=== PATIENT | male | born 1945 | race Caucasian/White ===

== ENCOUNTER 2017-01-21 12:54 | Inpatient (IN) ==
[2017-01-21] MEDS ORDERED: 0.9 % SODIUM CHLORIDE 1,000 ML IV ONE (13:18)
[2017-01-21] MEDS ORDERED: 0.9 % SODIUM CHLORIDE 2,000 ML IV ONE (13:39)
[2017-01-21] MEDS ORDERED: PIPERACILLIN SODIUM/TAZOBACTAM 3.375 GM in DEXTROSE 5% IN WATER 50 ML IV SCH (14:00)
[2017-01-21] MEDS ORDERED: ACETAMINOPHEN 325 MG TABLET PO ONE (14:18)
--- NOTE | 2017-01-21 14:34 | Emergency Department Note ---
Fever HPI - General Chief Complaint: Weakness Stated Complaint: sudden onset of weakness, sob Time Seen by Provider: 01/21/17 13:14 Source: patient Mode of arrival: ambulatory - History of Present Illness HPI Narrative: This 71-year-old male presents to the emergency room with onset of severe shivering and chills and shaking at 10 AM today. He reports that he was flopping so severely he could hardly get in a warm bathtub without flopping water all over the place. He denies previously having a temperature. He has some shortness of breath but this is a bit chronic maybe a little worse now. He was treated a couple weeks ago for a sinus infection. He has a minor cough that is nonproductive. He denies diarrhea. He's had 2 bowel movements today that were normal. He denies pain in his teeth sinus face area, denies chest pain, denies abdominal pain, denies dysuria frequency and urgency. He gets up once tonight. He has a near future scheduled appointment at [facility] [place] for [facility] exam. He has been on no immune suppressant. He is described by his doctor and son-in-law as looking bluish white when he got out of a hot tub this morning. He got in the hot tub on 2 separate occasions. His blood pressure at 11:50 AM was 180/60 while in the tub. At 12:15 was 120/80. He reports an interesting history of having a bad gallbladder and being significantly infected. He was life flighted to [place] and was there for about 18 days. This was approximately 3-4 years ago. There was a delay/denial in cholecystectomy because of a CVA criteria based on his ejection fraction of his heart being less than 40%. - Related Data Home Medications Medication Instructions Recorded Confirmed carvedilol 6.25 mg PO BID 03/27/16 08/13/16 doxazosin 8 mg PO QDAY 03/27/16 08/13/16 omeprazole 20 mg capsule,delayed 20 mg PO BID 03/27/16 08/13/16 release pentoxifylline ER 400 mg 400 mg PO BID 03/27/16 08/13/16 tablet,extended release aspirin 81 mg tablet,delayed 81 mg PO QDAY 05/20/16 08/13/16 release Vitamin E 400 unit PO DAILY 07/22/16 08/13/16 Previous Rx's Medication Instructions Recorded oxyCODONE/APAP [Percocet 10-325Mg] 1 - 2 tab PO Q4-6HP PRN #30 tab 07/25/16 Allergies Allergy/AdvReac Type Severity Reaction Status Date / Time lisinopril AdvReac Mild Cough Verified 01/21/17 13:00 Zmtfpzc-Dil-Eek Reductase AdvReac Mild hip and Verified 01/21/17 13:00 Inhibitor leg pain Review of Systems Constitutional: Reports: fever, chills, weakness Eyes: Reports: other (describes weak/difficulty opening eyes in AM. Goes away in few minutes.). Denies: eye pain Cardiovascular: Reports: dyspnea on exertion. Denies: chest pain, palpitations , edema Respiratory: Reports: as per HPI, other (shortness of breath some with exertion ; is chronic and persistent.) Gastrointestinal: Denies: abdominal pain, nausea, vomiting, diarrhea, constipation, hematochezia Genitourinary: Denies: urgency, dysuria, frequency Musculoskeletal: Reports: other (describes weakness in upper buttocks with certain more physical activities.). Denies: joint swelling, arthralgia Integumentary: Denies: rash, lesions Neurological: Denies: headache, weakness, numbness, paresthesias, confusion Psychiatric: Denies: anxiety, depression, suicidal thoughts Endocrine: Reports: fatigue Hematological/Lymphatic: Denies: easy bleeding, easy bruising Fever PMH - Past Medical History [facility] Narrative: Family History Father Heart attack Family/Other Heart attack Medical History (Last Updated 05/20/16 @ 15:29 by Ac Burt MD) History of tobacco use (Chronic) Cardiac LV ejection fraction 21-40% (Chronic) Hypertension, essential (Chronic) Acid reflux (Chronic) CAD (coronary artery disease) (Chronic) Cardiomyopathy (Chronic) Myocardial infarct, old (Chronic) Past Surgical History (Last Updated 05/20/16 @ 15:29 by Ac Burt MD) H/O colonoscopy (Chronic) 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 Denies: cancer, GI bleed, thyroid disease Surgical history ED: Reports: coronary bypass (CABG), other (Had a surgical procedure on his eye with a film on the retina being done in [place]. He had a urologic procedure for urethral scarring done in 2016.) Family history: Reports: non-contributory (recommendation that he recommendation that he is going) - Social History smoking status: Former smoker (remote 40 yrs ago) Alcohol use: Reports: Rarely (none for 6 months.) Drug use: Reports: none Course Vital Signs Temperature 100.8 F H 01/21/17 12:56 Pulse Rate 115 H 01/21/17 12:56 Respiratory Rate 20 01/21/17 12:56 Blood Pressure 137/79 01/21/17 12:56 Pulse Oximetry (%) 96 01/21/17 12:56 Temperature 98.1 F 01/21/17 15:17 Pulse Rate 85 01/21/17 15:46 Respiratory Rate 8 L 01/21/17 15:46 Blood Pressure 111/66 01/21/17 15:46 Pulse Oximetry (%) 94 01/21/17 15:46 Fever - [facility] [place] Narrative Medical decision making narrative: At 2:53 PM I had seen the patient several times and he remained with pinkness to his face that was mild to moderate and with stable vitals and normal sensorium. Chest x-ray appears to be unremarkable in my brief review. Several labs are still pending. - Lab Data Result diagrams: 01/21/17 14:20 01/21/17 14:19 Lab Results 01/21/17 01/21/17 01/21/17 Range/Units 14:16 14:16 14:17 WBC Cancelled RBC Cancelled Hgb Cancelled Hct Cancelled MCV Cancelled MCH Cancelled MCHC Cancelled RDW Cancelled Plt Count Cancelled MPV Cancelled Gran % Cancelled Lymph % (Auto) Cancelled [place] % (Auto) Cancelled Eos % (Auto) Cancelled Baso % (Auto) Cancelled Gran # Cancelled Lymph # Cancelled Garrard # Cancelled Eos # Cancelled Baso # Cancelled Band Neutrophils % Differential Comment Cancelled VBG Lactic Acid (0.5-2.2) mmol/L Sodium Cancelled Potassium Cancelled Chloride Cancelled Carbon Dioxide Cancelled Anion Gap Cancelled BUN Cancelled Creatinine Cancelled GFR Calculation Cancelled BUN/Creatinine Ratio Cancelled Glucose Cancelled Calcium Cancelled Total Bilirubin Cancelled AST Cancelled ALT Cancelled Alkaline Phosphatase Cancelled Total Protein Cancelled Albumin Cancelled Globulin Cancelled Albumin/Globulin Ratio Cancelled Procalcitonin 1.16 (<0.10) ng/mL Urine Color Urine Appearance Urine pH (5.0-9.0) Ur Specific [place] (1.000-1.035) Urine Protein (NEG) mg/dL Urine Glucose (UA) (NEG) mg/dL Urine Ketones (NEG) mg/dL Urine Occult Blood (<0.03) mg/dL Urine Nitrate (NEG) Urine Bilirubin (NEG) mg/dL Urine Urobilinogen (NEG) mg/dL Ur Leukocyte Esterase (NEG) /uL 01/21/17 01/21/17 01/21/17 Range/Units 14:19 14:19 14:20 WBC 13.1 H RBC 4.60 Hgb 12.5 L Hct 38.6 L MCV 84.0 MCH 27.1 MCHC 32.3 RDW 16.3 H Plt Count 309 MPV 7.1 L Gran % 92.3 H Lymph % (Auto) 3.4 L Garrard % (Auto) 3.5 Eos % (Auto) 0.8 Baso % (Auto) 0 Gran # 12.1 H Lymph # 0.4 L Garrard # 0.5 Eos # 0.1 Baso # 0 Band Neutrophils % Not Reportable Differential Comment VBG Lactic Acid (0.5-2.2) mmol/L Sodium 134 Potassium 4.0 Chloride 97 Carbon Dioxide 22 Anion Gap 15.0 BUN 13 Creatinine 0.9 GFR Calculation 86 BUN/Creatinine Ratio Glucose 112 H Calcium 8.8 Total Bilirubin 0.7 AST 14 ALT 13 Alkaline Phosphatase 82 Total Protein 6.9 Albumin 3.8 Globulin 3.1 Albumin/Globulin Ratio 1.2 Procalcitonin (<0.10) ng/mL Urine Color Urine Appearance Urine pH (5.0-9.0) Ur Specific [place] (1.000-1.035) Urine Protein (NEG) mg/dL Urine Glucose (UA) (NEG) mg/dL Urine Ketones (NEG) mg/dL Urine Occult Blood (<0.03) mg/dL Urine Nitrate (NEG) Urine Bilirubin (NEG) mg/dL Urine Urobilinogen (NEG) mg/dL Ur Leukocyte Esterase (NEG) /uL 01/21/17 01/21/17 Range/Units 14:20 14:32 WBC RBC Hgb Hct MCV MCH MCHC RDW Plt Count MPV Gran % Lymph % (Auto) Garrard % (Auto) Eos % (Auto) Baso % (Auto) Gran # Lymph # Garrard # Eos # Baso # Band Neutrophils % Differential Comment VBG Lactic Acid 1.8 (0.5-2.2) mmol/L Sodium Potassium Chloride Carbon Dioxide Anion Gap BUN Creatinine GFR Calculation BUN/Creatinine Ratio Glucose Calcium Total Bilirubin AST ALT Alkaline Phosphatase Total Protein Albumin Globulin Albumin/Globulin Ratio Procalcitonin (<0.10) ng/mL Urine Color Yellow Urine Appearance Clear Urine pH 5.0 (5.0-9.0) Ur Specific [place] 1.014 (1.000-1.035) Urine Protein Neg (NEG) mg/dL Urine Glucose (UA) Negative (NEG) mg/dL Urine Ketones Neg (NEG) mg/dL Urine Occult Blood Neg (<0.03) mg/dL Urine Nitrate Neg (NEG) Urine Bilirubin Neg (NEG) mg/dL Urine Urobilinogen Neg (NEG) mg/dL Ur Leukocyte Esterase Neg (NEG) /uL Disposition Clinical Impression: Sepsis Qualifiers: Sepsis type: sepsis due to unspecified organism Qualified Code(s): A41.9 - Sepsis, unspecified organism Summary: Patient remained relatively stable in the emergency room with his tachycardia coming down into the 85-90 range. Blood counts came back with a 92% granulocytes and white blood cell count of 13. UA was unremarkable. Given his presentation with fever, tachycardia, leukocytosis, weakness he meets the criteria for sepsis of unknown site /unknown specific organism. This was discussed with hospitalist, Dr. Canas, with patient to be admitted and followed by him. Patient and family in agreement. Disposition: Xfer As Inpt ([facility]) Condition: Fair Referrals: Ac Burt MD [Primary Care Provider] -
--- NOTE | 2017-01-21 14:43 | XRay Report ---
HISTORY: Reason for Exam:fever rigors tachy FINDINGS: There are thin linear scars laterally in the left mid thorax and above the left costophrenic sulcus. There is no evidence of pneumonia, pleural effusion or adenopathy. The heart size and pulmonary vasculature are normal. There are clips in the mediastinum following prior coronary bypass surgery. IMPRESSION: Minor scarring in the left mid and lower thorax. The chest is otherwise normal. Interpreted and Authenticated by: Luis Ramos 01/21/17
[2017-01-21 15:03] LABS: Basophils # (Auto) 0 K/mcL (0.0-0.3); Basophils % (Auto) 0 % (0.0-2.0); Eosinophils # (Auto) 0.1 K/mcL (0.0-0.7); Eosinophils % (Auto) 0.8 % (0.0-7.0); Granulocytes % (Auto) 92.3 % (38.0-78.0); Lymphocytes # (Auto) 0.4 K/mcL (1.5-4.8); Lymphocytes % (Auto) 3.4 % (15.5-49.0); Mean Corpuscular HGB Conc 32.3 g/dL (31.0-36.0); Mean Corpuscular Hemoglobin 27.1 pg (26.0-34.0); Monocytes # (Auto) 0.5 K/mcL (0.1-0.9); Monocytes % (Auto) 3.5 % (1.0-12.0); Platelet Count 309 K/mcL (140-440); Red Cell Distribution Width 16.3 % (11.5-14.5)
[2017-01-21 15:08] LABS: ALT/SGPT 13 U/l (0-40); Albumin 3.8 gm/dL (3.2-5.2); Albumin/Globulin Ratio 1.2 (1.0-2.3); Alkaline Phosphatase 82 U/L (39-117); Blood Urea Nitrogen 13 mg/dl (8-23)
[2017-01-21 15:14] LABS: Appearance,Urine CLEAR; Bilirubin,Urine NEG (NEG); Color,Urine YELLOW; Glucose,Urine (UA) NEGATIVE (NEG); Leukocyte Esterase,Urine NEG /uL (NEG); Nitrate,Urine NEG (NEG); Protein,Urine NEG (NEG); Specific Gravity,Urine 1.014 (1.000-1.035); Urine Blood NEG mg/dL (<0.03); Urobilinogen,Urine NEG (NEG)
[2017-01-21 17:11] LABS: Anisocytosis 1+ (NONE SEEN); Band Neutrophils % 9 % (0-10); Lymphocytes % 3 % (15-49); Monocytes % (Manual) 5 % (1-12); Platelet Estimate NORMAL (NORMAL); RBC Morphology ABNORM (NORMAL); Segmented Neutrophils % 83 % (38-78)
[2017-01-21] MEDS ORDERED: MAGNESIUM HYDROXIDE 30 ML ORAL.SUSP PO PRN (17:29)
[2017-01-21] MEDS ORDERED: MAGNESIUM SULFATE 2 GM/50 ML BAG IV PRN (17:29)
[2017-01-21] MEDS ORDERED: POTASSIUM CHLORIDE 20 MEQ PACKET PO PRN (17:29)
[2017-01-21] MEDS ORDERED: VANCOMYCIN PER PHARMACY IV SCH (17:29)
[2017-01-21] MEDS ORDERED: ONDANSETRON 4 MG/2 ML VIAL IV PRN (17:29)
[2017-01-21] MEDS ORDERED: ACETAMINOPHEN 325 MG TABLET PO PRN (17:29)
[2017-01-21] MEDS ORDERED: ACETAMINOPHEN 1,000 MG/100 ML BOTTLE IV PRN (17:29)
[2017-01-21] MEDS ORDERED: traZODone HCL 50 MG TABLET PO PRN (17:29)
[2017-01-21] MEDS: PIPERACILLIN SODIUM/TAZOBACTAM 3.375 GM in DEXTROSE 5% IN WATER 50 ML IV SCH (18:09)
[2017-01-21] MEDS: 0.9 % SODIUM CHLORIDE 1,000 ML IV SCH (18:09)
[2017-01-21] MEDS: VANCOMYCIN 1,250 MG in 0.9 % SODIUM CHLORIDE 500 ML IV SCH (18:55)
--- NOTE | 2017-01-21 20:39 | History and Physical Report ---
DATE OF ADMISSION: 01/21/2017 DATE OF ADMISSION: 01/21/2017 REASON FOR ADMISSION: Shaking chills, weakness. HISTORY OF CHIEF COMPLAINT: The patient is a 71-year-old with a history of ischemic cardiomyopathy, EF 30%, who is otherwise fairly functional and, was in his baseline state of health until this morning around 10:00, the patient started experiencing shaking chills and had progressed to the point, he felt, almost convulsing. To improve symptoms, he tried to have a hot shower and subsequently got relief for an hour and had a second episode. With increasing concerns, the patient's daughter was called and subsequently he was brought into [facility] ER. Initial workup was essentially unremarkable except for white count at 13,100 and 92% neutrophils. However, negative urine and chest imaging. Hospitalist Service was consulted in light of sepsis, given tachycardia, fever and leukocytosis, a fever of unknown origin. At the time of examination, the patient is alert and oriented. Denies sick contacts. Denies recent travel except to [place] a month ago. He has been active in scuba diving and last week worked on a large boat propeller, but denies any major nicks or aspiration. He also denies weight loss, glandular swelling, dysuria, diarrhea, cough, productive sputum, ENT symptoms, neck stiffness, headache, photophobia. REVIEW OF SYSTEMS: 10-point review of system was performed and negative except the ones discussed above. PAST MEDICAL HISTORY: 1. History of hyperlipidemia. 2. Coronary artery disease. 3. GERD. 4. NYHA Class 2 systolic heart failure with EF 30 percent. 5. Degenerative joint disease. ALLERGIES: 1. LISINOPRIL. 2. STATINS. SOCIAL HISTORY: The patient fairly independent, lives with his 2 cats. He is a FULL CODE STATUS. No history of smoking, recent alcoholism or substance abuse. His daughter lives locally and keeps a close check. FAMILY HISTORY: Significant for coronary artery disease in father. PHYSICAL EXAMINATION: GENERAL: The patient is alert and oriented. Denies any active distress. BMI 27. Height 5 feet 10 inches. VITAL SIGNS: Blood pressure 116/64, respiratory rate 17, temperature 98.8 down from 101 on arrival, tachycardia at 117 improving to 84, sats 95 percent on room air. HEENT: Pupils symmetric. Oral cavity dry. No ear or nose discharge. Head is normocephalic and atraumatic. NECK: No lymphadenopathy. HEART: S1, S2, regular rhythm. No murmur appreciated. CHEST: Clear to auscultation bilaterally, lateral posterior lung celaya. ABDOMEN: Soft and nontender. No organomegaly. LOWER EXTREMITIES: No cyanosis or clubbing. No joint swelling. SKIN: No suspicious lesions. PSYCHIATRIC: Alert and cooperative. No anxiety or agitation. NEUROLOGIC: Nonfocal, moving all 4 extremities. Normal higher functions. LABS AND IMAGING: White count 13,000, hemoglobin 12.5, platelets 309, neutrophils 92 percent, 9 percent bands. Lactic acid 1.8. Sodium 130, potassium 4.4, creatinine 0.9, BUN 13. LFTs unremarkable. Procalcitonin 1.16. UA unremarkable. Blood cultures pending. X-ray chest: No acute process. ASSESSMENT AND PLAN: 71-year-old with: 1. Fever of unknown origin along with sepsis. 2. Sepsis, SOFA Score 2. Admit as inpatient for further evaluation, blood cultures, antibiotics and close hemodynamic monitoring. 3. Blood cultures, urine cultures along with continued source evaluation. 4. Prior medical issues will be managed on home medications, including history of [place] Heart [employer] Class 2 systolic heart failure. Continue beta yoan. 5. History of gastroesophageal reflux disease. Continue proton pump inhibitor. PLAN FOR TREATMENT: 1. Admit as inpatient. 2. Source evaluation. 3. Antibiotic coverage including vancomycin and Zosyn for empiric coverage for gram negatives and MRSA and deescalate based on culture results. AA: Job ID: [id number] Doc ID: [id number] Ham Burt MD
[2017-01-21] MEDS ORDERED: OMEPRAZOLE 20 MG CAPSULE PO SCH (21:00)
[2017-01-21] MEDS: SENNOSIDES/DOCUSATE SODIUM 1 TAB TABLET PO SCH (22:15)
[2017-01-21] MEDS: HEPARIN 5,000 UNIT/ML VIAL SQ SCH (22:15)
[2017-01-21] MEDS: DOCUSATE SODIUM 100 MG CAPSULE PO SCH (22:15)
[2017-01-21] MEDS: DOXAZOSIN 4 MG TABLET PO SCH (22:16)
[2017-01-21] MEDS: 0.9 % SODIUM CHLORIDE 10 ML SYRINGE IV SCH (22:41)
[2017-01-21] MEDS: CARVEDILOL 6.25 MG TABLET PO SCH (22:41)
[2017-01-21] MEDS: PANTOPRAZOLE 40 MG TABLET PO SCH (22:42)
[2017-01-22] MEDS: PIPERACILLIN SODIUM/TAZOBACTAM 3.375 GM in DEXTROSE 5% IN WATER 50 ML IV SCH ×5 (00:20→23:54)
[2017-01-22] MEDS: DOCUSATE SODIUM 100 MG CAPSULE PO SCH ×3 (02:32→21:08)
[2017-01-22] MEDS: SENNOSIDES/DOCUSATE SODIUM 1 TAB TABLET PO SCH ×2 (02:33→21:08)
[2017-01-22] MEDS: 0.9 % SODIUM CHLORIDE 10 ML SYRINGE IV SCH ×3 (05:52→21:08)
[2017-01-22 06:11] LABS: Mean Cell Volume 84.6 fL (80.0-100.0); Mean Corpuscular HGB Conc 32.5 g/dL (31.0-36.0); Mean Corpuscular Hemoglobin 27.5 pg (26.0-34.0); Platelet Count 235 K/mcL (140-440); RBC 4.15 M/mcL (4.50-5.90); Red Cell Distribution Width 16.6 % (11.5-14.5)
[2017-01-22 06:55] LABS: ALT/SGPT 12 U/l (0-40); Albumin 3.2 gm/dL (3.2-5.2); Albumin/Globulin Ratio 1.2 (1.0-2.3); Alkaline Phosphatase 71 U/L (39-117); Bilirubin,Direct < 0.2 mg/dL (0.0-0.3); Blood Urea Nitrogen 11 mg/dl (8-23); Gamma Glutamyl Transpeptidase 24 U/L (8-61); Magnesium 2.1 mg/dL (1.6-2.5); Uric Acid 3.3 mg/dL (2.5-8.0)
[2017-01-22] MEDS: PANTOPRAZOLE 40 MG TABLET PO SCH ×2 (07:00→17:00)
[2017-01-22 08:33] LABS: Anisocytosis 1+ (NONE SEEN); Band Neutrophils % 3 % (0-10); Eosinophils % (Manual) 2 % (0-7); Lymphocytes % 9 % (15-49); Monocytes % (Manual) 10 % (1-12); Platelet Estimate NORMAL (NORMAL); RBC Morphology ABNORM (NORMAL); Segmented Neutrophils % 77 % (38-78)
[2017-01-22] MEDS: CARVEDILOL 6.25 MG TABLET PO SCH ×2 (08:45→17:00)
[2017-01-22] MEDS: ASPIRIN 81 MG TAB.CHEW PO SCH (08:45)
[2017-01-22] MEDS: MULTIVIT,THER IRON,CA,FA & MIN 1 TABLET PO SCH (08:45)
[2017-01-22] MEDS: HEPARIN 5,000 UNIT/ML VIAL SQ SCH ×2 (08:50→21:07)
[2017-01-22] MEDS: VANCOMYCIN 1,250 MG in 0.9 % SODIUM CHLORIDE 500 ML IV SCH ×2 (08:50→21:07)
--- NOTE | 2017-01-22 09:42 | Internal Med Progress Note ---
Medical - PN: Subj Patient information: Note initiated : 01/22/17 at 9:40 am Service Date, if different from initiated Date: [] Patient: Jacquelin Red 71 y/o M admitted on 01/21/17 for sudden onset of weakness, sob. Chief Complaint: [] Interval history: 01/21-patient admitted with fever of unknown origin with shaking chills and white count 13,000. Workup pending. pro-calcitonin over 1. On broad antibiotic coverage. Admitted as inpatient MedSurg 01/22- Overnight episodes of shaking chills. White count however down to 6000. Cultures negative so far. CT abdomen chest/pelvis with contrast. continue source evaluation. Possible discharge in 24 hours with outpatient antibiotics if no further source identified. - Constitutional Vitals: Vital Signs Temp Pulse Resp BP Pulse Ox 97.2 F 72 16 138/87 96 01/22/17 07:49 01/22/17 07:49 01/22/17 07:49 01/22/17 07:49 01/22/17 07:49 Period Temp Pulse Resp BP Sys/Shrestha Pulse Ox Last 24 Hr 97.2 F-99.3 F 69-88 14-18 109-148/66-87 93-97 Intake and Output 01/21/17 01/22/17 01/22/17 21:59 05:59 13:59 Intake Total 790 / 3340 875 / 875 290 / 290 Output Total 1750 / 1750 325 / 325 Balance 790 / 3340 -875 / -875 -35 / -35 Weight 179 lb Intake & Output: Intake & Output 01/21/17 01/22/17 01/22/17 21:59 05:59 13:59 Intake Total 790 / 3340 875 / 875 290 / 290 Output Total 1750 / 1750 325 / 325 Balance 790 / 3340 -875 / -875 -35 / -35 Weight 179 lb Intake: IV 550 / 550 150 / 150 50 / 50 Zosyn 3.375 gm In 50 / 50 50 / 50 50 / 50 Dextrose 5% in Water 50 ml @ 100 mls/hr IV Q6H [facility] Rx#:[id number] Vancomycin 1,250 mg In 500 / 500 Sodium Chloride 0.9% 500 ml @ 333.3 mls/hr IV Q12H [facility] Rx#:[id number] Oral 240 / 240 725 / 725 240 / 240 Output: Void Amount 1750 / 1750 325 / 325 Other: Meal Dinner Breakfast Percent of Meal Consumed 100% 100% Feeding Ability Independent Independent # Voids 1 General appearance: cooperative, no acute distress Exam: alert oriented nonlabored breathing No anxiety Medical - PN: Obj Da - Labs CBC & Chem 7: 01/22/17 04:34 01/22/17 04:34 Labs: Abnormal Lab Results 01/22/17 01/22/17 04:34 04:34 RBC 4.15 L Hgb 11.4 L Hct 35.1 L RDW 16.6 H MPV 7.0 L Lymphocytes % 9 L RBC Morphology Abnorm A Anisocytosis 1+ A Glucose 109 H Calcium 8.4 L Total Protein 5.8 L Meds: Medications Acetaminophen (Tylenol) 650 mg PO Q4-6HP PRN PRN Reason: PAIN/FEVER > 101 Aspirin (Aspirin) 81 mg PO DAILY [facility] Last Admin: 01/22/17 08:45 Dose: 81 mg [facility] Last Admin: 01/22/17 08:45 Dose: 6.25 mg Docusate Sodium (Colace) 100 mg PO BID [facility] Last Admin: 01/22/17 08:50 Dose: Not Given Doxazosin Mesylate (Cardura) 8 mg PO HS [facility] Last Admin: 01/21/17 22:16 Dose: 8 mg Heparin Sodium (Porcine) (Heparin) 5,000 unit SQ Q12 [facility] Last Admin: 01/22/17 08:50 Dose: 5,000 unit Magnesium Sulfate (Magnesium Sulfate) 2 gm in 50 mls @ 50 mls/hr IV UD PRN PRN Reason: MG = or < 1.7 Sodium Chloride (Sodium Chloride 0.9%) 1,000 mls @ 50 mls/hr IV .Q20H [facility] Stop: 01/24/17 05:28 Last Admin: 01/21/17 18:09 Dose: 50 mls/hr Acetaminophen (Ofirmev) 1,000 mg in 100 mls @ 200 mls/hr IV Q6HP PRN PRN Reason: PAIN/FEVER > 101 Last Infusion: 01/21/17 22:46 Dose: Infused Piperacillin Sod/Tazobactam (Sod 3.375 gm/ Dextrose) 50 mls @ 100 mls/hr IV Q6H [facility] Last Infusion: 01/22/17 06:19 Dose: Infused Vancomycin HCl 1,250 mg/ (Sodium Chloride) 500 mls @ 333.3 mls/hr IV Q12H [facility] Last Admin: 01/22/17 08:50 Dose: 333.3 mls/hr Iron Carb/Multivit/[place]/Folic Acid (Multivitamin W/Minerals) 1 tab PO DAILY [facility] Last Admin: 01/22/17 08:45 Dose: 1 tab Magnesium Hydroxide (Milk Of Magnesia) 30 ml PO HSP PRN PRN Reason: Constipation Ondansetron HCl (Zofran) 4 mg IV Q4-6HP PRN PRN Reason: Nausea And Vomiting Pantoprazole Sodium (Protonix) 40 mg PO BIDAC [facility] Last Admin: 01/22/17 07:00 Dose: 40 mg Potassium Chloride (Klor-Con) 40 meq PO DAILYP PRN PRN Reason: K+ < 3.5 Senna/Docusate Sodium (Senna Plus Tablet) 1 tab PO HS [facility] Last Admin: 01/22/17 02:33 Dose: Not Given Sodium Chloride (Saline Flush) 10 ml IV Q8 [facility] Last Admin: 01/22/17 05:52 Dose: Not Given Trazodone HCl (Desyrel) 50 mg PO HSP PRN PRN Reason: Insomnia Vancomycin HCl (Vancomycin Per Pharmacy) 1 order IV UD [facility] Medical - PN: A/P - Time Spent With Patient Total time spent is greater than 50% in coordination of care (as documented) at patient's floor/unit and/or counseling patient: 15 - 24 minutes (1) Fever of unknown origin Status: Acute Assessment and plan: * fever of unknown origin- likely infectious. Responding to antibiotics. CT chest abdomen pelvis pending. pro-calcitonin 1.16. negative UA/blood cultures so far. * history of NYHA class oh systolic heart failure EF 30%-continue Coreg/aspirin * gERD on PPI * Hypertension Coreg/doxazosin * Full CODE STATUS Plan * CT abdomen and chest * Continue antibiotic coverage * pre-existing medical condition management as above * Possible discharge in 24 hours Current Visit: Yes Medical - PN: Qual - VTE Deep Vein Thrombosis/Pulmonary Embolism Present on Admission: No
[2017-01-22] MEDS ORDERED: IOPAMIDOL 100 ML BOTTLE IV ONE (11:05)
--- NOTE | 2017-01-22 12:07 | Cat Scan Report ---
History: Sudden onset weakness and shortness of breath Findings: The patient was imaged following oral and intravenous contrast scanning from the thoracic inlet to the symphysis pubis. Sagittal and coronal reformats were created. Five minute delayed images of the upper abdomen were acquired and MIPS images of the chest were created. Chest: There are a few thin linear bands of scar or discoid atelectasis in the lingula right middle lobe and left lower lobe. There is no evidence of pneumonia, pulmonary mass, pleural effusion or adenopathy. There are a few small scattered bulla. The patient has had a prior sternotomy with coronary artery bypass surgery. The heart size is within normal limits. There are densely calcified plaques in the north fork coronary arteries. The pulmonary arteries are normal without evidence of pulmonary emboli. The aorta is normal in caliber and there is no aneurysm or dissection. Abdomen and pelvis: There are multiple small cysts scattered throughout the liver. The largest is in the caudate lobe and measures 1.7 cm. No solid mass is seen in the liver and there is no infiltrative process. Gallbladder has been removed. The extrahepatic bile ducts are prominent but not abnormal distended. There is no evidence of a stone in the distal duct. The pancreas is normal without evidence for mass or inflammation. There are several calcified granulomata in the spleen. The spleen is normal in size. The adrenals are normal bilaterally. There several very small cortical cysts in both kidneys. There is no kidney stone renal mass or hydronephrosis. A great deal of calcified plaque is present along the vogt of the aorta with milder involvement in the iliac arteries. The aorta is normal in caliber and there is no aneurysm or dissection. The mid sigmoid colon is abnormally distended and has abnormally thickened vogt. There are multiple diverticula in this region. This abnormal segment is 11 cm in length and 6 cm in diameter. The wall measures up to 12 mm in thickness. There are multiple diverticula in this region. No free fluid or free air are present. This is a chronic stable finding with little change from the prior upper abdomen CT done on 05/01/11. The remainder of the bowel appears normal. The appendix is noninflamed. Urinary bladder is well distended and no abnormality seen within it. Prostate is mildly enlarged. Seminal vesicles appear normal and symmetric. Impression: Mild scarring or discoid atelectasis in both lungs. Diverticulitis of the sigmoid colon. This is a chronic or recurrent finding. Dr. Morris was called with results Interpreted and Authenticated by: Luis Ramos 01/22/17
[2017-01-22] MEDS: 0.9 % SODIUM CHLORIDE 1,000 ML IV SCH (12:26)
[2017-01-22] MEDS: DOXAZOSIN 4 MG TABLET PO SCH (21:08)
[2017-01-23 05:52] LABS: Mean Cell Volume 84.3 fL (80.0-100.0); Mean Corpuscular Hemoglobin 27.8 pg (26.0-34.0); Platelet Count 232 K/mcL (140-440); Red Cell Distribution Width 16.7 % (11.5-14.5)
[2017-01-23] MEDS: PIPERACILLIN SODIUM/TAZOBACTAM 3.375 GM in DEXTROSE 5% IN WATER 50 ML IV SCH ×3 (06:03→17:20)
[2017-01-23] MEDS: 0.9 % SODIUM CHLORIDE 10 ML SYRINGE IV SCH ×3 (06:03→20:52)
[2017-01-23 06:13] LABS: ALT/SGPT 12 U/l (0-40); Albumin 3.4 gm/dL (3.2-5.2); Albumin/Globulin Ratio 1.3 (1.0-2.3); Alkaline Phosphatase 64 U/L (39-117); Bilirubin,Direct < 0.2 mg/dL (0.0-0.3); Blood Urea Nitrogen 8 mg/dl (8-23); Gamma Glutamyl Transpeptidase 24 U/L (8-61); Magnesium 2.1 mg/dL (1.6-2.5); Uric Acid 3.2 mg/dL (2.5-8.0)
[2017-01-23 06:45] LABS: Anisocytosis 1+ (NONE SEEN); Band Neutrophils % 2 % (0-10); Eosinophils % (Manual) 2 % (0-7); Lymphocytes % 18 % (15-49); Monocytes % (Manual) 8 % (1-12); Platelet Estimate NORMAL (NORMAL); RBC Morphology ABNORM (NORMAL); Segmented Neutrophils % 69 % (38-78)
[2017-01-23] MEDS: PANTOPRAZOLE 40 MG TABLET PO SCH ×2 (06:58→17:20)
[2017-01-23] MEDS: MULTIVIT,THER IRON,CA,FA & MIN 1 TABLET PO SCH (08:30)
[2017-01-23] MEDS: DOCUSATE SODIUM 100 MG CAPSULE PO SCH ×2 (08:31→20:51)
[2017-01-23] MEDS: HEPARIN 5,000 UNIT/ML VIAL SQ SCH ×2 (08:31→20:49)
[2017-01-23] MEDS: ASPIRIN 81 MG TAB.CHEW PO SCH (08:31)
[2017-01-23] MEDS: CARVEDILOL 6.25 MG TABLET PO SCH ×2 (08:31→17:20)
--- NOTE | 2017-01-23 08:33 | XRay Report ---
HISTORY: Reason for Exam:Interval Change- FUO , sudden onset shortness of breath and weakness FINDINGS: There is a thin linear band of scar tissue laterally in the left mid thorax. The lungs are otherwise clear and normally expanded. The heart size is normal. There has been prior coronary bypass surgery. No congestive heart failure or pleural effusion are present. IMPRESSION: Thin linear scar in the region of the lingula. The chest is otherwise normal. Interpreted and Authenticated by: Luis Ramos 01/23/17
--- NOTE | 2017-01-23 09:43 | Internal Med Progress Note ---
Medical - PN: Subj Patient information: Note initiated : 01/23/17 at 9:41 am Service Date, if different from initiated Date: [] Patient: Jacquelin Red 71 y/o M admitted on 01/21/17 for sudden onset of weakness, sob. Chief Complaint: [] Interval history: 01/21-patient admitted with fever of unknown origin with shaking chills and white count 13,000. Workup pending. pro-calcitonin over 1. On broad antibiotic coverage. Admitted as inpatient MedSurg 01/22- Overnight episodes of shaking chills. White count however down to 6000. Cultures negative so far. CT abdomen chest/pelvis with contrast. continue source evaluation. Possible discharge in 24 hours with outpatient antibiotics if no further source identified. 01/23- edenilson-positive cocci in blood culture, await identification and sensitivities. Surveillance pending. Continue vancomycin/Zosyn. Diverticulitis on CT likely source for bacteremia. patient clinically improved. Possible discharge in 48 hours once culture sensitivities available with outpatient 14 days antibiotics. dietry consult for diet management - Constitutional Vitals: Vital Signs Temp Pulse Resp BP Pulse Ox 98.2 F 64 18 129/76 96 01/23/17 07:27 01/23/17 06:56 01/23/17 07:27 01/23/17 07:27 01/23/17 07:27 Period Temp Pulse Resp BP Sys/Shrestha Pulse Ox Last 24 Hr 97.4 F-98.9 F 63-66 12-18 129-169/75-84 95-97 Intake and Output 01/22/17 01/23/17 01/23/17 21:59 05:59 13:59 Intake Total 50 / 50 125 / 125 Output Total 650 / 650 1700 / 1700 Balance -600 / -600 -1575 / -1575 Weight 180 lb 8 oz Intake & Output: Intake & Output 01/22/17 01/23/17 01/23/17 21:59 05:59 13:59 Intake Total 50 / 50 125 / 125 Output Total 650 / 650 1700 / 1700 Balance -600 / -600 -1575 / -1575 Weight 180 lb 8 oz Intake: IV 50 / 50 50 / 50 Zosyn 3.375 gm In 50 / 50 50 / 50 Dextrose 5% in Water 50 ml @ 100 mls/hr IV Q6H [facility] Rx#:[id number] Oral 75 / 75 Output: Void Amount 650 / 650 1700 / 1700 Other: # Voids 1 General appearance: cooperative, no acute distress Exam: oriented alert nonlabored breathing nondistended Nontender abdomen no pallor Medical - PN: Obj Da - Labs CBC & Chem 7: 01/23/17 04:19 01/23/17 04:19 Labs: Abnormal Lab Results 01/23/17 01/23/17 01/22/17 04:19 04:19 04:34 RBC 4.20 L Hgb 11.7 L Hct 35.4 L RDW 16.7 H MPV 7.1 L Lymphocytes % RBC Morphology Abnorm A Anisocytosis 1+ A Glucose 109 H Calcium 8.4 L 8.4 L Total Protein 5.8 L 01/22/17 04:34 RBC 4.15 L Hgb 11.4 L Hct 35.1 L RDW 16.6 H MPV 7.0 L Lymphocytes % 9 L RBC Morphology Abnorm A Anisocytosis 1+ A Glucose Calcium Total Protein Meds: Medications Acetaminophen (Tylenol) 650 mg PO Q4-6HP PRN PRN Reason: PAIN/FEVER > 101 Aspirin (Aspirin) 81 mg PO DAILY [facility] Last Admin: 01/23/17 08:31 Dose: 81 mg Carvedilol (Coreg) 6.25 mg PO BIDCC [facility] Last Admin: 01/23/17 08:31 Dose: 6.25 mg Docusate Sodium (Colace) 100 mg PO BID [facility] Last Admin: 01/23/17 08:31 Dose: Not Given Doxazosin Mesylate (Cardura) 8 mg PO HS [facility] Last Admin: 01/22/17 21:08 Dose: 8 mg Heparin Sodium (Porcine) (Heparin) 5,000 unit SQ Q12 [facility] Last Admin: 01/23/17 08:31 Dose: 5,000 unit Magnesium Sulfate (Magnesium Sulfate) 2 gm in 50 mls @ 50 mls/hr IV UD PRN PRN Reason: MG = or < 1.7 Sodium Chloride (Sodium Chloride 0.9%) 1,000 mls @ 50 mls/hr IV .Q20H [facility] Stop: 01/24/17 05:28 Last Admin: 01/22/17 12:26 Dose: Not Given Acetaminophen (Ofirmev) 1,000 mg in 100 mls @ 200 mls/hr IV Q6HP PRN PRN Reason: PAIN/FEVER > 101 Last Infusion: 01/21/17 22:46 Dose: Infused Piperacillin Sod/Tazobactam (Sod 3.375 gm/ Dextrose) 50 mls @ 100 mls/hr IV Q6H [facility] Last Admin: 01/23/17 06:03 Dose: 100 mls/hr Vancomycin HCl 1,250 mg/ (Sodium Chloride) 500 mls @ 333.3 mls/hr IV Q12H [facility] Last Admin: 01/22/17 21:07 Dose: 333.3 mls/hr Iron Carb/Multivit/Computer Security Specialist/Folic Acid (Multivitamin W/Minerals) 1 tab PO DAILY [facility] Last Admin: 01/23/17 08:30 Dose: 1 tab Magnesium Hydroxide (Milk Of Magnesia) 30 ml PO HSP PRN PRN Reason: Constipation Ondansetron HCl (Zofran) 4 mg IV Q4-6HP PRN PRN Reason: Nausea And Vomiting Pantoprazole Sodium (Protonix) 40 mg PO BIDAC [facility] Last Admin: 01/23/17 06:58 Dose: 40 mg Potassium Chloride (Klor-Con) 40 meq PO DAILYP PRN PRN Reason: K+ < 3.5 Senna/Docusate Sodium (Senna Plus Tablet) 1 tab PO HS [facility] Last Admin: 01/22/17 21:08 Dose: Not Given Sodium Chloride (Saline Flush) 10 ml IV Q8 [facility] Last Admin: 01/23/17 06:03 Dose: Not Given Trazodone HCl (Desyrel) 50 mg PO HSP PRN PRN Reason: Insomnia Last Admin: 01/22/17 22:23 Dose: 50 mg Vancomycin HCl (Vancomycin Per Pharmacy) 1 order IV UD [facility] Medical - PN: A/P - Time Spent With Patient Total time spent is greater than 50% in coordination of care (as documented) at patient's floor/unit and/or counseling patient: 25 - 35 minutes (1) Fever of unknown origin Status: Acute Assessment and plan: * gram-positive bacteremia-ensitivities and identification pending. Repeat surveillance cultures. On vancomycin. target 14 day treatment * Acute diverticulitis-likely source of bacteremia. Continue Zosyn. Switch to orals on discharge. * history of NYHA class II systolic heart failure EF 30%-continue Coreg/ aspirin. patient is allergic to OMID inhibitor. Will defer to primary care physician for hydralazine/nitrate combination as an alternative(proven benefit in systolic heart failure) * GERD on PPI * Hypertension Coreg/doxazosin * Full CODE STATUS Plan * continue surveillance cultures * antibiotic coverage * Diet consult for underlying diverticulitis * Possible discharge in 24 hours on oral antibiotics once culture sensitivities available Current Visit: Yes Medical - PN: Qual - VTE Deep Vein Thrombosis/Pulmonary Embolism Present on Admission: No
[2017-01-23] MEDS: VANCOMYCIN 1,250 MG in 0.9 % SODIUM CHLORIDE 500 ML IV SCH ×2 (10:07→20:53)
[2017-01-23] MEDS: 0.9 % SODIUM CHLORIDE 1,000 ML IV SCH (10:07)
[2017-01-23] MEDS: DOXAZOSIN 4 MG TABLET PO SCH (20:50)
[2017-01-23] MEDS: SENNOSIDES/DOCUSATE SODIUM 1 TAB TABLET PO SCH (20:51)
[2017-01-24] MEDS: PIPERACILLIN SODIUM/TAZOBACTAM 3.375 GM in DEXTROSE 5% IN WATER 50 ML IV SCH ×2 (00:10→06:00)
[2017-01-24 05:11] LABS: Mean Cell Volume 83.1 fL (80.0-100.0); Mean Corpuscular HGB Conc 33.2 g/dL (31.0-36.0); Mean Corpuscular Hemoglobin 27.6 pg (26.0-34.0); Platelet Count 260 K/mcL (140-440); RBC 4.26 M/mcL (4.50-5.90); Red Cell Distribution Width 16.3 % (11.5-14.5)
[2017-01-24 05:30] LABS: ALT/SGPT 11 U/l (0-40); Albumin 3.3 gm/dL (3.2-5.2); Albumin/Globulin Ratio 1.2 (1.0-2.3); Alkaline Phosphatase 58 U/L (39-117); Bilirubin,Direct < 0.2 mg/dL (0.0-0.3); Blood Urea Nitrogen 8 mg/dl (8-23); Gamma Glutamyl Transpeptidase 22 U/L (8-61); Magnesium 2.2 mg/dL (1.6-2.5); Uric Acid 3.7 mg/dL (2.5-8.0)
[2017-01-24] MEDS: 0.9 % SODIUM CHLORIDE 1,000 ML IV SCH (06:00)
[2017-01-24] MEDS: 0.9 % SODIUM CHLORIDE 10 ML SYRINGE IV SCH ×2 (06:00→14:23)
[2017-01-24 06:22] LABS: Anisocytosis 1+ (NONE SEEN); Band Neutrophils % 2 % (0-10); Eosinophils % (Manual) 2 % (0-7); Lymphocytes % 25 % (15-49); Monocytes % (Manual) 7 % (1-12); Platelet Estimate NORMAL (NORMAL); RBC Morphology ABNORM (NORMAL); Segmented Neutrophils % 64 % (38-78)
[2017-01-24] MEDS: PANTOPRAZOLE 40 MG TABLET PO SCH ×2 (06:59→17:24)
[2017-01-24] MEDS ORDERED: metroNIDAZOLE 500 MG TABLET PO ONE (09:16)
[2017-01-24] MEDS ORDERED: CIPROFLOXACIN 500 MG TABLET PO ONE (09:16)
[2017-01-24] MEDS: MULTIVIT,THER IRON,CA,FA & MIN 1 TABLET PO SCH (09:30)
[2017-01-24] MEDS: ASPIRIN 81 MG TAB.CHEW PO SCH (09:30)
[2017-01-24] MEDS: CARVEDILOL 6.25 MG TABLET PO SCH ×2 (09:31→17:24)
[2017-01-24] MEDS: HEPARIN 5,000 UNIT/ML VIAL SQ SCH (09:36)
[2017-01-24] MEDS: VANCOMYCIN 1,250 MG in 0.9 % SODIUM CHLORIDE 500 ML IV SCH (09:55)
[2017-01-24] MEDS: DOCUSATE SODIUM 100 MG CAPSULE PO SCH (10:31)
[2017-01-24] MEDS ORDERED: metroNIDAZOLE 500 MG TABLET PO SCH (14:00)
--- NOTE | 2017-01-24 15:53 | Discharge Summary ---
Medical - DS: Prov Patient information: Note initiated : 01/24/17 at 3:49 pm Service Date, if different from initiated Date: [] Patient: Jacquelin Red 71 y/o M admitted on 01/21/17 for sudden onset of weakness, sob. Chief Complaint: [] Date of admission: 01/21/17 17:20 Discharge date: 01/24/17 Primary care physician: Ac Burt Medical - DS: Meds - Discharge Medications Prescriptions: Acetaminophen [Tylenol] 650 mg PO Q4-6HP PRN #30 tablet PRN Reason: Pain/Fever > 101 Ciprofloxacin [Cipro] 500 mg PO BID #20 tablet metroNIDAZOLE [Flagyl] 500 mg PO Q8 #30 tablet Active and Home Medications: Home Medications carvedilol 6.25 mg PO BID 03/27/16 [History Confirmed 01/21/17 Last Taken ] doxazosin 8 mg PO HS 03/27/16 [History Confirmed 01/21/17 Last Taken 01/20/17] omeprazole 20 mg capsule,delayed release 20 mg PO BID 03/27/16 [History Confirmed 01/21/17 Last Taken 01/21/17] aspirin 81 mg tablet,delayed release 81 mg PO QDAY 05/20/16 [History Confirmed 01/21/17 Last Taken 01/21/17] Acetaminophen [Tylenol] 650 mg PO Q4-6HP PRN #30 tablet 01/24/17 [Rx Last Taken Unknown] Ciprofloxacin [Cipro] 500 mg PO BID #20 tablet 01/24/17 [Rx Last Taken Unknown] metroNIDAZOLE [Flagyl] 500 mg PO Q8 #30 tablet 01/24/17 [Rx Last Taken Unknown] Medical - DS: Hosp Hospital course: DISCHARGE DIAGNOSIS * Acute diverticulitis-likely source of bacteremia. continue additional 10 days Flagyl/ciprofloxacin * Gram-positive bacteremia- Coag negative staph, contaminant * history of NYHA class II systolic heart failure EF 30%-continue Coreg/aspirin at home dose. follow-up PCP for optimization of CHF management * GERD on PPI * Hypertension Coreg/doxazosin * Full CODE STATUS HOSPITAL COURSE 01/21-patient admitted with fever of unknown origin with shaking chills and white count 13,000. Workup pending. pro-calcitonin over 1. On broad antibiotic coverage. Admitted as inpatient MedSurg 01/22- Overnight episodes of shaking chills. White count however down to 6000. Cultures negative so far. CT abdomen chest/pelvis with contrast. continue source evaluation. Possible discharge in 24 hours with outpatient antibiotics if no further source identified. 01/23- Gram-positive cocci in blood culture, await identification and sensitivities. Surveillance pending. Continue vancomycin/Zosyn. Diverticulitis on CT likely source for bacteremia. patient clinically improved. Possible discharge in 48 hours once culture sensitivities available with outpatient 14 days antibiotics. dietry consult for diet management 01/24-patient doing well. No overnight events. Tolerating diet. Dietitian consult for diverticulitis diet. Recommendations provided. Detailed discharge instructions as below. Continue antibiotics for additional 10 days Discharge diagnosis: . - Time Spent with Patient Total time spent providing and/or coordinating discharge services: Greater than 30 minutes Medical - DS: Exam - Constitutional Vitals: Vital Signs Temp Pulse Resp BP BP Pulse Ox 01/24/17 11:36 98.1 F 18 139/75 96 01/24/17 09:30 60 01/24/17 07:43 97.4 F 18 145/78 95 01/24/17 05:56 96 01/24/17 04:00 98.0 F 55 L 16 152/81 96 01/24/17 00:10 97.6 F 57 L 16 158/82 96 01/23/17 21:00 98.7 F 65 16 128/77 96 01/23/17 16:00 98.4 F 57 L 16 157/84 96 Intake and Output 01/24/17 01/24/17 01/24/17 05:59 13:59 21:59 Intake Total 450 / 450 120 / 120 Output Total 900 / 900 Balance -450 / -450 120 / 120 Intake: IV 50 / 50 Zosyn 3.375 gm In 50 / 50 Dextrose 5% in Water 50 ml @ 100 mls/hr IV Q6H [facility] Rx#:[id number] Oral 400 / 400 120 / 120 Output: Void Amount 900 / 900 Other: Meal Lunch Percent of Meal Consumed 100% Feeding Ability Independent # Voids 2 Medical - DS: Data Labs on day of discharge: Labs from last 24 hours 01/24/17 01/24/17 04:03 04:03 WBC 5.8 RBC 4.26 L Hgb 11.7 L Hct 35.4 L MCV 83.1 MCH 27.6 MCHC 33.2 RDW 16.3 H Plt Count 260 MPV 6.8 L Total Counted 100 Seg Neutrophils % 64 Band Neutrophils % 2 Lymphocytes % 25 Monocytes % (Manual) 7 Eosinophils % (Manual) 2 Platelet Estimate Normal RBC Morphology Abnorm A Anisocytosis 1+ A Sodium 140 Potassium 3.8 Chloride 107 Carbon Dioxide 22 Anion Gap 11.0 BUN 8 Creatinine 0.9 GFR Calculation 86 Glucose 80 Uric Acid 3.7 Calcium 8.5 L Phosphorus 4.0 Magnesium 2.2 Total Bilirubin 0.4 Direct Bilirubin < 0.2 GGT 22 AST 11 ALT 11 Alkaline Phosphatase 58 Lactate Dehydrogenase 101 Total Protein 6.1 Albumin 3.3 Globulin 2.8 Albumin/Globulin Ratio 1.2 Triglycerides 167 H Preliminary micro results at discharge 01/22/17 00:08 Blood Culture - Preliminary Blood 01/22/17 22:29 Blood Culture - Preliminary Blood Medical - DS: A/P - Patient/Caregiver Discharge Instructions Activity: increase activity as tolerated Diet: High Fiber Additional Instructions: diet as per dietitian Follow-up PCP in 5 days I recommend primary care physician to check CBC BMP in 5-7 days Antibiotics for 10 days oral ciprofloxacin/Flagyl Continue aggressive bowel regimen to prevent constipation Continue fall precautions Return to ER if worsening abdominal pain,fever chills shortness of breath, diarrhea, bleeding Review risk and side effect profile of medications including antibiotics. Side effect may include mild to severe reaction including rash, diarrhea, cdiff and even which can be prevented by close follow-up with PCP and monitoring for side effects Refrain from [id number] reaction Continue diet and activity as advised Discussed importance of medication adherence Please review medication list with patient prior to discharge Please schedule follow-up with PCP/Providers prior to discharge and provide printouts Portions of this chart may have been created with [employer] voice recognition software. Occasional wrong-word or ?sound-like? substitutions may have occurred due to the inherent limitations of voice recognition software. Please read the chart carefully and recognize, using context, where the substitutions have occurred. CC- PCP Prescriptions: Acetaminophen [Tylenol] 650 mg PO Q4-6HP PRN #30 tablet PRN Reason: Pain/Fever > 101 Ciprofloxacin [Cipro] 500 mg PO BID #20 tablet metroNIDAZOLE [Flagyl] 500 mg PO Q8 #30 tablet - Problem Maintenance (1) Fever of unknown origin Status: Acute - Follow up Plan Follow up with: Ac Burt MD [Primary Care Provider] - 02/06/17 10:30 am Disposition: Home, Self-Care Prognosis: Fair Rehab Potential: Fair I certify that the patient requires SNF services: No Overall status at discharge: patient is progressing back to baseline Medical - DS: Qual - VTE Deep Vein Thrombosis/Pulmonary Embolism Present on Admission: No
[2017-01-24] MEDS ORDERED: CIPROFLOXACIN 500 MG TABLET PO SCH (21:00)
== END 2017-01-24 17:46 | disposition home or self-care (01) | DRG 872 ==
LOC: ED 12:54 → MEDSUR 17:20
PROVIDERS: ADMIT Internal Medicine; ATTEND Internal Medicine

== ENCOUNTER 2018-12-31 09:35 | Inpatient (IN) ==
[2018-12-31 11:03] LABS: Basophils # (Auto) 0 K/mcL (0.0-0.3); Basophils % (Auto) 0.2 % (0.0-2.0); Eosinophils # (Auto) 0.1 K/mcL (0.0-0.7); Eosinophils % (Auto) 1.8 % (0.0-7.0); Granulocytes % (Auto) 64.1 % (38.0-78.0); Hematocrit 38.9 % (41.0-55.0); Hemoglobin 12.4 g/dL (13.5-16.5); Lymphocytes # (Auto) 1.2 K/mcL (1.5-4.8); Lymphocytes % (Auto) 19.8 % (15.5-49.0); Mean Cell Volume 84.5 fL (80.0-100.0); Mean Corpuscular HGB Conc 31.9 g/dL (31.0-36.0); Mean Platelet Volume 7.4 fL (7.4-10.4); Monocytes # (Auto) 0.9 K/mcL (0.1-0.9); Monocytes % (Auto) 14.1 % (1.0-12.0); Platelet Count 269 K/mcL (140-440); Red Cell Distribution Width 19.2 % (11.5-14.5); WBC 6.1 K/mcL (4.5-11.0)
[2018-12-31 11:24] LABS: Creatine Kinase MB 1.2 ng/ml (0-4.9); Myoglobin < 25 ng/ml (28-72)
[2018-12-31 11:25] LABS: ALT/SGPT 13 U/l (0-40); AST/SGOT 12 U/l (0-37); Albumin 3.7 gm/dL (3.2-5.2); Albumin/Globulin Ratio 1.5 (1.0-2.3); Alkaline Phosphatase 99 U/L (39-117); Bilirubin,Total 0.3 mg/dL (0.0-1.0); Blood Urea Nitrogen 12 mg/dl (8-23); Calcium 8.4 mg/dl (8.6-10.4); Carbon Dioxide 24 mmol/L (22-30); Chloride 108 mmol/L (96-108); Creatine Kinase 46 IU/L (24-195); Globulin 2.5 gm/dL (2.2-3.7); Glomerular Filtration Rate 94; Glucose 89 mg/dL (70-105); Lipase 20 U/L (7-60); Potassium 3.9 mmol/L (3.3-5.1); Sodium 142 mmol/L (133-145)
--- NOTE | 2018-12-31 12:14 | XRay Report ---
CLINICAL INFORMATION: small stools per norm and ab pain COMPARISON: Abdomen and pelvic CT 01/22/2017 FINDINGS:: There are multiple loops of mildly dilated small bowel with air-fluid levels in the central abdomen with relative decompression of the distal small bowel and colon. No free air, soft tissue mass or organomegaly. Heart is mildly enlarged IMPRESSION: Partial small bowel obstruction versus atypical ileus Interpreted and Authenticated by: Elie Liriano 12/31/18
--- NOTE | 2018-12-31 12:29 | XRay Report ---
CLINICAL INFORMATION: SOB COMPARISON: 01/23/2017 FINDINGS: The heart is now mildly enlarged. Sternotomy/CABG changes noted. The mediastinum is normal. The pulmonary vessels are now moderately distended and there is moderate interstitial edema throughout both lungs. No infiltrates. Small bilateral pleural effusions noted. IMPRESSION: Moderate CHF Interpreted and Authenticated by: Elie Liriano 12/31/18
[2018-12-31] MEDS ORDERED: FUROSEMIDE 40 MG/4 ML VIAL IV ONE (12:57)
--- NOTE | 2018-12-31 12:59 | Emergency Department Note ---
SOB HPI <Timo Ibanez - Last Filed: 12/31/18 14:18> - General Source: patient Mode of arrival: ambulatory Limitations: no limitations - History of Present Illness MD Complaint: shortness of breath Onset (ago): day(s) (10) Severity: moderate Consistency/Duration: constant Improves with: nothing Worsens with: exertion Known history of: congestive heart failure Associated symptoms: Denies: chest pain, pain with inspiration, cough, wheezing, sputum production, lower extremity pain, polyuria, nausea/vomiting, syncope Treatment prior to arrival: none - Related Data Home oxygen amount: none <Eileen East - Last Filed: 01/06/19 13:38> - General Chief Complaint: Shortness of Breath/Dyspnea Stated Complaint: SOB x2 weeks Time Seen by Provider: 12/31/18 10:19 - History of Present Illness I reviewed this case of DEBBIE Clark. I agree with her evaluation management documentation (Timo Ibanez) 73-year-old male in ED with concerns of shortness of breath, labored breathing, stomach discomfort for the last 10 days intermittently. Patient advises he has had a quadruple bypass and injection fraction at 26-31%. He is very active in length. Also has had a cholecystectomy. Denies cough, edema, sinus congestion, runny nose, pain. Does take paresh as a probiotic, does not have to use inhalers. Patient states he has been having bowel movements but they are small and long. No changes in bladder, still has a good appetite, believes he has been having low-grade fevers with chills for over the last month. Stomach pain as intermittent cramping pressure-like. Has occurred while driving a few times to the point he has to rod puller and then it alleviates within 10 minutes. Patient states he's probably had this pain occur 30 times over the last 10 days. Patient's shortness of breath is to the point when he turns over in bed he has to take 8-10 breaths before he can breathe easier. (Eileen East) - Related Data Home Medications Medication Instructions Recorded Confirmed omeprazole 20 mg capsule,delayed 20 mg PO QDAY cap 07/09/18 12/31/18 release Acetaminophen/Diphenhydramine 1 tab PO HS PRN 12/31/18 12/31/18 [Tylenol Pm] Arginine HCl [l-Arginine] 1 tab PO DAILY 12/31/18 12/31/18 Sildenafil Citrate [Viagra] 100 mg PO PRN PRN 12/31/18 12/31/18 Previous Rx's Medication Instructions Recorded carvedilol 6.25 mg tablet 6.25 mg PO BID #180 tab 06/23/18 doxazosin 8 mg tablet 8 mg PO QDAY #90 tab 06/26/18 Ciprofloxacin [Cipro] 500 mg PO BID #40 tab 01/02/19 metroNIDAZOLE [Flagyl] 500 mg PO Q8 #60 tab 01/02/19 Acetaminophen [Tylenol] 650 mg PO Q4-6HP PRN #60 tab 01/03/19 Furosemide [Lasix] 20 mg PO Q48 #30 tab 01/03/19 Losartan [Cozaar] 25 mg PO DAILY #30 tab 01/03/19 Potassium Chloride [Kdur] 10 meq PO Q48 #30 tab 01/03/19 Allergies Allergy/AdvReac Type Severity Reaction Status Date / Time OMID Inhibitors AdvReac Mild Cough Verified 12/31/18 14:25 Mzlmzkm-Tuf-Nld Reductase AdvReac Mild hip and Verified 12/31/18 09:35 Inhibitor leg pain Review of Systems All systems ED: reviewed and negative except as stated. <Eileen East - Last Filed: 01/06/19 13:38> Past Medical History - Past Medical History Medical history: Reports: CAD (coronary artery disease), hyperlipidemia, myocardial infarction, other (history of ejection fraction 26-31% due to multiple OR's). Denies: cancer, GI bleed, thyroid disease Surgical history ED: Reports: coronary bypass (CABG), other (Had a surgical procedure on his eye with a film on the retina being done in [place]. He had a urologic procedure for urethral scarring done in 2016.) - Social History smoking status: Former smoker Alcohol use: Reports: Rarely (none for 6 months.) Drug use: Reports: none <Eileen East - Last Filed: 01/06/19 13:38> - Past Medical History [facility] Narrative: All Active Problems (Last Reviewed 10/27/17 @ 17:02 by Ac Burt MD) Sepsis (Acute) Fever of unknown origin (Acute) Facial basal cell cancer (Acute) Cardiac LV ejection fraction 21-40% (Chronic) Back pain (Chronic) Diverticulitis (Chronic) Peyronie's Disease (Chronic) History of tobacco use (Chronic) Cardiac LV ejection fraction 21-40% (Chronic) Hypertension, essential (Chronic) Acid reflux (Chronic) CAD (coronary artery disease) (Chronic) Cardiomyopathy (Chronic) Myocardial infarct, old (Chronic) Past Surgical History (Last Reviewed 10/27/17 @ 17:02 by Ac Burt MD) H/O colonoscopy (Chronic) H/O four vessel coronary artery bypass graft (Chronic) History of cholecystectomy (Chronic) Family History (Last Reviewed 10/27/17 @ 17:02 by Ac Burt MD) Father Heart attack Family/Other Heart attack (Eileen East) Physical Exam Limitations: no limitations General appearance: alert, in no apparent distress (Pt breathing is labored with deep breaths) Head: atraumatic, normocephalic, normal inspection Eye: Present: normal appearance, PERRL, EOMI. Absent: conjunctival injection ENT: normal oropharynx, mucous membranes moist, TM's normal bilaterally, normal external ear exam Neck: Present: normal inspection. Absent: tenderness, lymphadenopathy Chest: Present: normal inspection, symmetric chest wall rise. Absent: tenderness Respiratory: Present: normal lung sounds bilaterally (diminished throughout). Absent: respiratory distress, rales/crackles, wheezes, accessory muscle use Cardiovascular: Present: regular rate, normal rhythm, diastolic murmur Abdominal: Present: soft, distention, normal bowel sounds (lower quad), diminished bowel sounds (upper quad). Absent: tenderness, guarding, rebound, rigidity Extremities: Present: normal inspection. Absent: tenderness, pedal edema Back: Present: normal inspection. Absent: tenderness, CVA tenderness (R), CVA tenderness (L) Neurological: Present: alert, oriented X3, normal gait Psychiatric: Present: normal affect, normal mood. Absent: depressed, agitated, anxious, flat affect Skin: Present: warm, dry, intact, normal color. Absent: cool, diaphoretic <Eileen East - Last Filed: 01/06/19 13:38> Vital Signs Temperature 97.7 F 12/31/18 09:35 Pulse Rate 83 12/31/18 09:35 Respiratory Rate 20 12/31/18 09:35 Blood Pressure 166/102 12/31/18 09:35 Pulse Oximetry (%) 98 12/31/18 09:35 Temperature 97.5 F 01/03/19 12:24 Pulse Rate 76 01/03/19 12:24 Respiratory Rate 16 01/03/19 07:43 Blood Pressure 99/65 01/03/19 12:24 Pulse Oximetry (%) 96 01/03/19 12:24 Shortness of Breath/Dyspnea - Lab Data Result diagrams: 12/31/18 10:28 12/31/18 10:28 <Timo Ibanez - Last Filed: 12/31/18 14:18> - Lab Data Lab results reviewed: Yes I reviewed the patient's lab results. Result diagrams: 01/03/19 04:04 01/03/19 04:04 - Radiology Data Radiology results reviewed: Yes I reviewed the patient's radiology results. <Eileen East - Last Filed: 01/06/19 13:38> - [facility] Narrative Medical decision making narrative: Dr. Ibanez consulted with Dr. Freire who accepted patient. I consulted with Dr. Livingston who will follow-up on patient's small bowel obstruction. (Eileen East) - Lab Data Lab Results 12/31/18 12/31/18 12/31/18 Range/Units 10:28 10:28 10:28 WBC 6.1 (4.5-11.0) K/mcL RBC 4.60 (4.50-5.90) M/mcL Hgb 12.4 L (13.5-16.5) g/dL Hct 38.9 L (41.0-55.0) % MCV 84.5 (80.0-100.0) fL MCH 27.0 (26.0-34.0) pg MCHC 31.9 (31.0-36.0) g/dL RDW 19.2 H (11.5-14.5) % Plt Count 269 (140-440) K/mcL MPV 7.4 (7.4-10.4) fL Gran % 64.1 (38.0-78.0) % Lymph % (Auto) 19.8 (15.5-49.0) % [place] % (Auto) 14.1 H (1.0-12.0) % Eos % (Auto) 1.8 (0.0-7.0) % Baso % (Auto) 0.2 (0.0-2.0) % Gran # 3.9 (1.8-8.0) K/mcL Lymph # (Auto) 1.2 L (1.5-4.8) K/mcL [place] # (Auto) 0.9 (0.1-0.9) K/mcL Eos # (Auto) 0.1 (0.0-0.7) K/mcL Baso # (Auto) 0 (0.0-0.3) K/mcL Sodium 142 (133-145) mmol/L Potassium 3.9 (3.3-5.1) mmol/L Chloride 108 (96-108) mmol/L Carbon Dioxide 24 (22-30) mmol/L Anion Gap 10.0 (8-16) BUN 12 (8-23) mg/dl Creatinine 0.7 (0.7-1.2) mg/dl GFR Calculation 94 Glucose 89 (70-105) mg/dL Calcium 8.4 L (8.6-10.4) mg/dl Total Bilirubin 0.3 (0.0-1.0) mg/dL AST 12 (0-37) U/l ALT 13 (0-40) U/l Alkaline Phosphatase 99 (39-117) U/L Total Creatine Kinase 46 (24-195) IU/L CK-MB (CK-2) 1.2 (0-4.9) ng/ml Myoglobin < 25 L (28-72) ng/ml Troponin T < 0.01 (0-0.03) ng/ml NT-Pro-B Natriuret Pep (0-125) pg/ml Total Protein 6.2 (5.9-8.4) gm/dL Albumin 3.7 (3.2-5.2) gm/dL Globulin 2.5 (2.2-3.7) gm/dL Albumin/Globulin Ratio 1.5 (1.0-2.3) Lipase 20 (7-60) U/L 12/31/18 Range/Units 10:28 WBC (4.5-11.0) K/mcL RBC (4.50-5.90) M/mcL Hgb (13.5-16.5) g/dL Hct (41.0-55.0) % MCV (80.0-100.0) fL MCH (26.0-34.0) pg MCHC (31.0-36.0) g/dL RDW (11.5-14.5) % Plt Count (140-440) K/mcL MPV (7.4-10.4) fL Gran % (38.0-78.0) % Lymph % (Auto) (15.5-49.0) % [place] % (Auto) (1.0-12.0) % Eos % (Auto) (0.0-7.0) % Baso % (Auto) (0.0-2.0) % Gran # (1.8-8.0) K/mcL Lymph # (Auto) (1.5-4.8) K/mcL [place] # (Auto) (0.1-0.9) K/mcL Eos # (Auto) (0.0-0.7) K/mcL Baso # (Auto) (0.0-0.3) K/mcL Sodium (133-145) mmol/L Potassium (3.3-5.1) mmol/L Chloride (96-108) mmol/L Carbon Dioxide (22-30) mmol/L Anion Gap (8-16) BUN (8-23) mg/dl Creatinine (0.7-1.2) mg/dl GFR Calculation Glucose (70-105) mg/dL Calcium (8.6-10.4) mg/dl Total Bilirubin (0.0-1.0) mg/dL AST (0-37) U/l ALT (0-40) U/l Alkaline Phosphatase (39-117) U/L Total Creatine Kinase (24-195) IU/L CK-MB (CK-2) (0-4.9) ng/ml Myoglobin (28-72) ng/ml Troponin T (0-0.03) ng/ml NT-Pro-B Natriuret Pep 2760.0 H (0-125) pg/ml Total Protein (5.9-8.4) gm/dL Albumin (3.2-5.2) gm/dL Globulin (2.2-3.7) gm/dL Albumin/Globulin Ratio (1.0-2.3) Lipase (7-60) U/L - Radiology Data Abdominal x-ray: CLINICAL INFORMATION: small stools per norm and ab pain COMPARISON: Abdomen and pelvic CT 01/22/2017 FINDINGS:: There are multiple loops of mildly dilated small bowel with air-fluid levels in the central abdomen with relative decompression of the distal small bowel and colon. No free air, soft tissue mass or organomegaly. Heart is mildly enlarged IMPRESSION: Partial small bowel obstruction versus atypical ileus Interpreted and Authenticated by: Elie Liriano 12/31/18 Chest x-ray: CLINICAL INFORMATION: SOB COMPARISON: 01/23/2017 FINDINGS: The heart is now mildly enlarged. Sternotomy/CABG changes noted. The mediastinum is normal. The pulmonary vessels are now moderately distended and there is moderate interstitial edema throughout both lungs. No infiltrates. Small bilateral pleural effusions noted. IMPRESSION: Moderate CHF Interpreted and Authenticated by: Elie Liriano 12/31/18 (Eileen East) Disposition Pt seen by LAW TUTOR/PA only: No <Timo Ibanez - Last Filed: 12/31/18 14:18> Pt seen by LAW TUTOR/PA only: No (Shamar) Time of Disposition: 13:38 <Eileen East - Last Filed: 01/06/19 13:38> Clinical Impression: Small bowel obstruction CHF (congestive heart failure) Qualifiers: Heart failure type: diastolic Heart failure chronicity: chronic Qualified Code(s): I50.32 - Chronic diastolic (congestive) heart failure Summary: Patient was worked up as noted above. I discussed patient management with DEBBIE Clark. After getting his results back I discussed the case with Dr. Morris, the hospitalist (not Dr. Freire) who agreed to admit the patient for CHF. Eileen contacted Dr. Livingston, general surgeon for care regarding small bowel obstruction versus ileus. (Timo Ibanez) Disposition: Xfer As Inpt ([facility]) Condition: Fair
--- NOTE | 2018-12-31 13:21 | Internal Med History&Physical ---
Medical - H&P: [facility] Patient information: Note initiated : 12/31/18 at 1:21 pm Service Date, if different from initiated Date: [] Patient: Jacquelin Red 73 y/o M admitted on for SOB x2 weeks. Chief Complaint: [] Chief complaint: abdominal cramping/shortness of breath History of present illness: Mr. Red is a 73 year old M with a history of NYHA class III systolic heart failure with EF 25-30% to presents to the ER with worsening shortness of breath that has evolved over the last few days. Patient has associated intermittent abdominal cramping and comes in waves. Pain is without radiation . Patient has not had a normal bowel movement over the last few days. He feels his abdominal is more bloated. Initial workup in the ER was consistent with small bowel obstruction/congestive heart failure. Patient was started on diuretics. Surgery was consulted and hospitalist service was requested for admission At the time of evaluation patient is accompanied with his daughter. He was able to answer most questions endorse a history as above. He does have degenerative joint disease and has been taking Aleve 1-2 pills every day. He denies sdnr-[id number]-[id number] medications or excessive salt diet. Denies weight gain or weight loss, lightheadedness, chest pain. Review of systems A 10 point review of system was performed and is negative except as discussed above Medical - H&P: PMH Medical history: History of tobacco use (Chronic) Cardiac LV ejection fraction 21-30% (Chronic) Hypertension, essential (Chronic) Acid reflux (Chronic) CAD (coronary artery disease) (Chronic) Cardiomyopathy (Chronic) Myocardial infarct, old (Chronic) Surgical History H/O colonoscopy (Chronic) 2014 MI - polyps 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 History of cholecystectomy (Chronic) 07/2014 Family History Father Heart attack Family/Other Heart attack Uncles Social History marital status: single smoking status: Former smoker alcohol intake frequency: a few times a month substance use type: does not use Follows up with Dr. Ac rodriguez Medical - H&P: Meds Home Medications Medication Instructions Recorded Confirmed Type carvedilol 6.25 mg tablet 6.25 mg PO BID #180 tab 06/23/18 12/31/18 Rx doxazosin 8 mg tablet 8 mg PO QDAY #90 tab 06/26/18 12/31/18 Rx omeprazole 20 mg capsule,delayed 20 mg PO QDAY cap 07/09/18 12/31/18 History release Acetaminophen/Diphenhydramine 1 tab PO HS PRN 12/31/18 12/31/18 History [Tylenol Pm] Arginine HCl [l-Arginine] 1 tab PO DAILY 12/31/18 12/31/18 History Naproxen [EC-Naprosyn] 2 tab PO BID PRN 12/31/18 12/31/18 History Sildenafil Citrate [Viagra] 100 mg PO PRN PRN 12/31/18 12/31/18 History Allergies Allergy/AdvReac Type Severity Reaction Status Date / Time OMDI Inhibitors AdvReac Mild Cough Verified 12/31/18 14:25 Gjssrhl-Vwy-Vux Reductase AdvReac Mild hip and Verified 12/31/18 09:35 Inhibitor leg pain Medical - H&P: Exam - Constitutional Vitals: Temp Pulse Resp BP Pulse Ox 97.7 F 85 16 150/86 96 12/31/18 09:35 12/31/18 13:09 12/31/18 13:09 12/31/18 13:09 12/31/18 13:09 General appearance: no acute distress Exam: Alert and oriented No scleral icterus Oral cavity dry Head normocephalic No ear discharge no Lymphadenopathy S1 and S2 regular rhythm, ESM grade 1 Abdomen soft nontender Diminished breath sounds bases with late inspiratory crackles Normal range of motion of the joints. No joint swelling or erythema Skin no suspicious lesion Psych alert cooperative Neuro nonfocal Medical - H&P: Reslt - Labs CBC & Chem 7: 12/31/18 10:28 12/31/18 10:28 Labs: Short CBC 12/31/18 Range/Units 10:28 WBC 6.1 (4.5-11.0) K/mcL Hgb 12.4 L (13.5-16.5) g/dL Hct 38.9 L (41.0-55.0) % Plt Count 269 (140-440) K/mcL BMP 12/31/18 10:28 Sodium 142 Potassium 3.9 Chloride 108 Carbon Dioxide 24 BUN 12 Creatinine 0.7 Glucose 89 Calcium 8.4 L Cardiac Enzymes 12/31/18 12/31/18 Range/Units 10:28 10:28 Total Creatine Kinase 46 (24-195) IU/L CK-MB (CK-2) 1.2 (0-4.9) ng/ml Troponin T < 0.01 (0-0.03) ng/ml Liver Function 12/31/18 Range/Units 10:28 Total Bilirubin 0.3 (0.0-1.0) mg/dL AST 12 (0-37) U/l ALT 13 (0-40) U/l Alkaline Phosphatase 99 (39-117) U/L Albumin 3.7 (3.2-5.2) gm/dL Medical - H&P: A/P (1) Heart failure, systolic, with acute decompensation Current visit: Yes Status: Acute * Acute decompensated heart failure systolic-last EF 25%. Continue diuresis/resume home medication including beta yoan * Small bowel obstruction-surgery consult/NG decompression/NPO/bowel rest/crystalloids * History of hypertension restart doxazosin/Coreg once able to take orally * Full code * Prophylaxis heparin Plan * Inpatient admission * Surgery consult * NG decompression/crystalloids * Diuresis
[2018-12-31] MEDS ORDERED: ACETAMINOPHEN 325 MG TABLET PO PRN (14:23)
[2018-12-31] MEDS ORDERED: POTASSIUM CHLORIDE 40 MEQ in DEXTROSE 5% IN WATER 500 ML IV PRN (14:23)
[2018-12-31] MEDS ORDERED: MAGNESIUM SULFATE 2 GM/50 ML BAG IV PRN (14:23)
[2018-12-31] MEDS ORDERED: ONDANSETRON 4 MG/2 ML VIAL IV PRN (14:23)
[2018-12-31] MEDS: 0.9 % SODIUM CHLORIDE 10 ML SYRINGE IV SCH ×3 (14:40→21:14)
[2018-12-31] MEDS ORDERED: BENZOCAINE 1 SPRAY BOTTLE TOPICAL PRN (16:00)
--- NOTE | 2018-12-31 16:37 | XRay Report ---
CLINICAL INFORMATION: NGT placement COMPARISON: None. FINDINGS: NG tube overlies the GE junction. The stomach and multiple loops of small bowel are mildly dilated with relative decompression of the distal ileum and colon. No free air. IMPRESSION: NG tube overlying the gastric fundus. ICU nurses were instructed to advance the tube 9 cm Distal partial small bowel obstruction pattern Interpreted and Authenticated by: Elie Liriano 12/31/18
[2018-12-31] MEDS: FUROSEMIDE 40 MG/4 ML VIAL IV SCH (17:01)
--- NOTE | 2018-12-31 18:40 | General Surgery Consult Note ---
History of Present Illness Patient information: Note initiated : 12/31/18 at 6:36 pm Service Date, if different from initiated Date: [] Patient: Jacquelin Red 73 y/o M admitted on 12/31/18 for SOB x2 weeks. Chief Complaint: [] Reason for consult: abdominal pain Requesting physician: Ham Canas History of present illness: 73-year-old male admitted with mild congestive heart failure with a history of crampy abdominal pain and change in bowel habits over the past 10 days. The patient states that over the past 10 days. He's had severe crampy abdominal pain which usually lasts up to 10 minutes and then slowly resolves. He has these episodes 3-4 times a day. His noted that his bowel movements were relatively regular until 4 days ago but since that time he started having stringy bowel movements. He is having regular passage of flatus. The patient also noted that he was having increasing abdominal distention with worsening shortness of breath. He does not describe any peripheral edema. He has a history of cardiomyopathy with his last measured ejection fraction being 30%. However, this was in 2015. The patient has a history of diverticulitis with septicemia, which occurred in January 2017. He however ever has completed a normal colonoscopy in November 2007 and in the note. That's available, it states that there was a few scattered diverticuli and he had small polyps which were removed. He has not had rectal bleeding. His abdominal x-rays are more suggestive of adynamic ileus, accompanied with constipation. He does not have an obstructive pattern. Since he has not had a CT of the abdomen since 2017 ,. He will have one ordered. Review of Systems - Constitutional malaise - EENT Nose, mouth and throat: no disequilibrium, no epistaxis - Cardiovascular dyspnea on exertion, no chest pain at rest, no diaphoresis, no paroxysmal nocturnal dyspnea, no pedal edema, no syncope - Respiratory dyspnea on exertion, other (shortness of breath) - Gastrointestinal abdominal pain, bloating, change in bowel habits, constipation - Genitourinary nocturia, no difficulty urinating, no dysuria - Musculoskeletal no arthralgias, no numbness, no stiffness - Integumentary no new lesions, no non-healing lesions, no pruritus, no rash - Neurological no confusion, no dizziness, no memory loss, no syncope, no tremor(s) - Psychiatric no anxiety, no confusion, no depression - Endocrine no fatigue, no palpitations, no polydipsia, no polyphagia, no polyuria - Hematologic/Lymphatic no easy bleeding, no easy bruising, no lymphadenopathy - Allergic/Immunologic no tongue swelling, no throat swelling, no uticaria, no wheezing, no lip swelling Past History Past medical history: Hypertension. Gastroesophageal reflux disease. Coronary artery disease with cardiomyopathy, status post myocardial infarction, status post four-vessel coronary artery bypass graft 2009; most recent ejection fraction 30%. History of diverticulitis Past surgical history: Four-vessel coronary artery bypass graft 2010 Cholecystectomy Past family history: Coronary artery disease Past social history: Former smoker. Occasional alcohol Denies drug use Medications and Allergies Home Medications Medication Instructions Recorded Confirmed Type carvedilol 6.25 mg tablet 6.25 mg PO BID #180 tab 06/23/18 12/31/18 Rx doxazosin 8 mg tablet 8 mg PO QDAY #90 tab 06/26/18 12/31/18 Rx omeprazole 20 mg capsule,delayed 20 mg PO QDAY cap 07/09/18 12/31/18 History release Acetaminophen/Diphenhydramine 1 tab PO HS PRN 12/31/18 12/31/18 History [Tylenol Pm] Arginine HCl [l-Arginine] 1 tab PO DAILY 12/31/18 12/31/18 History Naproxen [EC-Naprosyn] 2 tab PO BID PRN 12/31/18 12/31/18 History Sildenafil Citrate [Viagra] 100 mg PO PRN PRN 12/31/18 12/31/18 History Allergies Allergy/AdvReac Type Severity Reaction Status Date / Time OMID Inhibitors AdvReac Mild Cough Verified 12/31/18 14:25 Lcdcheo-Ldm-Apn Reductase AdvReac Mild hip and Verified 12/31/18 09:35 Inhibitor leg pain Exam Temp Pulse Resp BP Pulse Ox 98.2 F 65 20 130/89 98 12/31/18 14:30 12/31/18 14:03 12/31/18 14:30 12/31/18 14:32 12/31/18 14:30 - General physical appearance well developed, well nourished, no distress - Eyes PERRL, normal ocular movement. negative: icteric - ENT normal pinna, normal nares, normal mucosa, no hearing loss, no congestion - Head Head exam IM: Present: atraumatic, normocephalic - Neck no masses, no bruits, trachea midline, no lymphadenopathy, no venous distension - Cardiovascular Cardiovascular exam IM: Present: normal rate and rhythm - Respiratory normal expansion, normal respiratory effort, clear to percussion, clear to auscultation - Abdomen Abdomen: Present: soft, non tender (no tenderness to deep palpation throughout. Abdomen), bowel sounds. Absent: masses, guarding, distended Hernia: Present: none - Genitourinary Present: normal penis with no external lesions - Integumentary Present: no rash, no growths, no abnormal pigmentation - Neurologic Present: normal coordination, normal sensation - Musculoskeletal Present: normal gait, normal posture - Psychiatric Present: oriented to time, oriented to person, oriented to place, speech is normal, memory intact Results - Labs 12/31/18 10:28 12/31/18 10:28 Abnormal lab results 12/31/18 12/31/18 12/31/18 Range/Units 10:28 10:28 10:28 Hgb 12.4 L (13.5-16.5) g/dL Hct 38.9 L (41.0-55.0) % RDW 19.2 H (11.5-14.5) % [place] % (Auto) 14.1 H (1.0-12.0) % Lymph # (Auto) 1.2 L (1.5-4.8) K/mcL Calcium 8.4 L (8.6-10.4) mg/dl Myoglobin < 25 L (28-72) ng/ml NT-Pro-B Natriuret Pep 2760.0 H (0-125) pg/ml Diabetes panel 12/31/18 Range/Units 10:28 Sodium 142 (133-145) mmol/L Potassium 3.9 (3.3-5.1) mmol/L Chloride 108 (96-108) mmol/L Carbon Dioxide 24 (22-30) mmol/L BUN 12 (8-23) mg/dl Creatinine 0.7 (0.7-1.2) mg/dl Glucose 89 (70-105) mg/dL Calcium 8.4 L (8.6-10.4) mg/dl AST 12 (0-37) U/l ALT 13 (0-40) U/l Alkaline Phosphatase 99 (39-117) U/L Total Protein 6.2 (5.9-8.4) gm/dL Albumin 3.7 (3.2-5.2) gm/dL Calcium panel 12/31/18 Range/Units 10:28 Calcium 8.4 L (8.6-10.4) mg/dl Albumin 3.7 (3.2-5.2) gm/dL Pituitary panel 12/31/18 Range/Units 10:28 Sodium 142 (133-145) mmol/L Potassium 3.9 (3.3-5.1) mmol/L Chloride 108 (96-108) mmol/L Carbon Dioxide 24 (22-30) mmol/L BUN 12 (8-23) mg/dl Creatinine 0.7 (0.7-1.2) mg/dl Glucose 89 (70-105) mg/dL Calcium 8.4 L (8.6-10.4) mg/dl Adrenal panel 12/31/18 Range/Units 10:28 Sodium 142 (133-145) mmol/L Potassium 3.9 (3.3-5.1) mmol/L Chloride 108 (96-108) mmol/L Carbon Dioxide 24 (22-30) mmol/L BUN 12 (8-23) mg/dl Creatinine 0.7 (0.7-1.2) mg/dl Glucose 89 (70-105) mg/dL Calcium 8.4 L (8.6-10.4) mg/dl Total Bilirubin 0.3 (0.0-1.0) mg/dL AST 12 (0-37) U/l ALT 13 (0-40) U/l Alkaline Phosphatase 99 (39-117) U/L Total Protein 6.2 (5.9-8.4) gm/dL Albumin 3.7 (3.2-5.2) gm/dL All other labs normal. Assessment and Plan (1) Cardiomyopathy as manifestation of underlying disease Status: Acute (2) Hypertension, essential Status: Chronic (3) Constipation by delayed colonic transit Status: Acute (4) Adynamic ileus CT of abdomen with oral and IV contrast. Follow-up abdominal x-rays in the morning. If patient has a bowel movement. , The nasogastric tube may be removed Status: Acute
[2018-12-31] MEDS: DOCUSATE SODIUM 100 MG CAPSULE PO SCH (21:13)
[2018-12-31] MEDS: SENNOSIDES/DOCUSATE SODIUM 1 TAB TABLET PO SCH (21:13)
[2018-12-31] MEDS: HEPARIN 5,000 UNIT/ML VIAL SQ SCH (21:14)
[2018-12-31] MEDS ORDERED: IOPAMIDOL 100 ML BOTTLE IV ONE (22:10)
--- NOTE | 2019-01-01 05:09 | Cat Scan Report ---
CLINICAL INFORMATION: Abdominal pain with history of bowel obstruction COMPARISON: Abdomen pelvic CT 01/22/2017. TECHNIQUE: Following enteric contrast, 80 cc of Isovue-300 were injected intravenously, and 60 seconds later, 0.625 mm helical slices were obtained from the mid heart through the subtrochanteric regions. Following reconstruction, 2.5 mm sagittal, coronal and axial reformatted images were processed and reviewed at bone, lung and soft tissue windows. Five minutes later, 0.625 mm helical slices were obtained from the mid heart through the kidneys and viewed at soft tissue windows.The exam was performed using radiation dose optimization techniques including, but not limited to, automated exposure control, adjustment of the mA and/or kV according to patient size and use of iterative reconstruction technique. FINDINGS: Small bilateral pleural effusions and subsegmental atelectasis in both posterior lower lobes are appreciated. The visualized heart is mildly enlarged - increased from prior study. Images through the abdomen show small cysts scattered throughout the hepatic parenchyma which range up to 20 mm in the right hepatic lobe. They're unchanged from the CT two years ago. The gallbladder is surgically absent. The common bile duct is moderately dilated and has increased from 14 to [address] two years prior. It tapers abruptly in the ampullary region. Pancreatic duct is also mildly dilated with diameter 3 mm. There is a moderate (4.3 cm) diverticulum arising from the transverse duodenal segment which extrinsically compresses the inferior pancreatic head. It may be etiologic in biliary and pancreatic duct obstruction. No stone, mass or other alternative cause for duct obstruction is evident. The pancreas is, otherwise, normal. Both adrenal glands, spleen and kidneys are normal. The aorta is normal in contour and caliber with moderately heavy calcification fibrofatty plaque. Celiac, SMA, GRISEL, renal and iliac arteries are widely patent. Images of the pelvis show prostate mildly enlarged but unchanged from previous study. Seminal vesicles and urinary bladder are normal. Severe diverticulitis involving a 12 cm segment of mid sigmoid colon features marked colonic wall thickening, scattered diverticuli and surrounding phlegmon. A similar pattern was noted on CT two years prior but the vogt become more thickened on today's exam.. The remainder of the colon, appendix, remaining small bowel and stomach grossly normal. Bone windows show no osseous abnormality IMPRESSION: 1. Severe diverticulitis involving a 12 cm segment of mid sigmoid colon including a 5 cm inflamed giant diverticulum. Similar pattern was seen two years prior, but degree of inflammation has increased. No abscess or fistula. 2. Moderate dilatation of the common bile and mild dilatation of pancreatic duct with abrupt tapering in the ampullary region. There is no stone or mass in the ampullary region. 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 If clinically indicated, consider either MRCP or GI referral for standard ERCP 3. Mild cardiomegaly and small bilateral pleural effusions - new from prior CT. Moderate CHF seen on accompanying chest x-ray Interpreted and Authenticated by: Elie Liriano 01/01/19
[2019-01-01 06:45] LABS: Hematocrit 40.5 % (41.0-55.0); Hemoglobin 12.9 g/dL (13.5-16.5); Mean Cell Volume 84.6 fL (80.0-100.0); Mean Corpuscular HGB Conc 31.8 g/dL (31.0-36.0); Mean Platelet Volume 7.8 fL (7.4-10.4); Platelet Count 276 K/mcL (140-440); RBC 4.79 M/mcL (4.50-5.90); Red Cell Distribution Width 19.3 % (11.5-14.5); WBC 6.1 K/mcL (4.5-11.0)
[2019-01-01 07:03] LABS: ALT/SGPT 18 U/l (0-40); AST/SGOT 17 U/l (0-37); Albumin 3.7 gm/dL (3.2-5.2); Albumin/Globulin Ratio 1.3 (1.0-2.3); Alkaline Phosphatase 96 U/L (39-117); Bilirubin,Direct < 0.2 mg/dL (0.0-0.3); Bilirubin,Total 0.7 mg/dL (0.0-1.0); Blood Urea Nitrogen 12 mg/dl (8-23); Calcium 8.6 mg/dl (8.6-10.4); Carbon Dioxide 26 mmol/L (22-30); Chloride 101 mmol/L (96-108); Gamma Glutamyl Transpeptidase 45 U/L (8-61); Globulin 2.8 gm/dL (2.2-3.7); Glomerular Filtration Rate 89; Glucose 77 mg/dL (70-105); Lactate Dehydrogenase 169 U/L (94-250); Magnesium 2.1 mg/dL (1.6-2.5); Potassium 3.5 mmol/L (3.3-5.1); Sodium 142 mmol/L (133-145); Triglycerides 121 mg/dl (<150)
[2019-01-01 08:10] LABS: Anisocytosis 1+ (NONE SEEN); Eosinophils % (Manual) 1 % (0-7); Lymphocytes % 24 % (15-49); Monocytes % (Manual) 9 % (1-12); Platelet Estimate NORMAL (NORMAL); Polychromasia 1+ (NONE SEEN); RBC Morphology ABNORM (NORMAL); Segmented Neutrophils % 66 % (38-78)
[2019-01-01] MEDS: PIPERACILLIN SODIUM/TAZOBACTAM 3.375 GM in DEXTROSE 5% IN WATER 50 ML IV SCH ×3 (08:17→17:24)
[2019-01-01] MEDS: MULTIVIT,THER IRON,CA,FA & MIN 1 TABLET PO SCH (08:17)
[2019-01-01] MEDS: DOCUSATE SODIUM 100 MG CAPSULE PO SCH ×2 (08:17→21:40)
[2019-01-01] MEDS: 0.9 % SODIUM CHLORIDE 10 ML SYRINGE IV SCH ×3 (08:17→21:38)
[2019-01-01] MEDS: PANTOPRAZOLE 40 MG VIAL IV SCH ×2 (08:17→17:24)
[2019-01-01] MEDS: HEPARIN 5,000 UNIT/ML VIAL SQ SCH ×2 (08:17→21:38)
[2019-01-01] MEDS: FUROSEMIDE 40 MG/4 ML VIAL IV SCH ×2 (08:17→15:58)
[2019-01-01 08:55] LABS: Carcinoembryonic Antigen 2.3 ng/mL (0.0-3.4)
[2019-01-01] MEDS ORDERED: NON FORMULARY MEDICATION 1 DOSE MISCELL (Sildenafil Citrate [Viagra] 100 MG) PO PRN (10:33)
[2019-01-01] MEDS ORDERED: hydrALAZINE 20 MG/ML VIAL IV PRN (10:47)
--- NOTE | 2019-01-01 10:48 | Internal Med Progress Note ---
Medical - PN: Subj Patient information: Note initiated : 01/01/19 at 10:44 am Service Date, if different from initiated Date: [] Patient: Jacquelin Red 73 y/o M admitted on 12/31/18 for SOB x2 weeks. Chief Complaint: [] Interval history: Mr. Red is a 73 year old M with a history of NYHA class III systolic heart failure with EF 25-30% to presents to the ER with worsening shortness of breath that has evolved over the last few days. Patient has associated intermittent abdominal cramping and comes in waves. Pain is without radiation . Patient has not had a normal bowel movement over the last few days. He feels his abdominal is more bloated. Initial workup in the ER was consistent with small bowel obstruction/congestive heart failure. Patient was started on diuretics. Surgery was consulted and [facility] pitalist service was requested for admission At the time of evaluation patient is accompanied with his daughter. He was able to answer most questions endorse a history as above. He does have degenerative joint disease and has been taking Aleve 1-2 pills every day. He denies qxmr-dji-ncbunoa medications or excessive salt diet. Denies weight gain or weight loss, lightheadedness, chest pain. 01/01-patient undergoing CT abdomen with oral IV contrast. Surgery on board. Currently NG tube decompression and bowel rest. I's and white count stable. No overnight events including fever chills or worsening abdominal pain. No concerns per staff. - Constitutional Vitals: Vital Signs Temp Pulse Resp BP Pulse Ox 98.4 F 81 16 159/89 95 01/01/19 08:00 12/31/18 23:10 01/01/19 08:00 01/01/19 08:00 01/01/19 08:00 Period Temp Pulse Resp BP Sys/Shrestha Pulse Ox Last 24 Hr 97.2 F-99.1 F 31-86 16-20 130-176/58-111 87-99 Intake and Output 12/31/18 01/01/19 01/01/19 21:59 05:59 13:59 Intake Total 1000 1200 Output Total 2625 350 700 Balance -1625 -350 500 Weight 174 lb 12.8 oz Intake & Output: Intake & Output 12/31/18 01/01/19 01/01/19 21:59 05:59 13:59 Intake Total 1000 1200 Output Total 2625 350 700 Balance -1625 -350 500 Weight 174 lb 12.8 oz Intake: Oral 1200 Other 1000 Output: Gastric Drainage 250 350 Left Nare NG/OG 250 350 Void Amount 2375 700 Other: Meal Breakfast Percent of Meal Consumed 100% Feeding Ability Assist with Tray Set Up Urine Appearance Clear Urine Color Straw Light Sabine Urine Odor Normal Normal Stool Size Small General appearance: no acute distress Exam: NG tube nondistended nontender abdomen No anxiety No Lymphedema Medical - PN: Obj Da - Labs CBC & Chem 7: 01/01/19 03:47 01/01/19 03:47 Labs: Abnormal Lab Results 01/01/19 01/01/19 12/31/18 07:38 03:47 10:28 Hgb 12.9 L Hct 40.5 L RDW 19.3 H [place] % (Auto) Lymph # (Auto) RBC Morphology Abnorm A Polychromasia 1+ A Anisocytosis 1+ A ESR 18 H Calcium Myoglobin NT-Pro-B Natriuret Pep 2760.0 H 12/31/18 12/31/18 10:28 10:28 Hgb 12.4 L Hct 38.9 L RDW 19.2 H [place] % (Auto) 14.1 H Lymph # (Auto) 1.2 L RBC Morphology Polychromasia Anisocytosis ESR Calcium 8.4 L Myoglobin < 25 L NT-Pro-B Natriuret Pep Meds: Medications Acetaminophen (Tylenol) 650 mg PO Q4-6HP PRN PRN Reason: PAIN/FEVER > 101 Benzocaine (Cetacaine) 1 spray TOPICAL PRN PRN PRN Reason: Sore Throat Carvedilol (Coreg) 6.25 mg PO BIDCC [facility] Docusate Sodium (Colace) 100 mg PO BID [facility] Last Admin: 01/01/19 08:17 Dose: 100 mg Documented by: Doxazosin Mesylate (Cardura) 8 mg PO HS [facility] Furosemide (Lasix) 40 mg IV BIDD [facility] Last Admin: 01/01/19 08:17 Dose: 40 mg Documented by: Heparin Sodium (Porcine) (Heparin) 5,000 unit SQ Q12 [facility] Last Admin: 01/01/19 08:17 Dose: 5,000 unit Documented by: Potassium Chloride 40 meq/ (Dextrose) 520 mls @ 130 mls/hr IV UD PRN PRN Reason: K+ = or < 3.5 Magnesium Sulfate (Magnesium Sulfate) 2 gm in 50 mls @ 50 mls/hr IV UD PRN PRN Reason: MG = or < 1.7 Piperacillin Sod/Tazobactam (Sod 3.375 gm/ Dextrose) 50 mls @ 100 mls/hr IV Q6H [facility]; Protocol Last Admin: 01/01/19 08:17 Dose: 100 mls/hr Documented by: Iron Carb/Multivit/[place]/Folic Acid (Multivitamin W/Minerals) 1 tab PO DAILY [facility] Last Admin: 01/01/19 08:17 Dose: 1 tab Documented by: Omeprazole (Prilosec) 20 mg PO QAMAC [facility] Ondansetron HCl (Zofran) 4 mg IV Q4-6HP PRN PRN Reason: Nausea And Vomiting Pantoprazole Sodium (Protonix) 40 mg IV BIDAC [facility] Last Admin: 01/01/19 08:17 Dose: 40 mg Documented by: Senna/Docusate Sodium (Senna Plus Tablet) 1 tab PO HS [facility] Last Admin: 12/31/18 21:13 Dose: Not Given Documented by: Sodium Chloride (Saline Flush) 10 ml IV Q8 [facility] Last Admin: 01/01/19 08:17 Dose: 10 ml Documented by: Medical - PN: A/P - Time Spent With Patient Total time spent is greater than 50% in coordination of care (as documented) at patient's floor/unit and/or counseling patient: 25 - 35 minutes (1) Heart failure, systolic, with acute decompensation Status: Acute Assessment and plan: * Acute decompensated heart failure systolic-last EF 25-30%. Continue diuresis/currently nothing by mouth. Restart home meds once NG discontinued and small bowel obstruction resolved * Acute colitis -surgery consulted, await CT abdomen with and without contrast. Antibiotics started by surgery * History of hypertension -oral meds held. Use when necessary hydralazine * Full code * Prophylaxis heparin Plan * Acute diverticulitis management per surgery * Hydralazine IV when necessary * Crystalloids/bowel rest Current Visit: Yes Medical - PN: Qual - VTE Deep Vein Thrombosis/Pulmonary Embolism Present on Admission: No
[2019-01-01] MEDS: CARVEDILOL 6.25 MG TABLET PO SCH ×2 (12:12→19:01)
--- NOTE | 2019-01-01 13:50 | General Surgery Progress Note ---
Subjective Patient reports: feels better, pain is less, tolerating liquids well, flatus, bowel movement, afebrile Narrative: Note initiated : 01/01/19 at 1:48 pm Service Date, if different from initiated Date: [] Patient: Jacquelin Red 73 y/o M admitted on 12/31/18 for SOB x2 weeks. Chief Complaint: [patient feels better overall. Shortness of breath significantly improved. He denies having any abdominal pain. He had flatus and multiple small bowel movements LAST EVENING. He denies nausea. CT of the abdomen shows a 12 cm segment of distal sigmoid colon inflammation compatible with diverticulitis. He however continues to be relatively asymptomatic and denies having any left lower quadrant discomfort. White blood count 6.1, hemoglobin 12.9, sedimentation rate 18, CEA 2.3, and patient Aries, totally n ormal] Objective Temp Pulse Resp BP Pulse Ox 98.3 F 81 16 148/79 93 01/01/19 11:52 12/31/18 23:10 01/01/19 11:52 01/01/19 11:52 01/01/19 11:52 - Additional Data Intake & Output - Last 24 hours: Intake & Output 12/30/18 12/31/18 01/01/19 01/02/19 05:59 05:59 05:59 05:59 Intake Total 1000 1300 Output Total 3675 700 Balance -2675 600 Weight 174 lb 12.8 oz - General physical appearance well developed, well nourished, no distress - Eyes PERRL, normal ocular movement - ENT normal pinna, normal nares, normal mucosa, no hearing loss, no congestion - Neck no masses, no bruits, trachea midline, no lymphadenopathy, no venous distension - Respiratory normal expansion, normal respiratory effort, clear to auscultation - Cardiovascular Cardiovascular exam: Present: normal rate and rhythm, +S1, +S2. Absent: JVD, systolic murmur - Abdomen non tender (no abdominal tenderness noted; good active bowel sounds; no mass noted), bowel sounds (present), surgical scars (none), masses (none) - Integumentary no rash, no growths, no abnormal pigmentation - Neurologic normal coordination, normal sensation - Musculoskeletal normal gait, normal posture - Psychiatric oriented to time, oriented to person, oriented to place, speech is normal, memory intact - Labs 01/01/19 03:47 01/01/19 03:47 Diabetes panel 01/01/19 Range/Units 03:47 Sodium 142 (133-145) mmol/L Potassium 3.5 (3.3-5.1) mmol/L Chloride 101 (96-108) mmol/L Carbon Dioxide 26 (22-30) mmol/L BUN 12 (8-23) mg/dl Creatinine 0.8 (0.7-1.2) mg/dl Glucose 77 (70-105) mg/dL Calcium 8.6 (8.6-10.4) mg/dl AST 17 (0-37) U/l ALT 18 (0-40) U/l Alkaline Phosphatase 96 (39-117) U/L Total Protein 6.5 (5.9-8.4) gm/dL Albumin 3.7 (3.2-5.2) gm/dL Triglycerides 121 (<150) mg/dl Calcium panel 01/01/19 Range/Units 03:47 Calcium 8.6 (8.6-10.4) mg/dl Phosphorus 4.0 (2.7-4.5) mg/dL Albumin 3.7 (3.2-5.2) gm/dL Pituitary panel 01/01/19 Range/Units 03:47 Sodium 142 (133-145) mmol/L Potassium 3.5 (3.3-5.1) mmol/L Chloride 101 (96-108) mmol/L Carbon Dioxide 26 (22-30) mmol/L BUN 12 (8-23) mg/dl Creatinine 0.8 (0.7-1.2) mg/dl Glucose 77 (70-105) mg/dL Calcium 8.6 (8.6-10.4) mg/dl Adrenal panel 01/01/19 Range/Units 03:47 Sodium 142 (133-145) mmol/L Potassium 3.5 (3.3-5.1) mmol/L Chloride 101 (96-108) mmol/L Carbon Dioxide 26 (22-30) mmol/L BUN 12 (8-23) mg/dl Creatinine 0.8 (0.7-1.2) mg/dl Glucose 77 (70-105) mg/dL Calcium 8.6 (8.6-10.4) mg/dl Total Bilirubin 0.7 (0.0-1.0) mg/dL AST 17 (0-37) U/l ALT 18 (0-40) U/l Alkaline Phosphatase 96 (39-117) U/L Total Protein 6.5 (5.9-8.4) gm/dL Albumin 3.7 (3.2-5.2) gm/dL Assessment and Plan (1) Cardiomyopathy as manifestation of underlying disease Status: Acute Assessment and plan: Patient is asymptomatic at this time. Echocardiogram results are pending Current Visit: Yes (2) Hypertension, essential Status: Chronic Current Visit: No (3) Constipation by delayed colonic transit Status: Acute Current Visit: Yes (4) Adynamic ileus Status: Acute Current Visit: Yes (5) Diverticulitis of sigmoid colon Status: Acute Assessment and plan: Started on Zosyn every 6 hours Advanced to clear liquid diet Current Visit: Yes - Time Spent With Patient Total time spent is greater than 50% in coordination of care (as documented) at patient's floor/unit and/or counseling patient:
[2019-01-01] MEDS: DOXAZOSIN 4 MG TABLET PO SCH (21:36)
[2019-01-01] MEDS: MELATONIN 3 MG TABLET PO PRN (21:36)
[2019-01-01] MEDS: SENNOSIDES/DOCUSATE SODIUM 1 TAB TABLET PO SCH (21:41)
[2019-01-02] MEDS: PIPERACILLIN SODIUM/TAZOBACTAM 3.375 GM in DEXTROSE 5% IN WATER 50 ML IV SCH ×5 (00:48→23:27)
[2019-01-02] MEDS: 0.9 % SODIUM CHLORIDE 10 ML SYRINGE IV SCH ×4 (01:21→20:41)
[2019-01-02 05:43] LABS: Hematocrit 41.4 % (41.0-55.0); Hemoglobin 13.3 g/dL (13.5-16.5); Mean Cell Volume 84.1 fL (80.0-100.0); Mean Platelet Volume 7.4 fL (7.4-10.4); Platelet Count 300 K/mcL (140-440); RBC 4.92 M/mcL (4.50-5.90); Red Cell Distribution Width 18.7 % (11.5-14.5); WBC 6.6 K/mcL (4.5-11.0)
[2019-01-02 06:15] LABS: ALT/SGPT 14 U/l (0-40); AST/SGOT 11 U/l (0-37); Albumin 3.7 gm/dL (3.2-5.2); Albumin/Globulin Ratio 1.3 (1.0-2.3); Alkaline Phosphatase 97 U/L (39-117); Bilirubin,Direct < 0.2 mg/dL (0.0-0.3); Bilirubin,Total 0.6 mg/dL (0.0-1.0); Blood Urea Nitrogen 12 mg/dl (8-23); Calcium 8.7 mg/dl (8.6-10.4); Carbon Dioxide 29 mmol/L (22-30); Chloride 97 mmol/L (96-108); Gamma Glutamyl Transpeptidase 39 U/L (8-61); Globulin 2.8 gm/dL (2.2-3.7); Glomerular Filtration Rate 75; Glucose 95 mg/dL (70-105); Lactate Dehydrogenase 140 U/L (94-250); Magnesium 2.3 mg/dL (1.6-2.5); Phosphorous 4.4 mg/dL (2.7-4.5); Potassium 2.9 mmol/L (3.3-5.1); Sodium 140 mmol/L (133-145); Triglycerides 139 mg/dl (<150)
[2019-01-02 06:53] LABS: Anisocytosis 1+ (NONE SEEN); Band Neutrophils % 1 % (0-10); Basophils % (Manual) 1 % (0-2); Lymphocytes % 15 % (15-49); Monocytes % (Manual) 10 % (1-12); Platelet Estimate NORMAL (NORMAL); RBC Morphology ABNORM (NORMAL); Segmented Neutrophils % 73 % (38-78)
[2019-01-02] MEDS ORDERED: POTASSIUM CHLORIDE 20 MEQ TABLET PO ONE (07:18)
[2019-01-02] MEDS: OMEPRAZOLE 20 MG CAPSULE PO SCH (07:53)
[2019-01-02] MEDS: PANTOPRAZOLE 40 MG VIAL IV SCH ×2 (07:53→17:20)
[2019-01-02] MEDS: CARVEDILOL 6.25 MG TABLET PO SCH ×2 (07:59→17:21)
[2019-01-02] MEDS: FUROSEMIDE 40 MG/4 ML VIAL IV SCH ×2 (08:00→15:08)
[2019-01-02] MEDS: DOCUSATE SODIUM 100 MG CAPSULE PO SCH ×3 (08:45→20:40)
[2019-01-02] MEDS: HEPARIN 5,000 UNIT/ML VIAL SQ SCH ×2 (08:45→20:40)
[2019-01-02] MEDS: MULTIVIT,THER IRON,CA,FA & MIN 1 TABLET PO SCH (08:45)
--- NOTE | 2019-01-02 09:20 | XRay Report ---
CLINICAL INFORMATION: Follow-up CHF COMPARISON: 12/31/2018 FINDINGS: Heart is mildly enlarged - slightly decreased. Mediastinum is unremarkable. The pulmonary vessels have returned to normal in caliber. The interstitial edema has cleared. There are no infiltrates or effusions IMPRESSION: Interval resolution in acute CHF Interpreted and Authenticated by: Elie Liriano 01/02/19
--- NOTE | 2019-01-02 10:26 | Internal Med Progress Note ---
Medical - PN: Subj Patient information: Note initiated : 01/02/19 at 10:24 am Service Date, if different from initiated Date: [] Patient: Jacquelin Red 73 y/o M admitted on 12/31/18 for SOB x2 weeks. Chief Complaint: [] Interval history: Mr. Red is a 73 year old M with a history of NYHA class III systolic heart failure with EF 25-30% to presents to the ER with worsening shortness of breath that has evolved over the last few days. Patient has associated intermittent abdominal cramping and comes in waves. Pain is without radiation . Patient has not had a normal bowel movement over the last few days. He feels his abdominal is more bloated. Initial workup in the ER was consistent with small bowel obstruction/congestive heart failure. Patient was started on diuretics. Surgery was consulted and [facility] pitalist service was requested for admission At the time of evaluation patient is accompanied with his daughter. He was able to answer most questions endorse a history as above. He does have degenerative joint disease and has been taking Aleve 1-2 pills every day. He denies [id number]-smrgrho medications or excessive salt diet. Denies weight gain or weight loss, lightheadedness, chest pain. 01/01-patient undergoing CT abdomen with oral IV contrast. Surgery on board. Currently NG tube decompression and bowel rest. I's and white count stable. No overnight events including fever chills or worsening abdominal pain. No concerns per staff. 01/02-patient doing well. No overnight fever chills or abdominal cramps. One BM yesterday. On antibiotic coverage for acute diverticulitis. Reviewed echocardiogram finding with EF 25-30%. CHF clinically improving with improved dyspnea with diuresis. No overnight fever chills. Will need outpatient cardiology follow-up on discharge. Surgery on board. On clear liquid diet as per surgery - Constitutional Vitals: Vital Signs Temp Pulse Resp BP Pulse Ox 98.0 F 74 16 139/86 95 01/02/19 08:00 01/02/19 04:00 01/02/19 08:00 01/02/19 08:00 01/02/19 08:00 Period Temp Pulse Resp BP Sys/Shrestha Pulse Ox Last 24 Hr 97.6 F-98.3 F 60-74 16-20 110-148/62-86 93-95 Intake and Output 01/01/19 01/02/19 01/02/19 21:59 05:59 13:59 Intake Total 959 982 6004 Output Total 1050 175 850 Balance -70 -15 310 Weight 174 lb 11.2 oz Intake & Output: Intake & Output 01/01/19 01/02/19 01/02/19 21:59 05:59 13:59 Intake Total 551 482 4751 Output Total 1050 175 850 Balance -70 -15 310 Weight 174 lb 11.2 oz Intake: IV 50 100 Zosyn 3.375 gm In Dextrose 5% 50 100 in Water 50 ml @ 100 mls/hr IV Q6H [facility] Rx#:[id number] Oral [id number] Output: Void Amount 1050 175 850 Other: Meal Dinner Breakfast Percent of Meal Consumed 75% 100% Feeding Ability Independent Independent Urine Appearance Clear Clear Urine Color Bright Yellow Bright Yellow Dark Sabine Urine Odor Normal Normal General appearance: no acute distress Exam: Alert oriented and ambulating Nonlabored breathing No anxiety Nondistended abdomen No lymphedema Medical - PN: Obj Da - Labs CBC & Chem 7: 01/02/19 03:55 01/02/19 03:55 Labs: Abnormal Lab Results 01/02/19 01/02/19 01/01/19 03:55 03:55 07:38 Hgb 13.3 L Hct RDW 18.7 H [place] % (Auto) Lymph # (Auto) RBC Morphology Abnorm A Polychromasia Anisocytosis 1+ A ESR 18 H Potassium 2.9 L* Calcium Myoglobin NT-Pro-B Natriuret Pep 01/01/19 12/31/18 12/31/18 03:47 10:28 10:28 Hgb 12.9 L Hct 40.5 L RDW 19.3 H [place] % (Auto) Lymph # (Auto) RBC Morphology Abnorm A Polychromasia 1+ A Anisocytosis 1+ A ESR Potassium Calcium 8.4 L Myoglobin < 25 L NT-Pro-B Natriuret Pep 2760.0 H 12/31/18 10:28 Hgb 12.4 L Hct 38.9 L RDW 19.2 H [place] % (Auto) 14.1 H Lymph # (Auto) 1.2 L RBC Morphology Polychromasia Anisocytosis ESR Potassium Calcium Myoglobin NT-Pro-B Natriuret Pep Meds: Medications Acetaminophen (Tylenol) 650 mg PO Q4-6HP PRN PRN Reason: PAIN/FEVER > 101 Benzocaine (Cetacaine) 1 spray TOPICAL PRN PRN PRN Reason: Sore Throat Carvedilol (Coreg) 6.25 mg PO BIDCC [facility] Last Admin: 01/02/19 07:59 Dose: 6.25 mg Documented by: Docusate Sodium (Colace) 100 mg PO BID [facility] Last Admin: 01/02/19 08:50 Dose: Not Given Documented by: Doxazosin Mesylate (Cardura) 8 mg PO HS [facility] Last Admin: 01/01/19 21:36 Dose: 8 mg Documented by: Furosemide (Lasix) 40 mg IV BIDD [facility] Last Admin: 01/02/19 08:00 Dose: 40 mg Documented by: Heparin Sodium (Porcine) (Heparin) 5,000 unit SQ Q12 [facility] Last Admin: 01/02/19 08:45 Dose: 5,000 unit Documented by: Hydralazine HCl (Apresoline) 10 mg IV Q4-6HP PRN PRN Reason: Hypertension Potassium Chloride 40 meq/ (Dextrose) 520 mls @ 130 mls/hr IV UD PRN PRN Reason: K+ = or < 3.5 Magnesium Sulfate (Magnesium Sulfate) 2 gm in 50 mls @ 50 mls/hr IV UD PRN PRN Reason: MG = or < 1.7 Piperacillin Sod/Tazobactam (Sod 3.375 gm/ Dextrose) 50 mls @ 100 mls/hr IV Q6H [facility]; Protocol Last Infusion: 01/02/19 05:50 Dose: Infused Documented by: Iron Carb/Multivit/[place]/Folic Acid (Multivitamin W/Minerals) 1 tab PO DAILY [facility] Last Admin: 01/02/19 08:45 Dose: 1 tab Documented by: Melatonin (Melatonin 3mg Tablet) 6 mg PO HSP PRN PRN Reason: Insomnia Last Admin: 01/01/19 21:36 Dose: 6 mg Documented by: Omeprazole (Prilosec) 20 mg PO QAMAC [facility] Last Admin: 01/02/19 07:53 Dose: 20 mg Documented by: Ondansetron HCl (Zofran) 4 mg IV Q4-6HP PRN PRN Reason: Nausea And Vomiting Pantoprazole Sodium (Protonix) 40 mg IV BIDAC [facility] Last Admin: 01/02/19 07:53 Dose: 40 mg Documented by: Senna/Docusate Sodium (Senna Plus Tablet) 1 tab PO HS [facility] Last Admin: 01/01/19 21:41 Dose: Not Given Documented by: Sodium Chloride (Saline Flush) 10 ml IV Q8 [facility] Last Admin: 01/02/19 05:21 Dose: 10 ml Documented by: Medical - PN: A/P - Time Spent With Patient Total time spent is greater than 50% in coordination of care (as documented) at patient's floor/unit and/or counseling patient: 25 - 35 minutes (1) Heart failure, systolic, with acute decompensation Status: Acute Assessment and plan: * Acute decompensated heart failure systolic -repeat echo EF 25-30%. Clinical response noted to continued diuresis. Continue Coreg. Patient is allergic to OMID inhibitor. Scheduled outpatient cardiology follow-up on discharge for better optimization of CHF. * Acute diverticulitis-managed per surgery. On antibiotic coverage per surgery. Unclear liquid diet. * History of hypertension -start Coreg * Full code * Prophylaxis heparin Plan * Acute diverticulitis management per surgery * Continue diuresis/Coreg * Outpatient cardiology follow-up for CHF management Current Visit: Yes Medical - PN: Qual - VTE Deep Vein Thrombosis/Pulmonary Embolism Present on Admission: No
--- NOTE | 2019-01-02 14:07 | General Surgery Progress Note ---
Subjective Patient reports: feels better, tolerating liquids well, flatus, bowel movement, afebrile Narrative: Note initiated : 01/02/19 at 2:04 pm Service Date, if different from initiated Date: [] Patient: Jacquelin Red 73 y/o M admitted on 12/31/18 for SOB x2 weeks. Chief Complaint: [patient continued to do well. He is having soft bowel movements. He denies abdominal pain. He is tolerating liquid diet without difficulty. He remains afebrile. Discussed his discharge with Dr. Morris and will be discharged tomorrow.] Objective Temp Pulse Resp BP Pulse Ox 97.3 F 74 16 127/88 96 01/02/19 11:29 01/02/19 04:00 01/02/19 11:29 01/02/19 11:29 01/02/19 11:29 - Additional Data Intake & Output - Last 24 hours: Intake & Output 12/31/18 01/01/19 01/02/19 01/03/19 05:59 05:59 05:59 05:59 Intake Total 1000 3160 1160 Output Total 3675 2525 850 Balance -2675 635 310 Weight 174 lb 12.8 oz 174 lb 11.2 oz - General physical appearance well developed, well nourished, no distress, no pain - Eyes PERRL, normal ocular movement - ENT normal pinna, normal nares, normal mucosa, no hearing loss, no congestion - Neck no masses (i), no bruits, trachea midline, no lymphadenopathy, no venous distension - Respiratory normal expansion, normal respiratory effort, clear to auscultation - Cardiovascular Cardiovascular exam: Present: normal rate and rhythm, RRR, +S1, +S2. Absent: JVD, tachycardia - Abdomen non tender, bowel sounds (present), surgical scars (none), masses (none) - Integumentary no rash, no growths, no abnormal pigmentation - Neurologic normal coordination, normal sensation - Musculoskeletal normal gait, normal posture - Psychiatric oriented to time, oriented to person, oriented to place, speech is normal, memory intact - Labs 01/02/19 03:55 01/02/19 03:55 Diabetes panel 01/02/19 Range/Units 03:55 Sodium 140 (133-145) mmol/L Potassium 2.9 L* (3.3-5.1) mmol/L Chloride 97 (96-108) mmol/L Carbon Dioxide 29 (22-30) mmol/L BUN 12 (8-23) mg/dl Creatinine 1.0 (0.7-1.2) mg/dl Glucose 95 (70-105) mg/dL Calcium 8.7 (8.6-10.4) mg/dl AST 11 (0-37) U/l ALT 14 (0-40) U/l Alkaline Phosphatase 97 (39-117) U/L Total Protein 6.5 (5.9-8.4) gm/dL Albumin 3.7 (3.2-5.2) gm/dL Triglycerides 139 (<150) mg/dl Calcium panel 01/02/19 Range/Units 03:55 Calcium 8.7 (8.6-10.4) mg/dl Phosphorus 4.4 (2.7-4.5) mg/dL Albumin 3.7 (3.2-5.2) gm/dL Pituitary panel 01/02/19 Range/Units 03:55 Sodium 140 (133-145) mmol/L Potassium 2.9 L* (3.3-5.1) mmol/L Chloride 97 (96-108) mmol/L Carbon Dioxide 29 (22-30) mmol/L BUN 12 (8-23) mg/dl Creatinine 1.0 (0.7-1.2) mg/dl Glucose 95 (70-105) mg/dL Calcium 8.7 (8.6-10.4) mg/dl Adrenal panel 01/02/19 Range/Units 03:55 Sodium 140 (133-145) mmol/L Potassium 2.9 L* (3.3-5.1) mmol/L Chloride 97 (96-108) mmol/L Carbon Dioxide 29 (22-30) mmol/L BUN 12 (8-23) mg/dl Creatinine 1.0 (0.7-1.2) mg/dl Glucose 95 (70-105) mg/dL Calcium 8.7 (8.6-10.4) mg/dl Total Bilirubin 0.6 (0.0-1.0) mg/dL AST 11 (0-37) U/l ALT 14 (0-40) U/l Alkaline Phosphatase 97 (39-117) U/L Total Protein 6.5 (5.9-8.4) gm/dL Albumin 3.7 (3.2-5.2) gm/dL Assessment and Plan (1) Cardiomyopathy as manifestation of underlying disease Status: Acute Assessment and plan: Patient is asymptomatic at this time. hE IS STABLE FOR DISCHARGE TOMORROW. He should be discharged on 2 weeks of ciprofloxacin and Flagyl by mouth. Follow-up CT of the abdomen and pelvis with IV contrast in 2 weeks. Office appointment with me 2 days after completion of his CT scan Current Visit: Yes (2) Hypertension, essential Status: Chronic Current Visit: No (3) Constipation by delayed colonic transit Status: Acute Current Visit: Yes (4) Adynamic ileus Status: Acute Current Visit: Yes (5) Diverticulitis of sigmoid colon Status: Acute Assessment and plan: Started on Zosyn every 6 hours Advanced to clear liquid diet Current Visit: Yes - Time Spent With Patient Total time spent is greater than 50% in coordination of care (as documented) at patient's floor/unit and/or counseling patient:
[2019-01-02] MEDS: LOSARTAN 25 MG TABLET PO SCH (15:09)
[2019-01-02] MEDS: DOXAZOSIN 4 MG TABLET PO SCH (20:39)
[2019-01-02] MEDS: SENNOSIDES/DOCUSATE SODIUM 1 TAB TABLET PO SCH (20:40)
[2019-01-02] MEDS: MELATONIN 3 MG TABLET PO PRN (23:26)
[2019-01-03 05:29] LABS: Hematocrit 41.7 % (41.0-55.0); Hemoglobin 13.3 g/dL (13.5-16.5); Mean Cell Volume 84.6 fL (80.0-100.0); Mean Corpuscular HGB Conc 31.9 g/dL (31.0-36.0); Mean Platelet Volume 7.4 fL (7.4-10.4); Platelet Count 309 K/mcL (140-440); RBC 4.92 M/mcL (4.50-5.90); Red Cell Distribution Width 18.8 % (11.5-14.5)
[2019-01-03 05:43] LABS: ALT/SGPT 12 U/l (0-40); AST/SGOT 10 U/l (0-37); Albumin 3.6 gm/dL (3.2-5.2); Albumin/Globulin Ratio 1.2 (1.0-2.3); Alkaline Phosphatase 90 U/L (39-117); Bilirubin,Direct < 0.2 mg/dL (0.0-0.3); Bilirubin,Total 0.4 mg/dL (0.0-1.0); Blood Urea Nitrogen 15 mg/dl (8-23); Calcium 8.6 mg/dl (8.6-10.4); Carbon Dioxide 28 mmol/L (22-30); Chloride 99 mmol/L (96-108); Gamma Glutamyl Transpeptidase 35 U/L (8-61); Globulin 2.9 gm/dL (2.2-3.7); Glomerular Filtration Rate 67; Glucose 92 mg/dL (70-105); Lactate Dehydrogenase 134 U/L (94-250); Magnesium 2.3 mg/dL (1.6-2.5); Phosphorous 4.5 mg/dL (2.7-4.5); Potassium 3.3 mmol/L (3.3-5.1); Sodium 141 mmol/L (133-145); Triglycerides 145 mg/dl (<150); Uric Acid 4.8 mg/dL (2.5-8.0)
[2019-01-03] MEDS: PIPERACILLIN SODIUM/TAZOBACTAM 3.375 GM in DEXTROSE 5% IN WATER 50 ML IV SCH ×2 (05:51→12:14)
[2019-01-03] MEDS: 0.9 % SODIUM CHLORIDE 10 ML SYRINGE IV SCH (05:54)
[2019-01-03] MEDS: PANTOPRAZOLE 40 MG VIAL IV SCH (06:51)
[2019-01-03] MEDS: OMEPRAZOLE 20 MG CAPSULE PO SCH (06:51)
[2019-01-03 06:54] LABS: Anisocytosis 1+ (NONE SEEN); Eosinophils % (Manual) 1 % (0-7); Lymphocytes % 38 % (15-49); Monocytes % (Manual) 10 % (1-12); Platelet Estimate NORMAL (NORMAL); RBC Morphology ABNORM (NORMAL); Reactive Lymphocytes 1 % (0-2); Segmented Neutrophils % 50 % (38-78)
[2019-01-03] MEDS: MULTIVIT,THER IRON,CA,FA & MIN 1 TABLET PO SCH (08:10)
[2019-01-03] MEDS: FUROSEMIDE 40 MG/4 ML VIAL IV SCH (08:10)
[2019-01-03] MEDS: CARVEDILOL 6.25 MG TABLET PO SCH (08:10)
[2019-01-03] MEDS: LOSARTAN 25 MG TABLET PO SCH (08:10)
[2019-01-03] MEDS: HEPARIN 5,000 UNIT/ML VIAL SQ SCH (08:11)
[2019-01-03] MEDS: DOCUSATE SODIUM 100 MG CAPSULE PO SCH (08:11)
--- NOTE | 2019-01-03 09:38 | Discharge Summary ---
Medical - DS: Prov Patient information: Note initiated : 01/03/19 at 9:36 am Service Date, if different from initiated Date: [] Patient: Jacquelin Red 73 y/o M admitted on 12/31/18 for SOB x2 weeks. Chief Complaint: [] Date of admission: 12/31/18 14:12 Discharge date: 01/03/19 Primary care physician: Ac Burt Consults: 12/31/18 Consult to Physician [CONS] Stat Comment: Consulting Provider: Ham Canas Reason For Exam: Physician to Consult 12/31/18 13:06 Consult to Physician [CONS] Stat Comment: Consulting Provider: Nahum Livingston Reason For Exam: Physician to Consult Medical - DS: Meds - Discharge Medications Prescriptions: Acetaminophen [Tylenol] 650 mg PO Q4-6HP PRN #60 tab PRN Reason: Pain/Fever > 101 Ciprofloxacin [Cipro] 500 mg PO BID #40 tab Furosemide [Lasix] 20 mg PO Q48 #30 tab Losartan [Cozaar] 25 mg PO DAILY #30 tab metroNIDAZOLE [Flagyl] 500 mg PO Q8 #60 tab Active and Home Medications: Home Medications carvedilol 6.25 mg tablet 6.25 mg PO BID #180 tab 06/23/18 [Rx Confirmed 12/31/18 Last Taken 12/31/18] doxazosin 8 mg tablet 8 mg PO QDAY #90 tab 06/26/18 [Rx Confirmed 12/31/18 Last Taken 12/30/18] omeprazole 20 mg capsule,delayed release 20 mg PO QDAY cap 07/09/18 [History Confirmed 12/31/18 Last Taken 12/31/18] Acetaminophen/Diphenhydramine [Tylenol Pm] 1 tab PO HS PRN 12/31/18 [History Confirmed 12/31/18 Last Taken 12/30/18] Arginine HCl [l-Arginine] 1 tab PO DAILY 12/31/18 [History Confirmed 12/31/18 Last Taken 12/31/18] Sildenafil Citrate [Viagra] 100 mg PO PRN PRN 12/31/18 [History Confirmed 12/31/18 Last Taken Unknown] Ciprofloxacin [Cipro] 500 mg PO BID #40 tab 01/02/19 [Rx Last Taken Unknown] metroNIDAZOLE [Flagyl] 500 mg PO Q8 #60 tab 01/02/19 [Rx Last Taken Unknown] Acetaminophen [Tylenol] 650 mg PO Q4-6HP PRN #60 tab 01/03/19 [Rx Last Taken Unknown] Furosemide [Lasix] 20 mg PO Q48 #30 tab 01/03/19 [Rx Last Taken Unknown] Losartan [Cozaar] 25 mg PO DAILY #30 tab 01/03/19 [Rx Last Taken Unknown] Medical - DS: Hosp Hospital course: Discharge diagnosis * Acute decompensated heart failure systolic -repeat echo EF 25-30%. Clinical response noted to continued diuresis. Continue Coreg/ARB. Patient is allergic to OMID inhibitor-cough. Schedule outpatient cardiology follow-up on discharge for better optimization of CHF. Continue Lasix every other day and as needed if weight gain is over 4 pounds baseline * Acute diverticulitis evident on CT- clinically resolved with management per surgery. Discharging on Cipro and Flagyl per surgery. Patient will follow-up with surgery as outpatient with repeat CT scan abdomen in 2 weeks. * History of hypertension -continue Coreg/doxzocin/losartan Brief hospital course Mr. Red is a 73 year old M with a history of NYHA class III systolic heart failure with EF 25-30% to presents to the ER with worsening shortness of breath that has evolved over the last few days. Patient has associated intermittent abdominal cramping and comes in waves. Pain is without radiation . Patient has not had a normal bowel movement over the last few days. He feels his abdominal is more bloated. Initial workup in the ER was consistent with small bowel obstruction/congestive heart failure. Patient was started on diuretics. Surgery was consulted and hospitalist service was requested for admission At the time of evaluation patient is accompanied with his daughter. He was able to answer most questions endorse a history as above. He does have degenerative joint disease and has been taking Aleve 1-2 pills every day. He denies [id number] medications or excessive salt diet. Denies weight gain or weight loss, lightheadedness, chest pain. 01/01-patient undergoing CT abdomen with oral IV contrast. Surgery on board. Currently NG tube decompression and bowel rest. I's and white count stable. No overnight events including fever chills or worsening abdominal pain. No concerns per staff. 01/02-patient doing well. No overnight fever chills or abdominal cramps. One BM yesterday. On antibiotic coverage for acute diverticulitis. Reviewed echocardiogram finding with EF 25-30%. CHF clinically improving with improved dyspnea with diuresis. No overnight fever chills. Will need outpatient cardiology follow-up on discharge. Surgery on board. On clear liquid diet as per surgery 01/03-patient doing remarkably better. Denies abdominal pain or fever or diarrhea. Shortness of breath resolved. Discharging on their yoan/OMID i nhibitor along with diuretics with recommendations to follow up with surgery and cardiology as outpatient. Discharge instructions/medications as below Discharge diagnosis: . - Time Spent with Patient Total time spent providing and/or coordinating discharge services: Greater than 30 minutes Medical - DS: Exam - Constitutional Vitals: Vital Signs Temp Pulse Resp BP Pulse Ox 01/03/19 07:43 97.4 F 16 131/80 94 01/03/19 04:57 97.7 F 69 16 107/70 94 01/02/19 23:36 97.5 F 68 16 122/80 95 01/02/19 18:58 97.3 F 70 20 105/66 92 01/02/19 16:00 97.9 F 20 137/84 95 01/02/19 11:29 97.3 F 16 127/88 96 Intake and Output 01/02/19 01/03/19 01/03/19 21:59 05:59 13:59 Intake Total 650 250 290 Output Total 750 200 Balance -100 50 290 Intake: IV 50 50 50 Zosyn 3.375 gm In Dextrose 5% 50 50 50 in Water 50 ml @ 100 mls/hr IV Q6H [facility] Rx#:[id number] Oral 600 200 240 Output: Void Amount 750 200 Other: Meal Dinner Breakfast Percent of Meal Consumed 100% 100% Feeding Ability Independent Independent Urine Appearance Clear Clear Urine Color Dark Yellow Dark Yellow Urine Odor Normal Normal Stool Size Large Stool Consistency Liquid # Bowel Movements 1 0 Weight 171 lb 12.8 oz Medical - DS: Data Labs on day of discharge: Labs from last 24 hours 01/03/19 01/03/19 04:04 04:04 WBC 6.0 RBC 4.92 Hgb 13.3 L Hct 41.7 MCV 84.6 MCH 26.9 MCHC 31.9 RDW 18.8 H Plt Count 309 MPV 7.4 Total Counted 100 Seg Neutrophils % 50 Band Neutrophils % Not Reportable Lymphocytes % 38 Monocytes % (Manual) 10 Eosinophils % (Manual) 1 Reactive Lymphocytes 1 Platelet Estimate Normal RBC Morphology Abnorm A Anisocytosis 1+ A Sodium 141 Potassium 3.3 Chloride 99 Carbon Dioxide 28 Anion Gap 14.0 BUN 15 Creatinine 1.1 GFR Calculation 67 Glucose 92 Uric Acid 4.8 Calcium 8.6 Phosphorus 4.5 Magnesium 2.3 Total Bilirubin 0.4 Direct Bilirubin < 0.2 GGT 35 AST 10 ALT 12 Alkaline Phosphatase 90 Lactate Dehydrogenase 134 Total Protein 6.5 Albumin 3.6 Globulin 2.9 Albumin/Globulin Ratio 1.2 Triglycerides 145 Medical - DS: A/P - Patient/Caregiver Discharge Instructions Activity: increase activity as tolerated, resume usual activities as tolerated Diet: Low Sodium (2gm) (as per surgery recommendations) Additional Instructions: Follow-up PCP in 5 days Follow surgery as advised for repeat CT scan. 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 Please schedule an appointment prior discharge I recommend primary care physician to check CBC BMP UA as a posthospital follow- up Continue Coreg/losartan/20 mg Lasix every other day with potassium daily weights measurements and take additional 40 mg Lasix for 3 days if weight gain over 4 pounds over baseline or worsening shortness of breath and call prima care physician if inadequate response to Lasix Continue aggressive PT OT evaluation and treatment at [facility]. ST eval and treatment if indicated All meals on chair sitting upright at 90 degrees to prevent aspiration Return to ER if worsening fever chills shortness of breath, diarrhea, bleeding Review risk and side effect profile of medications including antibiotics. Side effect may include mild to severe reaction including rash, diarrhea, cdiff and even which can be prevented by close follow-up with PCP and monitoring for side effects Refrain from smoking and alcohol Continue diet and activity as advised Discussed importance of medication adherence Please review medication list with patient prior to discharge Please schedule follow-up with PCP/Providers prior to discharge and provide printouts Prescriptions: Acetaminophen [Tylenol] 650 mg PO Q4-6HP PRN #60 tab PRN Reason: Pain/Fever > 101 Ciprofloxacin [Cipro] 500 mg PO BID #40 tab Furosemide [Lasix] 20 mg PO Q48 #30 tab Losartan [Cozaar] 25 mg PO DAILY #30 tab metroNIDAZOLE [Flagyl] 500 mg PO Q8 #60 tab Potassium Chloride [Kdur] 10 meq PO Q48 #30 tab Other Amb Orders: CT abdomen pelvis w con Time Frame: 2 Weeks, Facility: [facility], Location: Radiology - Problem Maintenance (1) Heart failure, systolic, with acute decompensation Status: Acute - Follow up Plan Follow up with: Ac Burt MD [Primary Care Provider] - Disposition: Home, Self-Care Prognosis: Fair Rehab Potential: Fair Overall status at discharge: patient is back to baseline Medical - DS: Qual - VTE Deep Vein Thrombosis/Pulmonary Embolism Present on Admission: No
== END 2019-01-03 13:15 | disposition home or self-care (01) | DRG 302 ==
LOC: ED 09:35 → ICU 14:12 → MEDSUR 01-01 09:28
PROVIDERS: ADMIT Internal Medicine; ATTEND Internal Medicine

== ENCOUNTER 2019-10-06 10:30 | Inpatient (IN) ==
[2019-10-06] MEDS ORDERED: IOPAMIDOL 100 ML BOTTLE IV ONE (10:31)
[2019-10-06] MEDS ORDERED: 0.9 % SODIUM CHLORIDE 1,000 ML IV ONE (10:50)
--- NOTE | 2019-10-06 10:55 | Emergency Department Note ---
General Adult HPI - General Chief complaint: Cold/Flu Symptoms Stated complaint: chills Time Seen by Provider: 10/06/19 10:39 Source: patient Mode of arrival: wheelchair Limitations: no limitations - History of Present Illness HPI Narrative: 74-year-old male patient presents emergency department with racking chills. Patient tells me the chills started abruptly this morning around 0300. She took some acetaminophen and they have subsided gently until about an hour ago when they recurred. He is unsure about subjective fevers at home. Other than the chills he has no other complaint. He is concerned because he was recently treated for diverticulitis and has had sepsis in the past x3. He denies sweats. He denies sinus congestion, runny nose, or cough. He denies headache or vision changes. He denies shortness of breath. He denies retrosternal chest pain. He denies abdominal pain, nausea, vomiting, or diarrhea. He recently finished a course of antibiotics for diverticulitis at the end of August. He denies dysuria, frequency, or hematuria. He denies focal weakness. A review of his active problems shows the following: Sepsis, fever of unknown origin, CHF, small bowel obstruction, systolic heart failure, cardiomyopathy, constipation, diverticulitis, basal cell cancer of the face, back pain, history of tobacco use, hypertension, acid reflux, coronary artery disease, and old NM. - Related Data Home Medications Medication Instructions Recorded Confirmed omeprazole 20 mg capsule,delayed 20 mg PO QDAY cap 07/09/18 02/25/19 release Acetaminophen/Diphenhydramine 1 tab PO HS PRN 12/31/18 02/25/19 [Tylenol Pm] Arginine HCl [l-Arginine] 1 tab PO DAILY 12/31/18 02/25/19 Sildenafil Citrate [Viagra] 100 mg PO PRN PRN 12/31/18 02/25/19 Previous Rx's Medication Instructions Recorded carvedilol 6.25 mg tablet 6.25 mg PO BID #180 tab 06/23/18 doxazosin 8 mg tablet 8 mg PO QDAY #90 tab 06/26/18 Acetaminophen [Tylenol] 650 mg PO Q4-6HP PRN #60 tab 01/03/19 Furosemide [Lasix] 20 mg PO Q48 #30 tab 01/03/19 Losartan [Cozaar] 25 mg PO DAILY #30 tab 01/03/19 Potassium Chloride [Kdur] 10 meq PO Q48 #30 tab 01/03/19 Allergies Allergy/AdvReac Type Severity Reaction Status Date / Time OMID Inhibitors AdvReac Mild Cough Verified 02/25/19 13:11 Eoyqqpc-Bcj-Iyp Reductase AdvReac Mild hip and Verified 02/25/19 13:11 Inhibitor leg pain Review of Systems All systems ED: reviewed and negative except as stated. Past Medical History - Past Medical History Medical history: Reports: CAD (coronary artery disease), hyperlipidemia, myocardial infarction, other (history of ejection fraction 26-31% due to multiple NM's). Denies: cancer, GI bleed, thyroid disease Surgical history ED: Reports: coronary bypass (CABG), other (Had a surgical procedure on his eye with a film on the retina being done in [place]. He had a urologic procedure for urethral scarring done in 2016.) - Social History smoking status: Former smoker Alcohol use: Reports: Rarely (none for 6 months.) Drug use: Reports: none Physical Exam Limitations: no limitations General appearance: alert, anxious, other (Well-developed, well-nourished 73-year-old male patient laying supine on the emergency room gurney in obvious distress. He is shivering aggressively.) Head: atraumatic, normocephalic Eye: Present: normal appearance, PERRL, EOMI. Absent: scleral icterus, conjunctival injection ENT: Present: normal oropharynx, mucous membranes moist Neck: Present: trachea midline. Absent: lymphadenopathy, thyromegaly Chest: Present: symmetric chest wall rise Respiratory: Present: normal lung sounds bilaterally. Absent: respiratory distress, wheezes, stridor, accessory muscle use, prolonged expiratory phase Cardiovascular: Present: normal rhythm, tachycardia. Absent: systolic murmur, diastolic murmur Abdominal: Present: soft, tenderness. Absent: distention, guarding, rebound, rigidity, organomegaly, mass Abdominal tenderness: Present: LLQ, mild Extremities: Present: normal inspection, full ROM, normal capillary refill. Absent: pedal edema Neurological: Present: alert, oriented X3 Psychiatric: Present: normal affect, anxious Skin: Present: warm, dry, normal color. Absent: cyanosis, pallor Course Course Narrative: Patient was brought into the emergency department and a history and physical exam was performed. Saline lock was established laboratory studies were drawn. Portable chest x-ray was ordered and reviewed. Abdominal/pelvic CT scan with contrast was ordered and reviewed. Patient given normal saline 1000 mL of the. A review of his laboratory studies show the following: CBC within normal limits. CMP AST 53, ALT 132, alkaline phosphatase 166, all others normal limits. Procalcitonin 0.33. Lactic acid 2.0. Portable chest x-ray showed minor bibasilar atelectasis. Contrast-enhanced abdominal/pelvic CT scan showing moderate eccentric wall thickening of the mid sigmoid colon with multiple inflamed diverticuli and perisigmoid inflammation compatible with recurrent or chronic sigmoid diverticulitis. Radiologist recommends referral to general surgery due to the recurrence of this. 10 mm stone, or less likely, soft tissue mass in the ampullary region of the common bile duct resulting in marked common bile duct dilatation. Radiologist recommended GI referral for ERCP. There was scattered hepatic cysts. After reviewing all the data discussed these findings with patient. At this time it seems prudent to do a few things: #1 patient needs to be referred to a general surgeon for ongoing management of his diverticulitis. I am going to start that referral today. #2 patient needs a referral to a parliamentary archivist. I am going to reach out to our on-call parliamentary archivist today to see if an ERCP needs to be done now or if this can be performed as an outpatient. I spoke to the on-call parliamentary archivist (Dr. Cartagena) who informed me that patients with this considerable presentation may become septic rather quickly and that it warrants a urgent admission and ERCP done this afternoon. With this in mind, I reached out to the hospitalist (Dr. Mcdonnell) about the need for admission. At this time Dr. Mcdonnell consented to receive the patient in the hospital. he recommended starting IV Zosyn prior to the admission so this was started as recommended. Patient is remained stable throughout his entire time the emergency department. As mentioned, is being admitted to the hospital under the both the hospitalist (Dr. Mcdonnell) and the parliamentary archivist (Dr. Cartagena) all further treatment decisions and modalities will be carried out by hospitalist and the specialist. Vital Signs Temperature 98.4 F 10/06/19 10:33 Pulse Rate 112 H 10/06/19 10:33 Respiratory Rate 26 H 10/06/19 10:33 Blood Pressure 119/84 10/06/19 10:33 Pulse Oximetry (%) 98 10/06/19 10:33 Temperature 98.3 F 10/06/19 11:28 Pulse Rate 112 H 10/06/19 10:33 Respiratory Rate 26 H 10/06/19 10:33 Blood Pressure 119/84 10/06/19 10:33 Pulse Oximetry (%) 98 10/06/19 10:33 Medical Decision Making - Lab Data Lab results reviewed: Yes I reviewed the patient's lab results. Result diagrams: 10/06/19 11:05 10/06/19 11:05 Lab Results 10/06/19 10/06/19 10/06/19 Range/Units 11:05 11:05 11:05 WBC 7.9 (4.50-11.00) K/mcL RBC 5.01 (4.63-6.08) M/mcL Hgb 14.4 (13.7-17.5) g/dL Hct 44.5 (40.1-51.0) % POC Hct 41.0 (41.0-55.0) % MCV 88.8 (80.0-100.0) fL MCH 28.7 (26.0-34.0) pg MCHC 32.4 (31.0-36.0) g/dL RDW 14.9 H (11.5-14.5) % Plt Count 219 (140-440) K/mcL MPV 9.5 (7.4-10.4) fL Gran % 87.2 H (38.0-78.0) % Lymph % (Auto) 7.6 L (15.5-49.0) % Sunflower % (Auto) 4.2 (1.0-12.0) % Eos % (Auto) 0.6 (0.0-7.0) % Baso % (Auto) 0.4 (0.0-2.0) % Gran # 6.89 (1.80-8.00) K/mcL Lymph # (Auto) 0.60 L (1.50-4.80) K/mcL Sunflower # (Auto) 0.33 (0.10-0.90) K/mcL Eos # (Auto) 0.05 (0.00-0.70) K/mcL Baso # (Auto) 0.03 (0.00-0.30) K/mcL VBG Lactic Acid 2.0 (0.5-2.0) mmol/L POC Sodium 136 (133-145) mmol/L Sodium 136 (133-145) mmol/L POC Potassium 4.4 (3.3-5.1) mmol/L Potassium 4.4 (3.3-5.1) mmol/L POC Chloride 100 (96-108) mmol/L Chloride 97 (96-108) mmol/L Carbon Dioxide 24 (22-30) mmol/L POC Total CO2 30 (22-30) mmol/L Anion Gap 15.0 (8-16) POC BUN 13 (8-23) mg/dl BUN 9 (8-23) mg/dl Creatinine 0.9 (0.7-1.2) mg/dl POC Creatinine 0.8 (0.7-1.2) mg/dl GFR Calculation 84 Glucose 101 (70-105) mg/dL POC Glucose 109 H (70-105) mg/dL Calcium 9.5 (8.6-10.4) mg/dl POC WB Ioniz Calcium 1.21 (1.16-1.32) mmol/L Total Bilirubin 0.9 (0.0-1.0) mg/dL AST 53 H (0-37) U/l ALT 132 H (0-40) U/l Alkaline Phosphatase 166 H (39-117) U/L Total Protein 7.0 (5.9-8.4) gm/dL Albumin 4.0 (3.2-5.2) gm/dL Globulin 3.0 (2.2-3.7) gm/dL Albumin/Globulin Ratio 1.3 (1.0-2.3) Procalcitonin (<0.10) ng/mL 10/06/19 Range/Units 11:05 WBC (4.50-11.00) K/mcL RBC (4.63-6.08) M/mcL Hgb (13.7-17.5) g/dL Hct (40.1-51.0) % POC Hct (41.0-55.0) % MCV (80.0-100.0) fL MCH (26.0-34.0) pg MCHC (31.0-36.0) g/dL RDW (11.5-14.5) % Plt Count (140-440) K/mcL MPV (7.4-10.4) fL Gran % (38.0-78.0) % Lymph % (Auto) (15.5-49.0) % Sunflower % (Auto) (1.0-12.0) % Eos % (Auto) (0.0-7.0) % Baso % (Auto) (0.0-2.0) % Gran # (1.80-8.00) K/mcL Lymph # (Auto) (1.50-4.80) K/mcL Sunflower # (Auto) (0.10-0.90) K/mcL Eos # (Auto) (0.00-0.70) K/mcL Baso # (Auto) (0.00-0.30) K/mcL VBG Lactic Acid (0.5-2.0) mmol/L POC Sodium (133-145) mmol/L Sodium (133-145) mmol/L POC Potassium (3.3-5.1) mmol/L Potassium (3.3-5.1) mmol/L POC Chloride (96-108) mmol/L Chloride (96-108) mmol/L Carbon Dioxide (22-30) mmol/L POC Total CO2 (22-30) mmol/L Anion Gap (8-16) POC BUN (8-23) mg/dl BUN (8-23) mg/dl Creatinine (0.7-1.2) mg/dl POC Creatinine (0.7-1.2) mg/dl GFR Calculation Glucose (70-105) mg/dL POC Glucose (70-105) mg/dL Calcium (8.6-10.4) mg/dl POC WB Ioniz Calcium (1.16-1.32) mmol/L Total Bilirubin (0.0-1.0) mg/dL AST (0-37) U/l ALT (0-40) U/l Alkaline Phosphatase (39-117) U/L Total Protein (5.9-8.4) gm/dL Albumin (3.2-5.2) gm/dL Globulin (2.2-3.7) gm/dL Albumin/Globulin Ratio (1.0-2.3) Procalcitonin 0.33 (<0.10) ng/mL - Radiology Data Radiology results reviewed: Yes I reviewed the patient's radiology results. Ordering Physician: Benny Leal PA-C Date of Service: 10/06/19 Procedure(s): XR chest 1V portable Accession Number(s): [id number] IMPRESSION: Minor bibasilar atelectasis. Ordering Physician: Benny Leal PA-C Date of Service: 10/06/19 Procedure(s): CT abdomen pelvis w con Accession Number(s): [id number] IMPRESSION: 1. Moderate eccentric wall thickening of the mid sigmoid colon with multiple inflamed diverticuli and perisigmoid inflammation compatible with recurrent or chronic sigmoid diverticulitis. Findings are actually similar to the exam dating back to 2016. No abscess or other complication. Given the chronicity of the findings, suggest referral to general surgery in consultation for partial sigmoidectomy. The possibility of annular adenocarcinoma is possible but less likely 2. Mild wall thickening of the urinary bladder dome likely a sympathetic response to the adjacent inflamed sigmoid colon. 3. 10 mm stone, or less likely, soft tissue mass in the ampullary region of the common bile duct resulting in marked common bile duct dilatation. Suggest GI referral for ERCP and removal. Moderate dilatation of the pancreatic duct shows slight increase. 4. Scattered hepatic cysts - stable Interpreted and Authenticated by: Elie Liriano 10/06/19 Disposition Pt seen by FOOD SERVICE TEAM MEMBER/PA only: Yes Clinical Impression: Diverticulitis of sigmoid colon Choledocholithiasis with obstruction Qualifiers: Cholecystitis presence: without cholecystitis Qualified Code(s): K80.51 - Calculus of bile duct without cholangitis or cholecystitis with obstruction Disposition: Xfer As Outpt/Obs ([facility]) Condition: Good Additional Instructions: Patient has been admitted to the hospital under the care of the hospitalist (Dr. Mcdonnell) with the parliamentary archivist (Dr. Cartagena) in consultation. All further treatment decisions, modalities, and ultimate patient disposition will be carried out by the hospitalist with the GI specialist in consult. Referrals: Ac Burt MD [Primary Care Provider] -
[2019-10-06 11:21] LABS: POC Blood Urea Nitrogen 13 mg/dl (8-23); POC CO2 30 mmol/L (22-30); POC Calcium, Ionized 1.21 mmol/L (1.16-1.32); POC Chloride 100 mmol/L (96-108); POC Creatinine 0.8 mg/dl (0.7-1.2); POC Glucose, Random 109 mg/dL (70-105); POC Potassium 4.4 mmol/L (3.3-5.1); POC Sodium 136 mmol/L (133-145)
[2019-10-06 11:45] LABS: Basophils # (Auto) 0.03 K/mcL (0.00-0.30); Basophils % (Auto) 0.4 % (0.0-2.0); Eosinophils # (Auto) 0.05 K/mcL (0.00-0.70); Eosinophils % (Auto) 0.6 % (0.0-7.0); Granulocytes % (Auto) 87.2 % (38.0-78.0); Hematocrit 44.5 % (40.1-51.0); Hemoglobin 14.4 g/dL (13.7-17.5); Lymphocytes % (Auto) 7.6 % (15.5-49.0); Mean Cell Volume 88.8 fL (80.0-100.0); Mean Corpuscular HGB Conc 32.4 g/dL (31.0-36.0); Mean Platelet Volume 9.5 fL (7.4-10.4); Monocytes # (Auto) 0.33 K/mcL (0.10-0.90); Monocytes % (Auto) 4.2 % (1.0-12.0); Platelet Count 219 K/mcL (140-440); RBC 5.01 M/mcL (4.63-6.08); Red Cell Distribution Width 14.9 % (11.5-14.5); WBC 7.9 K/mcL (4.50-11.00)
--- NOTE | 2019-10-06 12:02 | XRay Report ---
CLINICAL INFORMATION: 74 y/o M. tachypnea, chills, Hx of sepsis. COMPARISON: 01/02/2019 FINDINGS: Sternotomy changes noted. Heart size, mediastinum and pulmonary vessels are normal. There is minor bibasilar atelectasis - no infiltrates or effusions. IMPRESSION: Minor bibasilar atelectasis. Interpreted and Authenticated by: Elie Liriano 10/06/19
[2019-10-06 12:06] LABS: ALT/SGPT 132 U/l (0-40); AST/SGOT 53 U/l (0-37); Albumin/Globulin Ratio 1.3 (1.0-2.3); Alkaline Phosphatase 166 U/L (39-117); Bilirubin,Total 0.9 mg/dL (0.0-1.0); Blood Urea Nitrogen 9 mg/dl (8-23); Calcium 9.5 mg/dl (8.6-10.4); Carbon Dioxide 24 mmol/L (22-30); Chloride 97 mmol/L (96-108); Glomerular Filtration Rate 84; Glucose 101 mg/dL (70-105)
--- NOTE | 2019-10-06 13:06 | Cat Scan Report ---
CLINICAL INFORMATION: Left lower quadrant pain COMPARISON: Abdomen and pelvic CTs: 01/22/2017 and 02/22/2019 TECHNIQUE: Following enteric contrast, 80 cc of Isovue-370 were injected intravenously, and 60 seconds later, 0.625 mm helical slices were obtained from the mid heart through the subtrochanteric regions. Following reconstruction, 2.5 mm sagittal, coronal and axial reformatted images were processed and reviewed at bone, lung and soft tissue windows. Five minutes later, 0.625 mm helical slices were obtained from the mid heart through the kidneys and viewed at soft tissue windows.The exam was performed using radiation dose optimization techniques including, but not limited to, automated exposure control, adjustment of the mA and/or kV according to patient size and use of iterative reconstruction technique. FINDINGS: Lung bases show minimal atelectasis or scarring. There are no effusions. The visualized heart is borderline enlarged with bypass grafting appreciated. The distal esophagus is grossly normal Abdominal images show scattered simple cysts in the liver which demonstrate long-term stability. The gallbladder is surgically absent. The common hepatic and common bile duct are markedly dilated with the common bile duct diameter 16 mm. There is a 12.6 cm stone in the ampullary region of the common bile duct. Pancreatic duct is also moderately dilated 5 mm. The pancreatic parenchyma is unremarkable. Both kidneys, adrenal glands, spleen are normal. The aorta contains atherosclerotic plaque but is normal diameter. Celiac, SMA and GRISEL and renal arteries contains scattered plaque with no stenosis. Pelvic images show mild prostate enlargement which is stable. A 10 cm segment of mid sigmoid colon demonstrates are moderate eccentric wall thickening and multiple inflamed diverticuli with phlegmonous perisigmoid fat. There is no abscess or other complication. The inflamed sigmoid diverticula are adjacent to the urinary bladder dome which shows mild wall thickening - presumably sympathetic from the adjacent inflammation. The remaining colon, appendix small bowel stomach are normal. Bone windows show no osseous abnormality. IMPRESSION: 1. Moderate eccentric wall thickening of the mid sigmoid colon with multiple inflamed diverticuli and perisigmoid inflammation compatible with recurrent or chronic sigmoid diverticulitis. Findings are actually similar to the exam dating back to 2016. No abscess or other complication. Given the chronicity of the findings, suggest referral to general surgery in consultation for partial sigmoidectomy. The possibility of annular adenocarcinoma is possible but less likely 2. Mild wall thickening of the urinary bladder dome likely a sympathetic response to the adjacent inflamed sigmoid colon. 3. 10 mm stone, or less likely, soft tissue mass in the ampullary region of the common bile duct resulting in marked common bile duct dilatation. Suggest GI referral for ERCP and removal. Moderate dilatation of the pancreatic duct shows slight increase. 4. Scattered hepatic cysts - stable Interpreted and Authenticated by: Elie Liriano 10/06/19
[2019-10-06] MEDS ORDERED: PIPERACILLIN SODIUM/TAZOBACTAM 3.375 GM in DEXTROSE 5% IN WATER 50 ML IV ONE (14:27)
[2019-10-06] MEDS ORDERED: INDOMETHACIN 25 MG CAPSULE PO ONE (15:12)
[2019-10-06] MEDS ORDERED: NITROGLYCERIN 5 MG (0.2 MG/HR) PATCH TOPICAL ONE (15:13)
[2019-10-06] MEDS ORDERED: LACTATED RINGERS 1,000 ML IV SCH ×2 (15:15→16:00)
--- NOTE | 2019-10-06 15:21 | Internal Med History&Physical ---
Medical - H&P: HPI Patient information: Note initiated : 10/06/19 at 3:18 pm Service Date, if different from initiated Date: [] Patient: Jacquelin Red a 74 y/o M admitted on for Chills. Chief Complaint: [] History of present illness: Mr. Red is a 74 year old M Presents the ED with shaking chills. This started last night accompanied by some mild right upper quadrant achy pain. He has a history of diverticulitis recurrent and was worried that this was the case. In the ED he was found to be tachycardic and tachypneic. Pressure appeared to be stable. No leukocytosis but increased granulocytes. Lactate was 2.0. Is noted to have elevated AST ALT and alk phos. As well as a elevated procalcitonin. Imaging showed chronic diverticulitis findings but also found a 10 mm stone or mass in the ampullary region of the common bile duct causing marketed common bile duct dilatation. Case discussed with Dr. Cartagena who will perform ERCP today. Also had some nausea but no vomiting. Normal bowel movements with past 3 to 4 days. Does have a mild occasional cough from sinus drainage. But otherwise no other complaints. Review of Systems: Pertinent positives as above. Denies headache/vomiting/chest or abdominal pain/diarrhea. Remaining 10 point review of system reviewed negative Medical - H&P: PMH Medical history: Medical History (Last Reviewed 02/25/19 @ 13:12 by Geni Hillman CMA) History of tobacco use (Chronic) Cardiac LV ejection fraction 21-40% (Chronic) Hypertension, essential (Chronic) Acid reflux (Chronic) CAD (coronary artery disease) (Chronic) Cardiomyopathy (Chronic) Myocardial infarct, old (Chronic) Past Surgical History (Last Reviewed 02/25/19 @ 13:12 by Geni Hillman CMA) H/O colonoscopy (Chronic) H/O four vessel coronary artery bypass graft (Chronic) History of cholecystectomy (Chronic) Family History (Last Reviewed 02/25/19 @ 13:12 by Geni Hillman CMA) Father Heart attack Family/Other Heart attack Social History (Last Updated 03/01/19 @ 14:43 by Nahum Livingston MD) Patient quit smoking 30 years ago Drinks alcohol rarely Lives by himself Medical - H&P: Meds Home Medications Medication Instructions Recorded Confirmed Type carvedilol 6.25 mg tablet 6.25 mg PO BID #180 tab 06/23/18 02/25/19 Rx doxazosin 8 mg tablet 8 mg PO QDAY #90 tab 06/26/18 02/25/19 Rx omeprazole 20 mg capsule,delayed 20 mg PO QDAY cap 07/09/18 02/25/19 History release Acetaminophen/Diphenhydramine 1 tab PO HS PRN 12/31/18 02/25/19 History [Tylenol Pm] Arginine HCl [l-Arginine] 1 tab PO DAILY 12/31/18 02/25/19 History Sildenafil Citrate [Viagra] 100 mg PO PRN PRN 12/31/18 02/25/19 History Acetaminophen [Tylenol] 650 mg PO Q4-6HP PRN #60 tab 01/03/19 02/25/19 Rx Furosemide [Lasix] 20 mg PO Q48 #30 tab 01/03/19 02/25/19 Rx Losartan [Cozaar] 25 mg PO DAILY #30 tab 01/03/19 02/25/19 Rx Potassium Chloride [Kdur] 10 meq PO Q48 #30 tab 01/03/19 02/25/19 Rx Allergies Allergy/AdvReac Type Severity Reaction Status Date / Time OMID Inhibitors AdvReac Mild Cough Verified 02/25/19 13:11 Tcegqnh-Axa-Ypi Reductase AdvReac Mild hip and Verified 02/25/19 13:11 Inhibitor leg pain Medical - H&P: Exam - Constitutional Vitals: Temp Pulse Resp BP Pulse Ox 98.3 F 112 H 26 H 119/84 98 10/06/19 11:28 10/06/19 10:33 10/06/19 10:33 10/06/19 10:33 10/06/19 10:33 Exam: General: Alert, Awake, No acute Distress Eyes/N/T: EOMI, PERRL, dry MM Head/Neck: neck supple, normocephalic atraumatic CV: Mildly tachycardic but regular, No murmurs, normal s1/s2 Pulm: Clear b/l, no wheezing/rhonchi/rales Abd: soft, mild tenderness to palpation right upper quadrant, +BS x4 Ext: no clubbing/cyanosis/edema Neuro: Alert, no focal deficits, moves all extremities, CN 2-12 grossly intact, symmetrical strength b/l upper/lower, sensations intact b/l upper/lower Skin: warm/dry Medical - H&P: Reslt - Labs CBC & Chem 7: 10/06/19 11:05 10/06/19 11:05 Labs: Short CBC 10/06/19 Range/Units 11:05 WBC 7.9 (4.50-11.00) K/mcL Hgb 14.4 (13.7-17.5) g/dL Hct 44.5 (40.1-51.0) % Plt Count 219 (140-440) K/mcL BMP 10/06/19 11:05 Sodium 136 Potassium 4.4 Chloride 97 Carbon Dioxide 24 BUN 9 Creatinine 0.9 Glucose 101 Calcium 9.5 Liver Function 10/06/19 Range/Units 11:05 Total Bilirubin 0.9 (0.0-1.0) mg/dL AST 53 H (0-37) U/l ALT 132 H (0-40) U/l Alkaline Phosphatase 166 H (39-117) U/L Albumin 4.0 (3.2-5.2) gm/dL Medical - H&P: A/P - Narrative A/P Narrative: A: *Biliary obstruction with concern for developing early ascending cholangitis: -10mm stone/mass noted *SIRS with concern for early sepsis: -lactate 2.0, mildly elevated PCT *Chronic/recurrent diverticulitis: no LLQ abdominal pain -ED findings with moderate central wall thickening of the mid sigmoid colon and inflamed diverticuli, no abscess *h/o systolic CHF: on entresto -pt states last EF several months ago has increased from previous 30% *CAD w/cabg: on ASA/Statin/BB *HTN: *GERD: * P: -empiric Zosyn, -f/u PCT -Dr. Cabrera for ERCP -IVF's, npo - -f/u surgery regarding current diverticulitis -Clarify home medications and continue cardiac meds - -ppx: lovenox to start in AM full code
[2019-10-06] MEDS ORDERED: NITROGLYCERIN 0.6 MG/HR PATCH TD ONE (15:50)
[2019-10-06] MEDS ORDERED: PROPOFOL 200 MG/20 ML VIAL IV ONE (15:50)
[2019-10-06] MEDS ORDERED: MIDAZOLAM 2 MG/2 ML VIAL IV ONE (15:55)
[2019-10-06] MEDS ORDERED: PIPERACILLIN SODIUM/TAZOBACTAM 3.375 GM in DEXTROSE 5% IN WATER 50 ML IV SCH (15:57)
[2019-10-06] MEDS ORDERED: HYDROcodone/APAP 5/325MG TABLET PO PRN (15:57)
[2019-10-06] MEDS ORDERED: POTASSIUM CHLORIDE 20 MEQ TABLET PO PRN ×2 (15:57)
[2019-10-06] MEDS ORDERED: POTASSIUM CHLORIDE 40 MEQ in DEXTROSE 5% IN WATER 500 ML IV PRN (15:57)
[2019-10-06] MEDS ORDERED: POLYETHYLENE GLYCOL 3350 17 GM PACKET PO PRN (15:57)
[2019-10-06] MEDS ORDERED: ONDANSETRON 4 MG/2 ML VIAL IV PRN (15:57)
[2019-10-06] MEDS ORDERED: 0.9 % SODIUM CHLORIDE 1,000 ML IV SCH (15:57)
[2019-10-06] MEDS ORDERED: SENNOSIDES 1 TABLET PO PRN (15:57)
[2019-10-06] MEDS ORDERED: MAGNESIUM SULFATE 2 GM/50 ML BAG IV PRN (15:57)
[2019-10-06] MEDS ORDERED: ACETAMINOPHEN 325 MG TABLET PO PRN (15:57)
[2019-10-06] MEDS: LACTATED RINGERS 1,000 ML IV SCH ×2 (16:14→20:18)
[2019-10-06 16:17] LABS: Band Neutrophils % 5 % (0-10); Eosinophils % (Manual) 2 % (0-7); Lymphocytes % 5 % (15-49); Monocytes % (Manual) 2 % (1-12); Platelet Estimate NORMAL (NORMAL); RBC Morphology NORMAL (NORMAL); Segmented Neutrophils % 86 % (38-78)
[2019-10-06] MEDS ORDERED: PROPOFOL 20 ML IV ONE (16:35)
[2019-10-06] MEDS ORDERED: PROPOFOL 0 ML IV ONE (16:35)
[2019-10-06] MEDS ORDERED: MIDAZOLAM 2 MG/2 ML VIAL ONE (16:36)
[2019-10-06] MEDS ORDERED: IOPAMIDOL 50 ML BOTTLE IJ ONE (17:10)
[2019-10-06] MEDS ORDERED: LACTATED RINGERS 1,000 ML IV ONE (18:19)
[2019-10-06] MEDS ORDERED: LEVOFLOXACIN 500 MG/100 ML BAG IV ONE ×2 (18:21→18:27)
[2019-10-06] MEDS: PIPERACILLIN SODIUM/TAZOBACTAM 3.375 GM in DEXTROSE 5% IN WATER 50 ML IV SCH (20:21)
[2019-10-06] MEDS: CARVEDILOL 6.25 MG TABLET PO SCH (20:22)
[2019-10-06] MEDS ORDERED: PROCHLORPERAZINE 10 MG/2 ML VIAL IV PRN (20:34)
[2019-10-06] MEDS ORDERED: METOCLOPRAMIDE 10 MG/2 ML VIAL IV PRN (21:05)
[2019-10-06] MEDS: 0.9 % SODIUM CHLORIDE 10 ML SYRINGE IV SCH (21:48)
[2019-10-06] MEDS ORDERED: diphenhydrAMINE 25 MG CAPSULE PO PRN (22:29)
[2019-10-06] MEDS ORDERED: diphenhydrAMINE 25 MG CAPSULE ONE (22:31)
[2019-10-07] MEDS ORDERED: METOCLOPRAMIDE 10 MG/2 ML VIAL IV SCH
[2019-10-07] MEDS: LACTATED RINGERS 1,000 ML IV SCH ×3 (00:28→10:58)
[2019-10-07] MEDS: PIPERACILLIN SODIUM/TAZOBACTAM 3.375 GM in DEXTROSE 5% IN WATER 50 ML IV SCH ×4 (02:16→16:56)
[2019-10-07] MEDS: 0.9 % SODIUM CHLORIDE 10 ML SYRINGE IV SCH ×2 (05:23→16:58)
[2019-10-07] MEDS ORDERED: OMEPRAZOLE 20 MG CAPSULE PO SCH (07:30)
--- NOTE | 2019-10-07 07:31 | Internal Med Progress Note ---
Medical - PN: Subj Patient information: Note initiated : 10/07/19 at 7:29 am Service Date, if different from initiated Date: [] Patient: Jacquelin Red 74 y/o M admitted on 10/06/19 for Chills. Chief Complaint: [] Interval history: Mr. Red is a 74 year old M Presents the ED with shaking chills. This started last night accompanied by some mild right upper quadrant achy pain. He has a history of diverticulitis recurrent and was worried that this was the case. In the ED he was found to be tachycardic and tachypneic. Pressure appeared to be stable. No leukocytosis but increased granulocytes. Lactate was 2.0. Is noted to have elevated AST ALT and alk phos. As well as a elevated procalcitonin. Imaging showed chronic diverticulitis findings but also found a 10 mm stone or mass in the ampullary region of the common bile duct causing marketed common bile duct dilatation. Case discussed with Dr. Cartagena who will perform ERCP today. Also had some nausea but no vomiting. Normal bowel movements with past 3 to 4 days. Does have a mild occasional cough from sinus drainage. But otherwise no other c omplaints. 10/07 Feeling much better today. No overnight events or new complaints. No abdominal pain nausea vomiting Large stone removed by ERCP yesterday by [facility]. Review of Systems: denies headache/fever/chills/nausea/vomiting/chest or abdominal pain/cough/dyspnea/diarrhea. Otherwise see above. - Constitutional Vitals: Vital Signs Temp Pulse Resp BP Pulse Ox 99.4 F H 90 16 94/63 97 10/07/19 04:39 10/07/19 04:39 10/07/19 04:39 10/07/19 04:39 10/07/19 04:39 Period Temp Pulse Resp BP Sys/Shrestha Pulse Ox Last 24 Hr 97.8 F-99.4 F 73-112 14-26 80-119/52-84 92-99 Intake and Output 10/06/19 10/07/19 10/07/19 21:59 05:59 13:59 Intake Total 2098 2439 Balance 2098 2439 Weight 79.152 kg Intake & Output: Intake & Output 10/06/19 10/07/19 10/07/19 21:59 05:59 13:59 Intake Total 2098 2439 Balance 2098 2439 Weight 79.[place] [address] Sodium Chloride 0.9% 1,000 ml @ 1000 Wide Open IV BOLUS ONE Rx#: [id number] Lactated Ringers 1,000 ml @ 992 483 1386 mls/hr IV .Q8H E[facility]IDA Rx#: [id number] LEVAQUIN 500 mg In 100 ml @ 0 100 mls/hr IV .STK-MED ONE Rx#: [id number] Zosyn 3.375 gm In Dextrose 5% 50 100 in Water 50 ml @ 100 mls/hr IV Q6H ENE[facility] Rx#:[id number] Oral 240 IV - Manual Only 300 Other: # Voids 1 # Bowel Movements 1 Exam: General: Alert, Awake, No acute Distress Eyes/N/T: EOMI, Head/Neck: neck supple, CV: Mildly tachycardic but regular, No murmurs, Pulm: Clear b/l, no wheezing/rhonchi/rales Abd: soft, +BS x4 Ext: no clubbing/cyanosis/edema Neuro: Alert, no focal deficits, moves all extremities, Skin: warm/dry Medical - PN: Obj Da - Labs CBC & Chem 7: 10/07/19 05:32 10/06/19 11:05 Labs: Abnormal Lab Results 10/06/19 10/06/19 10/06/19 11:05 11:05 11:05 RDW 14.9 H Gran % 87.2 H Lymph % (Auto) 7.6 L Lymph # (Auto) 0.60 L Seg Neutrophils % 86 H Lymphocytes % 5 L POC Glucose 109 H AST 53 H ALT 132 H Alkaline Phosphatase 166 H Meds: Medications Acetaminophen (Tylenol) 650 mg PO Q6HP PRN PRN Reason: PAIN/FEVER > 101 Hydrocodone Bitart/Acetaminophen ([place] 5/325mg) 1 tab PO Q4HP PRN PRN Reason: PAIN LEVEL 3-6 Carvedilol (Coreg) 6.25 mg PO BIDCC PENDING SALE TO [facility] Last Admin: 10/06/19 20:22 Dose: Not Given Documented by: Diphenhydramine HCl (Benadryl) 25 mg PO HSP PRN PRN Reason: Insomnia Doxazosin Mesylate (Cardura) 8 mg PO QDAY PENDING SALE TO [facility] Enoxaparin Sodium (Lovenox) 40 mg SQ DAILY ENEIDA Furosemide (Lasix) 20 mg PO Q48 ENEIDA Potassium Chloride 40 meq/ (Dextrose) 520 mls @ 130 mls/hr IV UD PRN PRN Reason: Potassium < 3 Magnesium Sulfate (Magnesium Sulfate) 2 gm in 50 mls @ 50 mls/hr IV UD PRN PRN Reason: Magnesium </= 1.6 Lactated Ringer's (Lactated Ringers) 1,000 mls @ 125 mls/hr IV .Q8H PENDING SALE TO [facility] Last Admin: 10/07/19 05:23 Dose: 125 mls/hr Documented by: Piperacillin Sod/Tazobactam (Sod 3.375 gm/ Dextrose) 50 mls @ 100 mls/hr IV Q6H PENDING SALE TO [facility]; Protocol Last Admin: 10/07/19 05:23 Dose: 100 mls/hr Documented by: Metoclopramide HCl (Reglan) 5 mg IV Q6HP PRN PRN Reason: Nausea Omeprazole (Prilosec) 20 mg PO QAMAC PENDING SALE TO [facility] Ondansetron HCl (Zofran) 4 mg IV Q4HP PRN PRN Reason: Nausea And Vomiting Last Admin: 10/06/19 20:13 Dose: 4 mg Documented by: Polyethylene Glycol (Miralax) 17 gm PO DAILYP PRN PRN Reason: Constipation Potassium Chloride (Kdur) 40 meq PO UD PRN PRN Reason: Potssium is 3-3.5 Potassium Chloride (Kdur) 40 meq PO UD PRN PRN Reason: Potassium < 3 Prochlorperazine (Compazine) 5 mg IV Q4HP PRN PRN Reason: Nausea And Vomiting Last Admin: 10/06/19 22:18 Dose: 5 mg Documented by: Senna (Senokot) 2 tab PO DAILYP PRN PRN Reason: Constipation Sodium Chloride (Saline Flush) 10 ml IV Q8 ENEIDA Last Admin: 10/07/19 05:23 Dose: Not Given Documented by: Medical - PN: A/P - Time Spent With Patient Total time spent is greater than 50% in coordination of care (as documented) at patient's floor/unit and/or counseling patient: - Narrative A/P Narrative: A: *Biliary obstruction with concern for developing early ascending cholangitis: s/p ERCP with stone removal by Dr. Cabrera - *SIRS with concern for early sepsis: -lactate 2.0, mildly elevated PCT *Chronic/recurrent diverticulitis: no LLQ abdominal pain -ED findings with moderate central wall thickening of the mid sigmoid colon and inflamed diverticuli, no abscess *h/o systolic CHF: on entresto -pt states last EF several months ago has increased from previous 30% *CAD w/cabg: on ASA/Statin/BB *HTN: *GERD: * P: -empiric Zosyn, -f/u PCT -Dr. Cabrera following -on clear diet - -f/u surgery regarding recurrent diverticulitis -Clarify home medications and continue cardiac meds - -ppx: lovenox full code Medical - PN: Qual - VTE Deep Vein Thrombosis/Pulmonary Embolism Present on Admission: No
[2019-10-07 07:52] LABS: Basophils # (Auto) 0.01 K/mcL (0.00-0.30); Basophils % (Auto) 0.1 % (0.0-2.0); Eosinophils # (Auto) 0.03 K/mcL (0.00-0.70); Eosinophils % (Auto) 0.4 % (0.0-7.0); Hemoglobin 11.7 g/dL (13.7-17.5); Lymphocytes # (Auto) 0.63 K/mcL (1.50-4.80); Lymphocytes % (Auto) 8.8 % (15.5-49.0); Mean Cell Volume 88.9 fL (80.0-100.0); Mean Corpuscular HGB Conc 32.5 g/dL (31.0-36.0); Mean Platelet Volume 9.5 fL (7.4-10.4); Monocytes # (Auto) 1.05 K/mcL (0.10-0.90); Monocytes % (Auto) 14.7 % (1.0-12.0); Platelet Count 169 K/mcL (140-440); RBC 4.05 M/mcL (4.63-6.08); WBC 7.2 K/mcL (4.50-11.00)
[2019-10-07 08:32] LABS: ALT/SGPT 130 U/l (0-40); AST/SGOT 92 U/l (0-37); Albumin 3.1 gm/dL (3.2-5.2); Albumin/Globulin Ratio 1.2 (1.0-2.3); Alkaline Phosphatase 231 U/L (39-117); Bilirubin,Total 3.6 mg/dL (0.0-1.0); Blood Urea Nitrogen 9 mg/dl (8-23); Calcium 8.5 mg/dl (8.6-10.4); Carbon Dioxide 23 mmol/L (22-30); Chloride 104 mmol/L (96-108); Globulin 2.6 gm/dL (2.2-3.7); Glomerular Filtration Rate 84; Glucose 98 mg/dL (70-105); Lactate Dehydrogenase 158 U/L (94-250); Phosphorous 3.2 mg/dL (2.7-4.5); Triglycerides 83 mg/dl (<150); Uric Acid 3.2 mg/dL (2.5-8.0)
[2019-10-07] MEDS: CARVEDILOL 6.25 MG TABLET PO SCH ×2 (08:40→16:56)
[2019-10-07] MEDS ORDERED: DOXAZOSIN 4 MG TABLET PO SCH (09:00)
[2019-10-07] MEDS ORDERED: ENOXAPARIN 40 MG/0.4 ML SYRINGE SQ SCH (09:00)
--- NOTE | 2019-10-07 17:41 | Discharge Summary ---
Medical - DS: Prov Patient information: Note initiated : 10/07/19 at 5:37 pm Service Date, if different from initiated Date: [] Patient: Jacquelin Red 74 y/o M admitted on 10/06/19 for Chills. Date of admission: 10/06/19 15:41 Discharge date: 10/07/19 Primary care physician: Ac Burt Admitting clinician: Chavez Mcdonnell Consults: 10/06/19 Consult to Physician [CONS] Stat Comment: Consulting Provider: Chavez Mcdonnell Reason For Exam: Physician to Consult Consult to Physician [CONS] Stat Comment: Consulting Provider: Alex Cabrera Reason For Exam: Physician to Consult Discharging clinician: Ashlie Oneal Medical - DS: Meds - Discharge Medications Prescriptions: Ciprofloxacin [Cipro] 500 mg PO BID #9 tablet Active and Home Medications: Home Medications carvedilol 6.25 mg tablet 6.25 mg PO BID #180 tab 06/23/18 [Rx Confirmed 10/06/19 Last Taken 10/06/19 0700] doxazosin 8 mg tablet 8 mg PO QDAY #90 tab 06/26/18 [Rx Confirmed 10/06/19 Last Taken 10/05/19 21:00] omeprazole 20 mg capsule,delayed release 20 mg PO QDAY cap 07/09/18 [History Confirmed 10/06/19 Last Taken 10/06/19 07:00] Acetaminophen/Diphenhydramine [Tylenol Pm] 1 tab PO HS PRN 12/31/18 [History Confirmed 10/06/19 Last Taken 10/05/19] Arginine HCl [l-Arginine] 1 tab PO DAILY 12/31/18 [History Confirmed 10/06/19 Last Taken 10/06/19 07:00] Sildenafil Citrate [Viagra] 100 mg PO PRN PRN 12/31/18 [History Confirmed 10/06/19 Last Taken Unknown] Acetaminophen [Tylenol] 650 mg PO Q4-6HP PRN #60 tab 01/03/19 [Rx Confirmed 10/06/19 Last Taken 10/06/19 0300] Furosemide [Lasix] 20 mg PO Q48 #30 tab 01/03/19 [Rx Confirmed 10/06/19 Last Taken 09/06/19] Potassium Chloride [Kdur] 10 meq PO Q48 #30 tab 01/03/19 [Rx Confirmed 10/06/19 Last Taken Unknown] Medical - DS: Hosp Hospital Course: Mr. Red is a 74 year old M who presented to the ED with shaking chills. This started last night accompanied by some mild right upper quadrant achy pain. He has a history of diverticulitis recurrent and was worried that this was the case. In the ED he was found to be tachycardic and tachypneic. Pressure appeared to be stable. No leukocytosis but increased granulocytes. Lactate was 2.0. Is noted to have elevated AST ALT and alk phos. As well as a elevated procalcitonin. Imaging showed chronic diverticulitis findings but also found a 10 mm stone or mass in the ampullary region of the common bile duct causing marketed common bile duct dilatation. Case discussed with Dr. Cabrera who will perform ERCP today. Also had some nausea but no vomiting. Normal bowel movements with past 3 to 4 days. Does have a mild occasional cough from sinus drainage. But otherwise no other complaints. 10/07 Feeling much better today. No overnight events or new complaints. No abdominal pain nausea vomiting Large stone removed by ERCP yesterday by Osiel. By the afternoon of 10/07, the patient was tolerating advanced diet. He was seen in follow-up by Dr. Cabrera, who felt he could be discharged home. He will follow-up with Dr. Cartagena's office in 1 week and continue for further days of antibiotics with a fluoroquinolone. Patient has ciprofloxacin on hand at home, will continue with that. Discharge diagnosis: Choledocholithiasis - Time Spent with Patient Total time spent providing and/or coordinating discharge services: Less than 30 minutes Medical - DS: Exam - Constitutional Vitals: Vital Signs Temp Pulse Pulse Resp BP BP Pulse Ox 10/07/19 12:00 97.4 F 76 18 122/69 95 10/07/19 08:07 97 10/07/19 08:00 97.5 F 70 16 128/75 97 10/07/19 04:39 99.4 F H 90 16 94/63 97 10/06/19 22:35 97.8 F 80 18 118/67 96 10/06/19 20:14 98.5 F 74 116/73 95 10/06/19 19:44 74 112/72 95 10/06/19 19:14 76 94/60 94 10/06/19 18:59 73 89/57 95 10/06/19 18:44 74 87/57 10/06/19 18:38 14 96 10/06/19 18:29 76 87/56 94 10/06/19 18:14 80 80/52 10/06/19 18:07 98.2 F 85 16 91/64 98 10/06/19 17:52 98.2 F 87 18 90/64 10/06/19 17:51 98.2 F 89 20 86/70 96 10/06/19 17:45 98.2 F 93 H 21 86/70 99 10/06/19 17:40 90 22 84/61 98 Intake and Output 10/07/19 10/07/19 10/07/19 05:59 13:59 21:59 Intake Total 2490 50 Balance 2490 50 Intake: IV 2250 50 Lactated Ringers 1,000 ml @ 125 2000 mls/hr IV .Q8H [facility] Rx#: [id number] LEVAQUIN 500 mg In 100 ml @ 0 100 mls/hr IV .STK-MED ONE Rx#: [id number] Zosyn 3.375 gm In Dextrose 5% 150 50 in Water 50 ml @ 100 mls/hr IV Q6H ENEIDA Rx#:[id number] Oral 240 Other: Meal Lunch Percent of Meal Consumed 100% Feeding Ability Independent Urine Appearance Clear Urine Odor Normal # Voids 1 # Bowel Movements 1 Weight 174 lb 8 oz Patient Weight 10/08/19 05:59 Weight 174 lb 8 oz Additional comments: General: No acute distress Chest: Clear Cardiovascular: Regular rate and rhythm, no edema Abdomen: Soft, no right upper quadrant tenderness, active bowel sounds Neuro: Alert, oriented x3, nonfocal Medical - DS: Data Procedures and tests throughout hospitalization: ERCP by Dr. Cabrera on 10/06/2019 Labs on day of discharge: Labs from last 24 hours 10/07/19 10/07/19 10/07/19 05:32 05:32 05:32 WBC RBC Hgb Hct MCV MCH MCHC RDW Plt Count MPV Gran % Lymph % (Auto) [place] % (Auto) Eos % (Auto) Baso % (Auto) Gran # Lymph # (Auto) [place] # (Auto) Eos # (Auto) Baso # (Auto) Sodium 141 Potassium 3.8 Chloride 104 Carbon Dioxide 23 Anion Gap 14.0 BUN 9 Creatinine 0.9 GFR Calculation 84 Glucose 98 Uric Acid 3.2 Calcium 8.5 L Phosphorus 3.2 Magnesium 1.8 Total Bilirubin 3.6 H Direct Bilirubin 3.0 H GGT 327 H AST 92 H ALT 130 H Alkaline Phosphatase 231 H Lactate Dehydrogenase 158 Total Protein 5.7 L Albumin 3.1 L Globulin 2.6 Albumin/Globulin Ratio 1.2 Triglycerides 83 Lipase 34 Procalcitonin 1.89 10/07/19 05:32 WBC 7.2 RBC 4.05 L Hgb 11.7 L Hct 36.0 L MCV 88.9 MCH 28.9 MCHC 32.5 RDW 15.0 H Plt Count 169 MPV 9.5 Gran % 76.0 Lymph % (Auto) 8.8 L [place] % (Auto) 14.7 H Eos % (Auto) 0.4 Baso % (Auto) 0.1 Gran # 5.44 Lymph # (Auto) 0.63 L [place] # (Auto) 1.05 H Eos # (Auto) 0.03 Baso # (Auto) 0.01 Sodium Potassium Chloride Carbon Dioxide Anion Gap BUN Creatinine GFR Calculation Glucose Uric Acid Calcium Phosphorus Magnesium Total Bilirubin Direct Bilirubin GGT AST ALT Alkaline Phosphatase Lactate Dehydrogenase Total Protein Albumin Globulin Albumin/Globulin Ratio Triglycerides Lipase Procalcitonin - Imaging and Cardiology CT scan - abdomen Additional comments: IMPRESSION: 1. Moderate eccentric wall thickening of the mid sigmoid colon with multiple inflamed diverticuli and perisigmoid inflammation compatible with recurrent or chronic sigmoid diverticulitis. Findings are actually similar to the exam dating back to 2017. No abscess or other complication. Given the chronicity of the findings, suggest referral to general surgery in consultation for partial sigmoidectomy. The possibility of annular adenocarcinoma is possible but less likely 2. Mild wall thickening of the urinary bladder dome likely a sympathetic response to the adjacent inflamed sigmoid colon. 3. 10 mm stone, or less likely, soft tissue mass in the ampullary region of the common bile duct resulting in marked common bile duct dilatation. Suggest GI referral for ERCP and removal. Moderate dilatation of the pancreatic duct shows slight increase. 4. Scattered hepatic cysts - stable Chest x-ray Additional comments: IMPRESSION: Minor bibasilar atelectasis. Medical - DS: A/P - Patient/Caregiver Discharge Instructions Activity: increase activity as tolerated Diet: Regular Diet Additional Instructions: Begin taking the ciprofloxacin you still have at home, with the first dose this evening (10/07/2019) Take ciprofloxacin twice daily through the end of 10/11/2019 (a total of 9 doses) - Follow up Plan Follow up with: Ac Burt MD [Primary Care Provider] - Alex Cabrera MD [Physician] - 10/18/19 3:00 pm Disposition: Home, Self-Care Prognosis: Good Rehab Potential: Good Overall status at discharge: patient is back to baseline Medical - DS: Qual - VTE Deep Vein Thrombosis/Pulmonary Embolism Present on Admission: No
[2019-10-08] MEDS ORDERED: FUROSEMIDE 20 MG TABLET PO SCH (09:00)
--- NOTE | 2019-10-14 14:09 | ERCP Procedure Note ---
ERCP Procedure Notes - Procedure Information Patient information: Note initiated : 10/14/19 at 2:05 pm Service Date: 10/06/19 Patient: Jacquelin Red 74 y/o M admitted on 10/06/19 for Chills. Pre-op diagnosis general: Common bile duct stone. Post-op diagnosis general: Common bile duct stone. Procedure: ERCP Procedure narrative: The procedures, alternatives and risks were discussed with the patient and the patient's questions were answered. With endoscopist-administered intravenous sedation, the Olympus side viewing operating duodenoscope was introduced into the esophagus. A hiatal hernia was seen. The scope was advanced to the second part of the duodenum without difficulty. The ampulla of Vater was cannulated and papillotomy was performed. The bile duct was selectively cannulated taking care to avoid the pancreatic duct and cholangiogram obtained. The bile duct was markedly dilated and obstructed with a large 1 cm common duct stone. Stone was extracted with balloon techniques. At the end of the procedure, the bile duct appeared to be cleared of all stones. The scope was withdrawn. Assessment: Common bile duct stone.
--- NOTE | 2019-11-17 08:19 | XRay Report ---
CLINICAL INFORMATION: Common bile duct stone COMPARISON: None. FINDINGS: Common bile duct was injected demonstrating marked dilatation due to a large (1 cm) common bile duct stone near the ampulla. The stone was successfully extracted with balloon catheter IMPRESSION: 1 cm stone in the distal common bile duct resulting in marked biliary dilatation. The stone was successfully extracted with balloon catheter. Interpreted and Authenticated by: Elie Liriano 11/17/19
== END 2019-10-07 19:05 | disposition home or self-care (01) | DRG 445 ==
LOC: ED 10:30 → MEDSUR 15:41
PROVIDERS: ADMIT Internal Medicine; ATTEND Internal Medicine

== ENCOUNTER 2020-04-25 10:35 | Inpatient (IN) ==
[2020-04-25] MEDS ORDERED: IOPAMIDOL 100 ML BOTTLE IV ONE (10:36)
--- NOTE | 2020-04-25 10:56 | Emergency Department Note ---
Abdominal Pain HPI General Chief Complaint: Abdominal Pain Stated Complaint: abdominal pain Time Seen by Provider: 04/25/20 12:16 Source: patient Mode of arrival: ambulatory Limitations: no limitations History of Present Illness HPI Narrative: This pleasant 74-year-old gentleman comes to the emergency room with symptoms of chills last evening and some sweatiness as well as some abdominal cramping. He has had some chills off and on over the past 2 weeks. He has had some crampiness here last several days with his last bowel movement this morning but it was very small. He tried some ice cream last night which usually will help him to have a bowel movement, i.e. milk products, but it did not do much this time. In the past he had had multiple episodes that were attributed to diverticulitis but then a stone was found and in September in his bile duct (common) and was able to be removed by Dr. Cartagena. Possibility of recurrences of blockages was mention to him and he was given leftover doses of ciprofloxacin which he began 6 days ago 500 mg twice daily. He has had chills off and on in these past several weeks as well. He has not checked his fever specifically but it felt like it broke during the night when he broke into the sweat. No other source or signs per se. Discomfort of his abdominal cramping is in the mid and lower areas. Related Data Home Medications Medication Instructions Recorded Confirmed omeprazole 20 mg capsule,delayed 20 mg PO QDAY cap 07/09/18 04/25/20 release arginine HCl (L-arginine) 1 tab PO DAILY 12/31/18 04/25/20 sildenafil 100 mg PO PRN PRN 12/31/18 04/25/20 doxazosin 8 mg PO QHS 04/25/20 04/25/20 sacubitril-valsartan [Entresto] 1 tab PO BID 04/25/20 04/25/20 Previous Rx's Medication Instructions Recorded carvedilol 6.25 mg tablet 6.25 mg PO BID #180 tab 06/23/18 ciprofloxacin HCl 500 mg PO BID #9 tab 10/07/19 Allergies Allergy/AdvReac Type Severity Reaction Status Date / Time OMID Inhibitors AdvReac Mild Cough Verified 04/25/20 10:38 Ahklmcg-Lih-Yic Reductase AdvReac Mild hip and Verified 09/15/20 10:38 Inhibitor leg pain Review of Systems ROS ROS Narrative: No chest pain No cough or shortness of breath No nausea or vomiting or hematochezia No dysuria, frequency No back pain No headache or dizziness. Feels some weakness generalized. No anxiety or depression. [facility] Medical/Surgical/Family History All Active Problems (Updated 04/25/20 @ 16:51 by Anton Delarosa MD) Diverticulitis large intestine w/o perforation or abscess w/o bleeding (Acute) Hx of adenomatous colonic polyps (Chronic) Diverticulitis of sigmoid colon (Acute) Rigors (Acute) Erectile dysfunction (Chronic) CHF (congestive heart failure) (Acute) Heart failure, systolic, with acute decompensation (Acute) Cardiomyopathy as manifestation of underlying disease (Acute) Constipation by delayed colonic transit (Acute) Back pain (Chronic) Peyronie's Disease (Chronic) History of tobacco use (Chronic) Cardiac LV ejection fraction 21-40% (Chronic) Hypertension, essential (Chronic) Acid reflux (Chronic) CAD (coronary artery disease) (Chronic) Cardiomyopathy (Chronic) Myocardial infarct, old (Chronic) Medical History (Updated 04/25/20 @ 16:51 by Anton Delarosa MD) Acid reflux (Chronic) Adynamic ileus (Inactive) CAD (coronary artery disease) (Chronic) Cardiac LV ejection fraction 21-40% (Chronic) Cardiomyopathy (Chronic) Choledocholithiasis with obstruction (Resolved) Diverticulitis (Inactive) Diverticulitis of sigmoid colon (Inactive) Diverticulitis of sigmoid colon (Inactive) Erectile dysfunction (Chronic) Chart indicates he is on sildenafil for ED (noted 04/25/2020) Facial basal cell cancer (Resolved) History of tobacco use (Chronic) Hx of adenomatous colonic polyps (Chronic) tubular; sessile Hypertension, essential (Chronic) Myocardial infarct, old (Chronic) Sepsis (Inactive) Small bowel obstruction (Resolved) Surgical History (Updated 04/25/20 @ 16:35 by Anton Delarosa MD) H/[facility] (Chronic) [facility] 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 History of cholecystectomy (Chronic) 07/2014 S/P ERCP (Acute) Family History Father Heart attack Family/Other Heart attack Uncles Social History Smoking Status: Former smoker Alcohol Intake Frequency: a few times a month Substance Use: does not use Exam Narrative Narrative: Narrative: General Limitations: no limitations General appearance: alert, in no apparent distress and nontoxic Head Head: atraumatic and normocephalic Eye Eye: Present normal appearance, PERRL and EOMI ENT ENT: Present normal oropharynx and mucous membranes moist Neck Neck: Present trachea midline; Absent lymphadenopathy and thyromegaly Chest Chest: Present symmetric chest wall rise Respiratory Respiratory: Present normal lung sounds bilaterally; Absent respiratory distress, rales/crackles, wheezes, stridor, accessory muscle use and prolonged expiratory phase Cardiovascular Cardiovascular: Present regular rate and normal rhythm; Absent systolic murmur and diastolic murmur Adbominal Abdominal: Present soft and tenderness (Moderate in the lower quadrants bilaterally.); Absent distention, guarding, rebound, rigidity, organomegaly and mass Extremities Extremities: Present normal capillary refill; Absent pedal edema, pretibial edema, calf tenderness and cyanosis Back Back: Absent CVA tenderness (R), CVA tenderness (L) and spinous process tenderness Neurological Neurological: Present alert and oriented X3 Psychiatric Psychiatric: Present normal affect, polite, pleasant and other (appreciative); Absent depressed, agitated, anxious and poor eye contact Skin Skin: Present warm and dry; Absent cyanosis and pallor Course Vital Signs Vital signs: Vital Signs Temperature 97.7 F 04/25/20 10:36 Pulse Rate 75 04/25/20 10:36 Respiratory Rate 18 04/25/20 10:36 Blood Pressure 135/81 04/25/20 10:36 Pulse Oximetry (%) 99 04/25/20 10:36 Temperature 98.5 F 04/26/20 08:00 Pulse Rate 77 04/26/20 08:00 Respiratory Rate 18 04/26/20 08:00 Blood Pressure 116/70 04/26/20 08:00 Pulse Oximetry (%) 96 04/26/20 08:00 [facility] Narrative Medical decision making narrative: 10:44 AM - history of choledocholithiasis as well as diverticulitis having chills off and on for a couple of weeks. Has been on Cipro for 6 days without improvements. We will go ahead with labs and because of abdominal pain CT abdomen and pelvis with contrast. 11:36 AM - EKG demonstrates normal sinus rhythm with a first-degree AV block. No ACS. Slightly prolonged QRS yielding IVCD. Some inferior and V6 mild flattening of the T waves but with low voltage probably nonspecific or within normal. Very similar to EKG of 10/24/2016. 12:16 PM - nursing reports that patient is having shakes/rigors currently. We will go ahead and draw blood cultures and give acetaminophen. Labs are pending. Considering antibiotics. 1:23 PM - call from radiologist. Patient has diverticulitis in the sigmoid colon, recurrent with some worsening thickening of the bowel wall and possible worsening erosion of the anterior colon area with an area about 8 x 13 cm with some stool which seems to also be worse than previously. There is some intrahepatic bile duct air but this would not be unusual if patient is post p apillotomy which it sounds like he was from September. No stone noted. 1:35 PM - again patient has abdominal discomforts but they seem to be relatively mild-moderate, no rebound, negative heel tap. He is agreeable to have me speak with surgeon. 1:44 PM - I spoke with Dr. Penn, general surgeon, he will come in and see patient. I informed him of the Zosyn that patient has received as well as blood cultures. Given patient's cardiac history will speak with the hospitalist also for admission. I spoke with hospitalist who is agreeable. He will discuss with the surgeon which antibiotic to use longer-term with him. Lab Data Result diagrams: 04/26/20 05:20 04/26/20 05:20 Labs: Lab Results 04/25/20 04/25/20 04/25/20 Range/Units 11:18 11:18 11:26 WBC 12.1 H (4.50-11.00) K/mcL RBC 4.73 (4.63-6.08) M/mcL Hgb 13.7 (13.7-17.5) g/dL Hct 42.4 (40.1-51.0) % MCV 89.6 (80.0-100.0) fL MCH 29.0 (26.0-34.0) pg MCHC 32.3 (31.0-36.0) g/dL RDW 14.2 (11.5-14.5) % Plt Count 239 (140-440) K/mcL MPV 8.6 (7.4-10.4) fL Gran % 76.9 (38.0-78.0) % Lymph % (Auto) 11.2 L (15.5-49.0) % Norman % (Auto) 11.1 (1.0-12.0) % Eos % (Auto) 0.5 (0.0-7.0) % Baso % (Auto) 0.3 (0.0-2.0) % Gran # 9.31 H (1.80-8.00) K/mcL Lymph # (Auto) 1.36 L (1.50-4.80) K/mcL Norman # (Auto) 1.34 H (0.10-0.90) K/mcL Eos # (Auto) 0.06 (0.00-0.70) K/mcL Baso # (Auto) 0.04 (0.00-0.30) K/mcL VBG Lactic Acid 1.2 (0.5-2.0) mmol/L Sodium 136 (133-145) mmol/L Potassium 4.1 (3.3-5.1) mmol/L Chloride 101 (96-108) mmol/L Carbon Dioxide 22 (22-30) mmol/L Anion Gap 13.0 (8-16) BUN 11 (8-23) mg/dl Creatinine 0.9 (0.7-1.2) mg/dl POC Creatinine 1.0 (0.7-1.2) mg/dl GFR Calculation 84 Glucose 89 (70-105) mg/dL Calcium 9.0 (8.6-10.4) mg/dl Total Bilirubin 0.5 (0.0-1.0) mg/dL AST 10 (0-37) U/l ALT 10 (0-40) U/l Alkaline Phosphatase 61 (39-117) U/L Total Protein 6.5 (5.9-8.4) gm/dL Albumin 3.5 (3.2-5.2) gm/dL Globulin 3.0 (2.2-3.7) gm/dL Albumin/Globulin Ratio 1.2 (1.0-2.3) Lipase 23 (7-60) U/L Urine Color Urine Appearance Urine pH (5.0-9.0) Ur Specific Callery (1.000-1.035) Urine Protein (NEG) mg/dL Urine Glucose (UA) (NEG) mg/dL Urine Ketones (NEG) mg/dL Urine Occult Blood (<0.03) mg/dL Urine Nitrate (NEG) Urine Bilirubin (NEG) mg/dL Urine Urobilinogen (NEG) mg/dL Ur Leukocyte Esterase (NEG) /uL Ur Culture Indicated? 04/25/20 Range/Units 15:35 WBC (4.50-11.00) K/mcL RBC (4.63-6.08) M/mcL Hgb (13.7-17.5) g/dL Hct (40.1-51.0) % MCV (80.0-100.0) fL MCH (26.0-34.0) pg MCHC (31.0-36.0) g/dL RDW (11.5-14.5) % Plt Count (140-440) K/mcL MPV (7.4-10.4) fL Gran % (38.0-78.0) % Lymph % (Auto) (15.5-49.0) % Norman % (Auto) (1.0-12.0) % Eos % (Auto) (0.0-7.0) % Baso % (Auto) (0.0-2.0) % Gran # (1.80-8.00) K/mcL Lymph # (Auto) (1.50-4.80) K/mcL Norman # (Auto) (0.10-0.90) K/mcL Eos # (Auto) (0.00-0.70) K/mcL Baso # (Auto) (0.00-0.30) K/mcL VBG Lactic Acid (0.5-2.0) mmol/L Sodium (133-145) mmol/L Potassium (3.3-5.1) mmol/L Chloride (96-108) mmol/L Carbon Dioxide (22-30) mmol/L Anion Gap (8-16) BUN (8-23) mg/dl Creatinine (0.7-1.2) mg/dl POC Creatinine (0.7-1.2) mg/dl GFR Calculation Glucose (70-105) mg/dL Calcium (8.6-10.4) mg/dl Total Bilirubin (0.0-1.0) mg/dL AST (0-37) U/l ALT (0-40) U/l Alkaline Phosphatase (39-117) U/L Total Protein (5.9-8.4) gm/dL Albumin (3.2-5.2) gm/dL Globulin (2.2-3.7) gm/dL Albumin/Globulin Ratio (1.0-2.3) Lipase (7-60) U/L Urine Color Yellow Urine Appearance Clear Urine pH 6.0 (5.0-9.0) Ur Specific Callery 1.025 (1.000-1.035) Urine Protein Neg (NEG) mg/dL Urine Glucose (UA) Negative (NEG) mg/dL Urine Ketones Neg (NEG) mg/dL Urine Occult Blood Neg (<0.03) mg/dL Urine Nitrate Neg (NEG) Urine Bilirubin Neg (NEG) mg/dL Urine Urobilinogen Neg (NEG) mg/dL Ur Leukocyte Esterase Neg (NEG) /uL Ur Culture Indicated? No Discharge Plan Patient/Caregiver Discharge Instructions Pt seen by PRINCIPAL BIOINFORMATICS SPECIALIST/PA only: No Clinical Impression: Diverticulitis of sigmoid colon, Rigors Patient Disposition: Xfer As Inpt ([facility]) Discharge Date/Time: 04/25/20 16:09
[2020-04-25] MEDS ORDERED: 0.9 % SODIUM CHLORIDE 500 ML IV ONE (11:04)
[2020-04-25 12:16] LABS: Basophils # (Auto) 0.04 K/mcL (0.00-0.30); Basophils % (Auto) 0.3 % (0.0-2.0); Eosinophils # (Auto) 0.06 K/mcL (0.00-0.70); Eosinophils % (Auto) 0.5 % (0.0-7.0); Granulocytes % (Auto) 76.9 % (38.0-78.0); Hematocrit 42.4 % (40.1-51.0); Hemoglobin 13.7 g/dL (13.7-17.5); Lymphocytes # (Auto) 1.36 K/mcL (1.50-4.80); Lymphocytes % (Auto) 11.2 % (15.5-49.0); Mean Cell Volume 89.6 fL (80.0-100.0); Mean Corpuscular HGB Conc 32.3 g/dL (31.0-36.0); Mean Platelet Volume 8.6 fL (7.4-10.4); Monocytes # (Auto) 1.34 K/mcL (0.10-0.90); Monocytes % (Auto) 11.1 % (1.0-12.0); Platelet Count 239 K/mcL (140-440); RBC 4.73 M/mcL (4.63-6.08); Red Cell Distribution Width 14.2 % (11.5-14.5); WBC 12.1 K/mcL (4.50-11.00)
[2020-04-25] MEDS ORDERED: ACETAMINOPHEN 325 MG TABLET PO ONE (12:18)
[2020-04-25] MEDS ORDERED: PIPERACILLIN SODIUM/TAZOBACTAM 3.375 GM in DEXTROSE 5% IN WATER 50 ML IV ONE (12:39)
[2020-04-25 12:40] LABS: ALT/SGPT 10 U/l (0-40); AST/SGOT 10 U/l (0-37); Albumin 3.5 gm/dL (3.2-5.2); Albumin/Globulin Ratio 1.2 (1.0-2.3); Alkaline Phosphatase 61 U/L (39-117); Bilirubin,Total 0.5 mg/dL (0.0-1.0); Blood Urea Nitrogen 11 mg/dl (8-23); Carbon Dioxide 22 mmol/L (22-30); Chloride 101 mmol/L (96-108); Glomerular Filtration Rate 84; Glucose 89 mg/dL (70-105)
--- NOTE | 2020-04-25 13:29 | Cat Scan Report ---
History: Diverticulitis, chills, rigors and abdominal pain TECHNIQUE: The patient was imaged following oral and intravenous contrast scanning from the diaphragm to the symphysis pubis. Sagittal and coronal reformats were created. The radiation exposure was limited using dose reduction technology. FINDINGS:6 there are multiple scattered small cysts throughout the liver. The cysts are chronic stable finding. There is a moderate amount of gas within the intrahepatic bile ducts and there is also gas in the common hepatic duct. Common hepatic duct measures up to 1.5 cm. In the head of the pancreas and common bile duct is 1.3 cm. The gallbladder surgically absent. There is no fluid collection in gallbladder fossa. The gas within the bile ducts is new since prior CT done on 10/06/19. The dilatation of the bile ducts is a chronic stable finding. There appeared to have been a mass in the distal common bile duct on the prior CT which is no longer present. Has the patient had a sphincterotomy performed since September 2019? There are few calcified granulomata within a normal-sized spleen. No abnormality is seen in the pancreas or adrenals. There is a heterogeneous cortical based low-attenuation mass located anteriorly in the lower pole the left kidney. Measures 1 x 1.5 cm. It measured 8 x 9 mm on the prior study. The attenuation of this nodule suggests it contains fluid and is therefore most likely a cyst. Kidneys are otherwise normal. There is a large amount calcified plaque along the wall of normal caliber aorta and common iliac arteries. The oral contrast has passed through stomach and normal small intestine to the distal ileum without obstruction. The appendix is noninflamed. There is a moderate amount stool throughout the colon. Arising from the sigmoid colon there is a complex thick-walled collection 7 x 7 x 13 cm. There is a loop of sigmoid colon being displaced superiorly and posteriorly from this extraluminal collection. The wall of this collection measures up to 1.3 cm. This collection does connect with the sigmoid colon both proximally and distally. There is inflammation of the surrounding fat and there is obliteration of fat plane between this collection and the adjacent dome of the bladder. This lesion was present on the prior study done on 10/06/19. It Previously measured 5.8 x 8.8 cm. There are diverticula in the adjacent sigmoid colon. There is no ascites is present. There is no free intraperitoneal air. No adenopathy is present. IMPRESSION: Severe chronic sigmoid diverticulitis with a walled off stool-containing collection above the bladder and arising from the mid sigmoid colon. Dr. Bai was called with the results Interpreted and Authenticated by: Luis Ramos 04/25/20
--- NOTE | 2020-04-25 15:01 | Internal Med History&Physical ---
HPI History of Present Illness Patient information: Note initiated : 04/25/20 at 2:55 pm Service Date, if different from initiated Date: [] Patient: Jacquelin Red a 74 y/o M admitted on for abdominal pain. Chief Complaint: [] History of present illness: Mr. Red is a 74 year old M with a history of diverticulitis/hypertension who was in his baseline state of health until roughly 3 weeks palpitation started noticing increasing weakness, malaise, lower abdominal discomfort without major changes in bowel habit. Patient started experiencing chills and fever 12 hours prior to presentation along with increasing abdominal pain 6 out of 10 to 8 out of 10 associated cramping. Patient endorses to trying ice cream to help relieve his symptoms but only made worse. With above symptoms he presents to the ER. Initial work-up was consistent with acute diverticulitis, white count 12,000. Cultures were drawn and patient was started on antibiotics. Surgery was consulted and requested hospitalization and hospitalist service was consulted At the time of evaluation patient is alert and oriented. He was able to answer most of the questions. He denies recent weight loss. His last hospitalization was in September for choledocholithiasis with successfully underwent ERCP and resolution of symptoms. He has been otherwise fairly healthy. His last episode of diverticulitis was 2018 and was treated with almost 8 weeks of ciprofloxacin and Flagyl under care of Dr. Livingston surgery. He denies chest pain, bloody stool, dysuria, lightheadedness dizziness. Review of systems 10 point review of system was performed and is negative except for ones cussed above PFSH PFSH All Active Problems (Updated 04/25/20 @ 16:51 by Anton Delarosa MD) Diverticulitis large intestine w/o perforation or abscess w/o bleeding (Acute) Hx of adenomatous colonic polyps (Chronic) Diverticulitis of sigmoid colon (Acute) Rigors (Acute) Erectile dysfunction (Chronic) CHF (congestive heart failure) (Acute) Heart failure, systolic, with acute decompensation (Acute) Cardiomyopathy as manifestation of underlying disease (Acute) Constipation by delayed colonic transit (Acute) Back pain (Chronic) Peyronie's Disease (Chronic) History of tobacco use (Chronic) Cardiac LV ejection fraction 21-40% (Chronic) Hypertension, essential (Chronic) Acid reflux (Chronic) CAD (coronary artery disease) (Chronic) Cardiomyopathy (Chronic) Myocardial infarct, old (Chronic) Medical History (Updated 04/25/20 @ 16:51 by Anton Delarosa MD) Acid reflux (Chronic) Adynamic ileus (Inactive) CAD (coronary artery disease) (Chronic) Cardiac LV ejection fraction 21-40% (Chronic) Cardiomyopathy (Chronic) Choledocholithiasis with obstruction (Resolved) Diverticulitis (Inactive) Diverticulitis of sigmoid colon (Inactive) Diverticulitis of sigmoid colon (Inactive) Erectile dysfunction (Chronic) Chart indicates he is on sildenafil for ED (noted 04/25/2020) Facial basal cell cancer (Resolved) History of tobacco use (Chronic) Hx of adenomatous colonic polyps (Chronic) tubular; sessile Hypertension, essential (Chronic) Myocardial infarct, old (Chronic) Sepsis (Inactive) Small bowel obstruction (Resolved) Surgical History (Updated 04/25/20 @ 16:35 by Anton Delarosa MD) H/[facility] (Chronic) [facility] 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 History of cholecystectomy (Chronic) 07/2014 S/P ERCP (Acute) Family History Father Heart attack Family/Other Heart attack Uncles Social History marital status: single smoking status: Former smoker alcohol intake frequency: a few times a month substance use type: does not use MEDS/ALLERGIES Home Medications and Allergies Home Medications Medication Instructions Recorded Confirmed Type carvedilol 6.25 mg tablet 6.25 mg PO BID #180 tab 06/23/18 04/25/20 Rx omeprazole 20 mg capsule,delayed 20 mg PO QDAY cap 07/09/18 04/25/20 History release arginine HCl (L-arginine) 1 tab PO DAILY 12/31/18 04/25/20 History sildenafil 100 mg PO PRN PRN 12/31/18 04/25/20 History ciprofloxacin HCl 500 mg PO BID #9 tab 10/07/19 04/25/20 Rx doxazosin 8 mg PO QHS 04/25/20 04/25/20 History sacubitril-valsartan [Entresto] 1 tab PO BID 04/25/20 04/25/20 History Allergies Allergy/AdvReac Type Severity Reaction Status Date / Time OMID Inhibitors AdvReac Mild Cough Verified 04/25/20 10:38 Shanmwl-Nqu-Wuc Reductase AdvReac Mild hip and Verified 04/25/20 10:38 Inhibitor leg pain EXAM Constitutional Vitals: Temp Pulse Resp BP Pulse Ox 99.9 F H 85 32 H 113/78 97 04/25/20 14:47 04/25/20 14:31 04/25/20 14:31 04/25/20 14:15 04/25/20 14:31 Head normocephalic Oral cavity moist No ear nose discharge Eye movement symmetrical Neck supple no lymphadenopathy S1-S2 tachycardia Nonlabored breathing rapid Suprapubic and left lower quadrant tenderness on deep palpation no rebound Lower extremity no cyanosis clubbing or joint swelling Skin no suspicious lesion Psych anxious but alert cooperative Neuro normal higher function DATA Data Completed and Pending Labs: Labs from last 24 hours 04/25/20 04/25/20 04/25/20 11:26 11:18 11:18 WBC 12.1 H RBC 4.73 Hgb 13.7 Hct 42.4 MCV 89.6 MCH 29.0 MCHC 32.3 RDW 14.2 Plt Count 239 MPV 8.6 Gran % 76.9 Lymph % (Auto) 11.2 L Amelia % (Auto) 11.1 Eos % (Auto) 0.5 Baso % (Auto) 0.3 Gran # 9.31 H Lymph # (Auto) 1.36 L Amelia # (Auto) 1.34 H Eos # (Auto) 0.06 Baso # (Auto) 0.04 VBG Lactic Acid 1.2 Sodium 136 Potassium 4.1 Chloride 101 Carbon Dioxide 22 Anion Gap 13.0 BUN 11 Creatinine 0.9 POC Creatinine 1.0 GFR Calculation 84 Glucose 89 Calcium 9.0 Total Bilirubin 0.5 AST 10 ALT 10 Alkaline Phosphatase 61 Total Protein 6.5 Albumin 3.5 Globulin 3.0 Albumin/Globulin Ratio 1.2 Lipase 23 A/P Narrative A/P Narrative: * Acute diverticulitis. Start empiric antibiotic coverage. Blood cultures drawn. Surgery consulted. * Sepsis secondary above continue antibiotic coverage. * History of NYHA class III systolic heart failure with EF under 40%. * Hypertension hold antihypertensives until sepsis improves * GERD continue PPI * Full code Plan * Inpatient admission * Surgery consult * Antibiotic coverage * Crystalloids * Pre-existing medical condition management and home medications except for antihypertensives Time Spent With Patient Time: Total time spent is greater than 50% in coordination of care (as documented) at patient's floor/unit and/or counseling patient:
[2020-04-25 15:52] LABS: Appearance,Urine CLEAR; Bilirubin,Urine NEG (NEG); Color,Urine YELLOW; Culture Indicated,Urine NO; Glucose,Urine (UA) NEGATIVE (NEG); Ketones,Urine NEG (NEG); Leukocyte Esterase,Urine NEG /uL (NEG); Nitrate,Urine NEG (NEG); Protein,Urine NEG (NEG); Specific Gravity,Urine 1.025 (1.000-1.035); Urine Blood NEG mg/dL (<0.03); Urobilinogen,Urine NEG (NEG)
--- NOTE | 2020-04-25 16:22 | General Surgery Consult Note ---
HPI Data of Consult Primary Care Provider: Jeana Livingston Consult Narrative Patient Information: Note initiated : 04/25/20 at 4:19 pm Service Date, if different from initiated Date: [] Patient: Jacquelin Red 74 y/o M admitted on 04/25/20 for abdominal pain. Chief Complaint: [rigors] HPI: 74 yo man with hx of diverticulitis and s/p LA with ischemic cardiomyopathy s/p 4VCABG 10yrs ago with EF now improved to 45% - he now presents to ED with abdominal cramps, fevers, and rigors. In 2017 he had diverticulitis with sepsis, most recently this December pt again had sigmoid diverticulitis that responded to a prolonged course of antibiotics. He regained his health and has been well for the last several months. Of note at the time of his episode CT scan showed a short segment of sigmoid with abnormal dilation and wall thickening consistent associated with infection. He now presents with 1 month of malaise and fatigue that one week ago became much worse with 4/10 bilateral lower abdominal cramping, fevers and chills. The re was associated decrease in stool frequency to 1 daily. Feeling this was diverticulitis he began taking cipro BID with minimal improvement and today due to worsening symptoms and new rigors presented to ED. His last colonoscopy was 2017 with several adenomatous polyps and scattered diverticula - repeat interval of 3yrs recommended, no family history of colon/rectal cancer + flatus, + BM - blood in stool. - Jaundice cc:: CC: [place] Constitutional Constitutional: Present chills, fatigue, fever(s) and malaise; Absent increased appetite EENT Eyes: Absent discharge and floaters Breasts Breasts: Absent skin changes Cardiovascular Cardiovascular: Absent leg ulcers and syncope Respiratory Respiratory: Absent stridor Gastrointestinal Gastrointestinal: Present abdominal pain; Absent dyspepsia Musculoskeletal Musculoskeletal: Absent neck pain Integumentary Integumentary: Absent new lesions Neurological Neurological: Absent vertigo Psychiatric Psychiatric: Absent hallucinations Hematologic/Lymphatic Hematologic/Lymphatic: Absent lymphadenopathy PFSH PFSH All Active Problems (Updated 04/25/20 @ 16:51 by Anton Delarosa MD) Diverticulitis large intestine w/o perforation or abscess w/o bleeding (Acute) Hx of adenomatous colonic polyps (Chronic) Diverticulitis of sigmoid colon (Acute) Rigors (Acute) Erectile dysfunction (Chronic) CHF (congestive heart failure) (Acute) Heart failure, systolic, with acute decompensation (Acute) Cardiomyopathy as manifestation of underlying disease (Acute) Constipation by delayed colonic transit (Acute) Back pain (Chronic) Peyronie's Disease (Chronic) History of tobacco use (Chronic) Cardiac LV ejection fraction 21-40% (Chronic) Hypertension, essential (Chronic) Acid reflux (Chronic) CAD (coronary artery disease) (Chronic) Cardiomyopathy (Chronic) Myocardial infarct, old (Chronic) Medical History (Updated 04/25/20 @ 16:51 by Anton Delarosa MD) Acid reflux (Chronic) Adynamic ileus (Inactive) CAD (coronary artery disease) (Chronic) Cardiac LV ejection fraction 21-40% (Chronic) Cardiomyopathy (Chronic) Choledocholithiasis with obstruction (Resolved) Diverticulitis (Inactive) Diverticulitis of sigmoid colon (Inactive) Diverticulitis of sigmoid colon (Inactive) Erectile dysfunction (Chronic) Chart indicates he is on sildenafil for ED (noted 04/25/2020) Facial basal cell cancer (Resolved) History of tobacco use (Chronic) Hx of adenomatous colonic polyps (Chronic) tubular; sessile Hypertension, essential (Chronic) Myocardial infarct, old (Chronic) Sepsis (Inactive) Small bowel obstruction (Resolved) Surgical History (Updated 04/25/20 @ 16:35 by Anton Delarosa MD) H/O colonoscopy (Chronic) [facility] - [facility] 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 History of cholecystectomy (Chronic) 07/2014 S/P ERCP (Acute) Family History Father Heart attack Family/Other Heart attack Uncles Social History marital status: single smoking status: Former smoker alcohol intake frequency: a few times a month substance use type: does not use MEDS/ALLERGIES Home Medications and Allergies Home Medications Medication Instructions Recorded Confirmed Type carvedilol 6.25 mg tablet 6.25 mg PO BID #180 tab 06/23/18 04/25/20 Rx doxazosin 8 mg tablet 8 mg PO QDAY #90 tab 06/26/18 04/25/20 Rx omeprazole 20 mg capsule,delayed 20 mg PO QDAY cap 07/09/18 04/25/20 History release arginine HCl (L-arginine) 1 tab PO DAILY 12/31/18 04/25/20 History sildenafil 100 mg PO PRN PRN 12/31/18 04/25/20 History ciprofloxacin HCl 500 mg PO BID #9 tab 10/07/19 04/25/20 Rx Allergies Allergy/AdvReac Type Severity Reaction Status Date / Time OMID Inhibitors AdvReac Mild Cough Verified 04/25/20 10:38 [place]-Sqs-Xlw Reductase AdvReac Mild hip and Verified 04/25/20 10:38 Inhibitor leg pain Physical Examination Vital Signs Vital signs: Temp Pulse Resp BP Pulse Ox 37.7 C H 81 18 146/127 97 04/25/20 14:47 04/25/20 15:31 04/25/20 15:45 04/25/20 15:46 04/25/20 15:31 General physical appearance General physical exam: no distress and other (Good historian, now much improved after abx per report. now appears well) Eyes Eye exam: other (non icteric, not injected) ENT ENT exam: normal pinna and normal nares Head Head exam IM: Present atraumatic, normal inspection and normocephalic Neck Neck exam: no lymphadenopathy Cardiovascular Cardiovascular exam IM: Present normal rate and rhythm (MMM, no MGR, heart sounds very distant) Respiratory Respiratory exam: normal respiratory effort and clear to auscultation Abdomen Abdomen: Present soft (mild distention, no surgical scars, BS pressent, dull to percussion, No tenderness in RUQ, is focally tender in superpubic region and LLQ. no rebound, neg bed shake test, no reflexive guarding ) Rectum Rectum: Present normal sphincter tone, no tenderness, no masses, no bleeding and other (Prostate is enlarged - no nodules, There rectal vault feels normal not inflamed) Integumentary Integumentary: Present no rash Neurologic Neurologic: Present normal coordination and normal sensation; Absent memory loss Musculoskeletal Musculoskeletal: Present normal posture Psychiatric Psychiatric: Present oriented to time, oriented to person, oriented to place, speech is normal and memory intact Results Labs Result diagrams: 04/25/20 11:26 04/25/20 11:18 Labs: Abnormal lab results 04/25/20 Range/Units 11:26 WBC 12.1 H (4.50-11.00) K/mcL Lymph % (Auto) 11.2 L (15.5-49.0) % Gran # 9.31 H (1.80-8.00) K/mcL Lymph # (Auto) 1.36 L (1.50-4.80) K/mcL [place] # (Auto) 1.34 H (0.10-0.90) K/mcL Diabetes panel 04/25/20 Range/Units 11:18 Sodium 136 (133-145) mmol/L Potassium 4.1 (3.3-5.1) mmol/L Chloride 101 (96-108) mmol/L Carbon Dioxide 22 (22-30) mmol/L BUN 11 (8-23) mg/dl Creatinine 0.9 (0.7-1.2) mg/dl Glucose 89 (70-105) mg/dL Calcium 9.0 (8.6-10.4) mg/dl AST 10 (0-37) U/l ALT 10 (0-40) U/l Alkaline Phosphatase 61 (39-117) U/L Total Protein 6.5 (5.9-8.4) gm/dL Albumin 3.5 (3.2-5.2) gm/dL Calcium panel 04/25/20 Range/Units 11:18 Calcium 9.0 (8.6-10.4) mg/dl Albumin 3.5 (3.2-5.2) gm/dL Pituitary panel 04/25/20 Range/Units 11:18 Sodium 136 (133-145) mmol/L Potassium 4.1 (3.3-5.1) mmol/L Chloride 101 (96-108) mmol/L Carbon Dioxide 22 (22-30) mmol/L BUN 11 (8-23) mg/dl Creatinine 0.9 (0.7-1.2) mg/dl Glucose 89 (70-105) mg/dL Calcium 9.0 (8.6-10.4) mg/dl Adrenal panel 04/25/20 Range/Units 11:18 Sodium 136 (133-145) mmol/L Potassium 4.1 (3.3-5.1) mmol/L Chloride 101 (96-108) mmol/L Carbon Dioxide 22 (22-30) mmol/L BUN 11 (8-23) mg/dl Creatinine 0.9 (0.7-1.2) mg/dl Glucose 89 (70-105) mg/dL Calcium 9.0 (8.6-10.4) mg/dl Total Bilirubin 0.5 (0.0-1.0) mg/dL AST 10 (0-37) U/l ALT 10 (0-40) U/l Alkaline Phosphatase 61 (39-117) U/L Total Protein 6.5 (5.9-8.4) gm/dL Albumin 3.5 (3.2-5.2) gm/dL All other labs normal. A/P Assessment and plan (1) Diverticulitis large intestine w/o perforation or abscess w/o bleeding: Status: Acute Comment: 74 yo man with significant cardiac history and biliary stones who now presents again for multiplely recurrent sigmoid diverticulitis. His past treatment regiments this yr were floroquinolone based and I suspect his microbiome may be resistant. Good response to PIP/SHAVON in ED. Of note he has now developed a quite impressive sentimental dilati on/pseudoaneurysm of his sigmoid colon that is large [id number]. Given this progressive dilation and ongoing recurrence it is likely he will need a resection in the future. However goal of this admission is acute control of infection with abx. Rec: Agree with broad spectrum abx ie PIP/SHAVON Bowel rest: sips of clears OK Surgery acutely only in the case of significant decline or non progression Will need outpt repeat colonoscopy and consideration of elective resection Anton Delarosa MD Time Spent With Patient Time: Total time spent is greater than 50% in coordination of care (as documented) at patient's floor/unit and/or counseling patient: 40min
[2020-04-25] MEDS ORDERED: HYDROmorphone 0.5 MG/0.5 ML SYRINGE IV PRN (16:55)
[2020-04-25] MEDS ORDERED: MAGNESIUM SULFATE 2 GM/50 ML BAG IV PRN (16:55)
[2020-04-25] MEDS ORDERED: METOPROLOL TARTRATE 5 MG/5 ML VIAL IV PRN (16:55)
[2020-04-25] MEDS ORDERED: BISACODYL 10 MG SUPP.RECT PR PRN (16:55)
[2020-04-25] MEDS ORDERED: ACETAMINOPHEN 325 MG TABLET PO PRN (16:55)
[2020-04-25] MEDS ORDERED: POTASSIUM CHLORIDE 20 MEQ PACKET PO PRN (16:55)
[2020-04-25] MEDS ORDERED: hydrALAZINE 20 MG/ML VIAL IV PRN (16:55)
[2020-04-25] MEDS ORDERED: ONDANSETRON 4 MG/2 ML VIAL IV PRN (16:55)
[2020-04-25] MEDS ORDERED: ONDANSETRON 4 MG ODT TABLET SL PRN (16:55)
[2020-04-25] MEDS: 0.9 % SODIUM CHLORIDE 1,000 ML IV SCH (17:14)
[2020-04-25] MEDS: CARVEDILOL 6.25 MG TABLET PO SCH (17:41)
[2020-04-25] MEDS: PIPERACILLIN SODIUM/TAZOBACTAM 3.375 GM in DEXTROSE 5% IN WATER 50 ML IV SCH (17:47)
[2020-04-25] MEDS ORDERED: DOXAZOSIN 4 MG TABLET PO SCH ×2 (21:00)
[2020-04-25] MEDS: [UNRECOGNIZED DRUG - OTHER] PO SCH (23:45)
[2020-04-25] MEDS: 0.9 % SODIUM CHLORIDE 10 ML SYRINGE IV SCH (23:46)
[2020-04-26] MEDS: PIPERACILLIN SODIUM/TAZOBACTAM 3.375 GM in DEXTROSE 5% IN WATER 50 ML IV SCH ×5 (00:03→23:56)
[2020-04-26] MEDS: 0.9 % SODIUM CHLORIDE 10 ML SYRINGE IV SCH ×3 (06:06→20:28)
[2020-04-26 06:27] LABS: Hemoglobin 12.7 g/dL (13.7-17.5); Mean Cell Volume 88.2 fL (80.0-100.0); Mean Corpuscular HGB Conc 32.6 g/dL (31.0-36.0); Mean Platelet Volume 8.7 fL (7.4-10.4); Platelet Count 244 K/mcL (140-440); RBC 4.42 M/mcL (4.63-6.08); Red Cell Distribution Width 14.2 % (11.5-14.5); WBC 10.3 K/mcL (4.50-11.00)
[2020-04-26 06:45] LABS: ALT/SGPT 8 U/l (0-40); AST/SGOT 8 U/l (0-37); Albumin 3.1 gm/dL (3.2-5.2); Albumin/Globulin Ratio 1.1 (1.0-2.3); Alkaline Phosphatase 55 U/L (39-117); Bilirubin,Direct 0.2 mg/dL (0.0-0.3); Bilirubin,Total 0.7 mg/dL (0.0-1.0); Blood Urea Nitrogen 9 mg/dl (8-23); Calcium 8.5 mg/dl (8.6-10.4); Carbon Dioxide 23 mmol/L (22-30); Chloride 102 mmol/L (96-108); Globulin 2.8 gm/dL (2.2-3.7); Glomerular Filtration Rate 84; Glucose 95 mg/dL (70-105); Lactate Dehydrogenase 110 U/L (94-250); Phosphorous 3.4 mg/dL (2.7-4.5); Triglycerides 113 mg/dl (<150); Uric Acid 4.5 mg/dL (2.5-8.0)
[2020-04-26 09:01] LABS: Band Neutrophils % 4 % (0-10); Basophils % (Manual) 1 % (0-2); Eosinophils % (Manual) 1 % (0-7); Lymphocytes % 15 % (15-49); Monocytes % (Manual) 13 % (1-12); Platelet Estimate NORMAL (NORMAL); RBC Morphology NORMAL (NORMAL); Segmented Neutrophils % 66 % (38-78)
[2020-04-26] MEDS: CARVEDILOL 6.25 MG TABLET PO SCH ×2 (09:10→18:32)
--- NOTE | 2020-04-26 10:04 | General Surgery Progress Note ---
SUBJECTIVE Subjective Patient information: Note initiated : 04/26/20 at 9:58 am Service Date, if different from initiated Date: [] Patient: Jacquelin Red a 74 y/o M admitted on 04/25/20 for abdominal pain. Chief Complaint: [abd pain] S: feeling well this morning, no longer with subjective fevers, no rigors, + flatus, + BM, Much improved over yesterday O: VSS - afebrile since first abx dose Looks well, bright affect Breathing easily on RA Strong regular radial pulse Abd nondistended, soft, tender in superpubic area and LLQ - improved over exam yesterday. No peritoneal signs All labs reviewed - WBC now normal at 10 A/P 74 yo man HD2 with significant cardiac history and recurrent sigmoid d iverticulitis. Now responding well to PIP/SHAVON with all parameters: fever, tenderness, WBC, etc improving Plan: Ok to advance diet to Clears Continue IV abx today - should get a full 24hrs of IV abx prior to switch to orals Unlikely to need surgery acutely Will need outpt repeat colonoscopy and consideration of elective resection with quite impressive sentimental dilation/pseudoaneurysm of his sigmoid colon that is large [id number] Anton Delarosa MD - Surgery Constitutional Vitals: Vital Signs Temp Pulse Resp BP Pulse Ox 36.9 C 77 18 116/70 96 04/26/20 08:00 04/26/20 08:00 04/26/20 08:00 04/26/20 08:00 04/26/20 08:00 Period Temp Pulse Resp BP Sys/Shrestha Pulse Ox Last 24 Hr 36.5 C-37.7 C 70-88 12-32 100-146/61-127 94-100 Intake and Output 04/25/20 04/26/20 04/26/20 21:59 05:59 13:59 Intake Total 50 50 50 Balance 50 50 50 Weight 82.554 kg Intake & Output: Intake & Output 04/25/20 04/26/20 04/26/20 21:59 05:59 13:59 Intake Total 50 50 50 Balance 50 50 50 Weight 82.554 kg Intake: IV 50 50 50 Zosyn 3.375 gm In Dextrose 5% 50 50 50 in Water 50 ml @ 100 mls/hr IV Q6H [facility] Rx#:[id number] Oral 0 0 Other: Stool Size Moderate Stool Color Brown Stool Consistency Formed # Voids 1 # Bowel Movements 1 A/P Time Spent With Patient Time: Total time spent is greater than 50% in coordination of care (as documented) at patient's floor/unit and/or counseling patient:
[2020-04-26] MEDS: [UNRECOGNIZED DRUG - OTHER] PO SCH ×2 (13:17→20:28)
--- NOTE | 2020-04-26 13:24 | Internal Med Progress Note ---
SUBJECTIVE Subjective Patient information: Note initiated : 04/26/20 at 1:24 pm Service Date, if different from initiated Date: [] Patient: Jacquelin Red a 74 y/o M admitted on 04/25/20 for abdominal pain. Chief Complaint: [] Mr. Red is a 74 year old M with a history of diverticulitis/hypertension who was in his baseline state of health until roughly 3 weeks palpitation started noticing increasing weakness, malaise, lower abdominal discomfort without major changes in bowel habit. Patient started experiencing chills and fever 12 hours prior to presentation along with increasing abdominal pain 6 out of 10 to 8 out of 10 associated cramping. Patient endorses to trying ice cream to help relieve his symptoms but only made worse. With above symptoms he presents to the ER. Initial work-up was consistent with acute diverticulitis, white count 12,000. Cultures were drawn and patient was started on antibiotics. Surgery was consulted and requested hospitalization and hospitalist service was consulted At the time of evaluation patient is alert and oriented. He was able to answer most of the questions. He denies recent weight loss. His last hospitalization was in September for choledocholithiasis with successfully underwent ERCP and resolution of symptoms. He has been otherwise fairly healthy. His last episode of diverticulitis was 2018 and was treated with almost 8 weeks of ciprofloxacin and Flagyl under care of Dr. Livingston surgery. He denies chest pain, bloody stool, dysuria, lightheadedness dizziness. 04/26-patient doing a lot better. Denies abdominal discomfort or pain. On clears. Continuing IV antibiotics. Surgery on board. No fever chills. Clinical improvement noted. White count downtrending from 12.1-10.3.Stable labs and hemodynamics. Constitutional Vitals: Nontender nondistended abdomenVital Signs Temp Pulse Resp BP Pulse Ox 98.3 F 66 18 136/82 96 04/26/20 12:00 04/26/20 12:00 04/26/20 12:00 04/26/20 12:00 04/26/20 12:00 Period Temp Pulse Resp BP Sys/Shrestha Pulse Ox Last 24 Hr 97.9 F-99.9 F 66-88 12-32 100-146/61-127 94-97 Intake and Output 04/25/20 04/26/20 04/26/20 21:59 05:59 13:59 Intake Total 50 50 100 Balance 50 50 100 Weight 82.554 kg 82.554 kg Patient Weight 04/27/20 05:59 Weight 82.554 kg Alert oriented Nonlabored breathing Nontender nondistended abdomen No anxiety Intake & Output: Intake & Output 04/25/20 04/26/20 04/26/20 21:59 05:59 13:59 Intake Total 50 50 100 Balance 50 50 100 Weight 82.554 kg 82.554 kg Intake: IV 50 50 100 Zosyn 3.375 gm In Dextrose 5% 50 50 100 in Water 50 ml @ 100 mls/hr IV Q6H [facility] Rx#:[id number] Oral 0 0 Other: Stool Size Moderate Stool Color Brown Stool Consistency Formed # Voids 1 # Bowel Movements 1 OBJ DATA Labs CBC & Chem 7: 04/26/20 05:20 04/26/20 05:20 Labs: Abnormal Lab Results 04/26/20 04/26/20 04/25/20 05:20 05:20 11:26 WBC 12.1 H RBC 4.42 L Hgb 12.7 L Hct 39.0 L Lymph % (Auto) 11.2 L Gran # 9.31 H Lymph # (Auto) 1.36 L [place] # (Auto) 1.34 H Monocytes % (Manual) 13 H Calcium 8.5 L Albumin 3.1 L Meds: Medications Acetaminophen (Tylenol) 650 mg PO Q4-6HP PRN; Protocol PRN Reason: Per Pain Protocol/Fever > 101 Bisacodyl (Dulcolax) 10 mg ME Q2-3DAYS PRN PRN Reason: Constipation [facility] Admin: 04/26/20 09:10 Dose: 6.25 mg Documented by: Doxazosin Mesylate (Cardura) 8 mg PO HS [facility] Last Admin: 04/25/20 23:45 Dose: Not Given Documented by: Hydralazine HCl (Apresoline) 10 mg IV Q4-6HP PRN PRN Reason: Hypertension Hydromorphone HCl (Dilaudid) 0.25 - 0.5 mg IV Q4HP PRN; Protocol PRN Reason: Per Pain Protocol Sodium Chloride (Sodium Chloride 0.9%) 1,000 mls @ 50 mls/hr IV .Q20H [facility] Stop: 04/28/20 04:54 Last Admin: 04/25/20 17:14 Dose: 50 mls/hr Documented by: Magnesium Sulfate (Magnesium Sulfate) 2 gm in 50 mls @ 50 mls/hr IV UD PRN PRN Reason: MG = or < 1.7 Piperacillin Sod/Tazobactam (Sod 3.375 gm/ Dextrose) 50 mls @ 100 mls/hr IV Q6H [facility]; Protocol Last Infusion: 04/26/20 13:18 Dose: Infused Documented by: Metoprolol Tartrate (Lopressor) 5 mg IV Q5M PRN PRN Reason: Heart Rate > 140 bpm Ondansetron HCl (Zofran Odt) 4 mg SL Q4-6HP PRN; Protocol PRN Reason: Nausea And Vomiting Ondansetron HCl (Zofran) 4 mg IV Q4-6HP PRN; Protocol PRN Reason: Nausea And Vomiting Sacubitrilvalsartan [Entresto] 24/26mg Tab 1 dose PO BID [facility] Last Admin: 04/26/20 13:17 Dose: 1 dose Documented by: Potassium Chloride (Klor-Con) 40 meq PO DAILYP PRN PRN Reason: K+ < 3.5 Sodium Chloride (Saline Flush) 10 ml IV Q8 [facility] Last Admin: 04/26/20 06:06 Dose: Not Given Documented by: A/P Assessment and plan (1) Diverticulitis large intestine w/o perforation or abscess w/o bleeding: Status: Acute Narrative A/P Narrative: * Acute sigmoid diverticulitis. Clinical improvement noted on antibiotic coverage. Cultures negative so far. Surgery on board. On conservative managemented. * Sepsis secondary above clinical improvement noted on antibiotic coverage. White count down to 10,000. * History of NYHA class III systolic heart failure with EF under 40%. * Hypertension restart antihypertensives * GERD continue PPI * Full code Plan * Continue antibiotic coverage * Diet advancement per surgery * Restart pre-existing home medications * Crystalloids Time Spent With Patient Time: Total time spent is greater than 50% in coordination of care (as docum ented) at patient's floor/unit and/or counseling patient:
[2020-04-26] MEDS: 0.9 % SODIUM CHLORIDE 1,000 ML IV SCH (15:59)
[2020-04-26] MEDS: DOXAZOSIN 4 MG TABLET PO SCH (20:28)
[2020-04-27] MEDS: PIPERACILLIN SODIUM/TAZOBACTAM 3.375 GM in DEXTROSE 5% IN WATER 50 ML IV SCH (06:03)
[2020-04-27] MEDS: 0.9 % SODIUM CHLORIDE 10 ML SYRINGE IV SCH ×2 (06:04→13:46)
[2020-04-27 07:04] LABS: Hematocrit 38.8 % (40.1-51.0); Hemoglobin 12.5 g/dL (13.7-17.5); Mean Cell Volume 88.8 fL (80.0-100.0); Mean Corpuscular HGB Conc 32.2 g/dL (31.0-36.0); Mean Platelet Volume 8.6 fL (7.4-10.4); Platelet Count 243 K/mcL (140-440); RBC 4.37 M/mcL (4.63-6.08); Red Cell Distribution Width 13.9 % (11.5-14.5); WBC 8.3 K/mcL (4.50-11.00)
[2020-04-27 07:14] LABS: ALT/SGPT 7 U/l (0-40); AST/SGOT 8 U/l (0-37); Alkaline Phosphatase 53 U/L (39-117); Bilirubin,Total 0.6 mg/dL (0.0-1.0); Blood Urea Nitrogen 9 mg/dl (8-23); Calcium 8.7 mg/dl (8.6-10.4); Carbon Dioxide 22 mmol/L (22-30); Chloride 103 mmol/L (96-108); Glomerular Filtration Rate 84; Glucose 93 mg/dL (70-105); Lactate Dehydrogenase 113 U/L (94-250); Phosphorous 3.3 mg/dL (2.7-4.5); Triglycerides 110 mg/dl (<150)
[2020-04-27 07:21] LABS: Bilirubin,Direct < 0.2 mg/dL (0.0-0.3)
--- NOTE | 2020-04-27 08:25 | General Surgery Progress Note ---
SUBJECTIVE Subjective Patient information: Note initiated : 04/27/20 at 8:17 am Service Date, if different from initiated Date: [] Patient: Jacquelin Red 74 y/o M admitted on 04/25/20 for abdominal pain. Chief Complaint: S: continues to improve, less abdominal discomfort, + flatus, + bm, tolerated clear liquids yesterday without difficulty. Up out of bed O; VSS no fevers Looks well, bright affect Beathing easily on RA RRR, strong radial pulse Abd non diestended, soft, mildly tender in suprapubic area, Underlying firmness on admission resolving periphery warm All labs reviwed WBC today 8.3 A/P 74 yo man HD3 with significant cardiac history and recurrent sigmoid diverticulitis. Doing quite well on day 3 of abx. Infection resolving. Plan: Ok to advance diet to low residue IV ABX-> oral Amox/clav, day 3 May be able to discharge this afternoon per surgery if doing well with diet and oral abx transition Will need outpt repeat colonoscopy and consideration of elective resection with quite impressive sentimental dilation/pseudoaneurysm of his sigmoid colon that is large [id number] Anton Delarosa MD - Surgery Constitutional Vitals: Vital Signs Temp Pulse Resp BP Pulse Ox 36.9 C 65 16 110/68 96 04/27/20 07:23 04/27/20 07:23 04/27/20 07:23 04/27/20 07:23 04/27/20 07:23 Period Temp Pulse Resp BP Sys/Shrestha Pulse Ox Last 24 Hr 36.4 C-37.1 C 56-70 16-18 107-136/66-82 94-96 Intake and Output 04/26/20 04/27/20 04/27/20 21:59 05:59 13:59 Intake Total 1115 575 Balance 1115 575 Weight 80.694 kg Intake & Output: Intake & Output 04/26/20 04/27/20 04/27/20 21:59 05:59 13:59 Intake Total 1115 575 Balance 1115 575 Weight 80.694 kg Intake: IV 50 50 Zosyn 3.375 gm In Dextrose 5% 50 50 in Water 50 ml @ 100 mls/hr IV Q6H [facility] Rx#:[id number] Oral [id number] Other: Meal Dinner Percent of Meal Consumed 100% Stool Size Moderate Small Stool Color Brown Brown Stool Consistency Liquid Loose Loose # Voids 1 1 # Bowel Movements 1 1 A/P Time Spent With Patient Time: Total time spent is greater than 50% in coordination of care (as documented) at patient's floor/unit and/or counseling patient:
[2020-04-27 08:52] LABS: Lymphocytes % 15 % (15-49); Monocytes % (Manual) 11 % (1-12); Platelet Estimate NORMAL (NORMAL); RBC Morphology NORMAL (NORMAL); Segmented Neutrophils % 74 % (38-78)
[2020-04-27] MEDS: [UNRECOGNIZED DRUG - OTHER] PO SCH (09:14)
[2020-04-27] MEDS: 0.9 % SODIUM CHLORIDE 1,000 ML IV SCH (09:14)
[2020-04-27] MEDS: CARVEDILOL 6.25 MG TABLET PO SCH ×2 (09:14→17:24)
--- NOTE | 2020-04-27 09:39 | XRay Report ---
HISTORY: Pain, interval change FINDINGS: The lungs are clear and well expanded. The thin band of discoid atelectasis seen in the left lower thorax on 10/06/19 has resolved. The heart size is normal. There has been prior coronary artery bypass surgery. No congestive heart failure or pleural effusion are present and there is no evidence of adenopathy. No free intra-abdominal air is present. IMPRESSION: Normal chest Interpreted and Authenticated by: Luis Ramos 04/27/20
[2020-04-27] MEDS ORDERED: FLU VACC QS2020-21(6MOS UP)/PF 60 MCG/0.5 ML SYRINGE IM ONE (10:00)
--- NOTE | 2020-04-27 12:06 | Internal Med Progress Note ---
SUBJECTIVE Subjective Patient information: Note initiated : 04/27/20 at 12:03 pm Service Date, if different from initiated Date: [] Patient: Jacquelin Red a 74 y/o M admitted on 04/25/20 for abdominal pain. Chief Complaint: Mr. Red is a 74 year old M with a history of diverticulitis/hypertension who was in his baseline state of health until roughly 3 weeks palpitation started noticing increasing weakness, malaise, lower abdominal discomfort without major changes in bowel habit. Patient started experiencing chills and fever 12 hours prior to presentation along with increasing abdominal pain 6 out of 10 to 8 out of 10 associated cramping. Patient endorses to trying ice cream to help relieve his symptoms but only made worse. With above symptoms he presents to the ER. Initial work-up was consistent with acute diverticulitis, white count 12,000. Cultures were drawn and patient was started on antibiotics. Surgery was consulted and requested hospitalization and hospitalist service was consulted At the time of evaluation patient is alert and oriented. He was able to answer most of the questions. He denies recent weight loss. His last hospitalization was in September for choledocholithiasis with successfully underwent ERCP and resolution of symptoms. He has been otherwise fairly healthy. His last episode of diverticulitis was 2018 and was treated with almost 8 weeks of ciprofloxacin and Flagyl under care of Dr. Livingston surgery. He denies chest pain, bloody stool, dysuria, lightheadedness dizziness. 04/26-patient doing a lot better. Denies abdominal discomfort or pain. On clears. Continuing IV antibiotics. Surgery on board. No fever chills. Clinical improvement noted. White count downtrending from 12.1-10.3.Stable labs and hemodynamics. 04/27-patient doing well. No overnight events. Tolerating clears and advancing diet as per surgery recommendations. Transitioning to oral antibiotic as per surgery. Denies abdominal pain, fever, bloody stool or diarrhea. Will likely discharge in 24 hours pending clinical improvement/if able to tolerate diet with outpatient follow-up with surgery Constitutional Vitals: Vital Signs Temp Pulse Resp BP Pulse Ox 98.1 F 59 L 16 131/78 97 04/27/20 11:43 04/27/20 11:43 04/27/20 11:43 04/27/20 11:43 04/27/20 11:43 Period Temp Pulse Resp BP Sys/Shrestha Pulse Ox Last 24 Hr 97.6 F-98.7 F 56-70 16-18 107-131/66-78 94-97 Intake and Output 04/26/20 04/27/20 04/27/20 21:59 05:59 13:59 Intake Total 1115 575 50 Balance 1115 575 50 Weight 80.694 kg Alert oriented Nonlabored breathing Nondistended nontender abdomen No anxiety Intake & Output: Intake & Output 04/26/20 04/27/20 04/27/20 21:59 05:59 13:59 Intake Total 1115 575 50 Balance 1115 575 50 Weight 80.694 kg Intake: IV 50 50 50 Zosyn 3.375 gm In Dextrose 5% 50 50 50 in Water 50 ml @ 100 mls/hr IV Q6H [facility] Rx#:[id number] Oral 1065 525 Other: Meal Dinner Percent of Meal Consumed 100% Stool Size Moderate Small Stool Color Brown Brown Stool Consistency Liquid Loose Loose # Voids 1 1 # Bowel Movements 1 1 OBJ DATA Labs CBC & Chem 7: 04/27/20 05:30 04/27/20 05:30 Labs: Abnormal Lab Results 04/27/20 04/27/20 04/26/20 05:30 05:30 05:20 WBC RBC 4.37 L Hgb 12.5 L Hct 38.8 L Lymph % (Auto) Gran # Lymph # (Auto) [place] # (Auto) Monocytes % (Manual) Calcium 8.5 L Albumin 3.0 L 3.1 L 04/26/20 04/25/20 05:20 11:26 WBC 12.1 H RBC 4.42 L Hgb 12.7 L Hct 39.0 L Lymph % (Auto) 11.2 L Gran # 9.31 H Lymph # (Auto) 1.36 L [place] # (Auto) 1.34 H Monocytes % (Manual) 13 H Calcium Albumin Meds: Medications Acetaminophen (Tylenol) 650 mg PO Q4-6HP PRN; Protocol PRN Reason: Per Pain Protocol/Fever > 101 Amoxicillin/Clavulanate Potassium (Augmentin) 875 mg PO BIDCC [place]; Protocol Bisacodyl (Dulcolax) 10 mg [place] Q2-3DAYS PRN PRN Reason: Constipation Carvedilol (Coreg) 6.25 mg PO BIDCC [facility] Last Admin: 04/27/20 09:14 Dose: 6.25 mg Documented by: Doxazosin Mesylate (Cardura) 8 mg PO [facility] Last Admin: 04/26/20 20:28 Dose: 8 mg Documented by: Hydralazine HCl (Apresoline) 10 mg IV Q4-6HP PRN PRN Reason: Hypertension Hydromorphone HCl (Dilaudid) 0.25 - 0.5 mg IV Q4HP PRN; Protocol PRN Reason: Per Pain Protocol Magnesium Sulfate (Magnesium Sulfate) 2 gm in 50 mls @ 50 mls/hr IV UD PRN PRN Reason: MG = or < 1.7 Sodium Chloride (Sodium Chloride 0.9%) 1,000 mls @ 25 mls/hr IV .Q24H [facility] Stop: 05/02/20 08:15 Last Admin: 04/27/20 09:14 Dose: 25 mls/hr Documented by: Metoprolol Tartrate (Lopressor) 5 mg IV Q5M PRN PRN Reason: Heart Rate > 140 bpm Ondansetron HCl (Zofran Odt) 4 mg SL Q4-6HP PRN; Protocol PRN Reason: Nausea And Vomiting Ondansetron HCl (Zofran) 4 mg IV Q4-6HP PRN; Protocol PRN Reason: Nausea And Vomiting Sacubitrilvalsartan [Entresto] 24/26mg Tab 1 dose PO BID [facility] Last Admin: 04/27/20 09:14 Dose: Not Given Documented by: Potassium Chloride (Klor-Con) 40 meq PO DAILYP PRN PRN Reason: K+ < 3.5 Sodium Chloride (Saline Flush) 10 ml IV Q8 [facility] Last Admin: 04/27/20 06:04 Dose: Not Given Documented by: A/P Narrative A/P Narrative: * Acute sigmoid diverticulitis. Clinical improvement noted on antibiotic coverage. Cultures negative so far. Now on oral antibiotics per surgery. * Sepsis clinically resolved * History of NYHA class III systolic heart failure with EF under 40%. Well compensated * Hypertension continue home dose antihypertensives * GERD continue PPI * Full code Plan * Transition to oral antibiotics per surgery * Diet advancement per surgery * Pre-existing medical condition management home meds * Will likely discharge in 24 hours Time Spent With Patient Time: Total time spent is greater than 50% in coordination of care (as documented) at patient's floor/unit and/or counseling patient:
[2020-04-27] MEDS: AMOXICILLIN/POTASSIUM CLAV 875 MG TABLET PO SCH (17:24)
[2020-04-27] MEDS: DOXAZOSIN 4 MG TABLET PO SCH (21:50)
[2020-04-28] MEDS: 0.9 % SODIUM CHLORIDE 10 ML SYRINGE IV SCH ×2 (00:16→05:14)
[2020-04-28] MEDS: [UNRECOGNIZED DRUG - OTHER] PO SCH ×2 (00:16→08:27)
[2020-04-28 06:41] LABS: Hematocrit 39.6 % (40.1-51.0); Hemoglobin 12.5 g/dL (13.7-17.5); Mean Cell Volume 90.8 fL (80.0-100.0); Mean Corpuscular HGB Conc 31.6 g/dL (31.0-36.0); Mean Platelet Volume 8.5 fL (7.4-10.4); Platelet Count 267 K/mcL (140-440); RBC 4.36 M/mcL (4.63-6.08); Red Cell Distribution Width 13.8 % (11.5-14.5); WBC 6.9 K/mcL (4.50-11.00)
[2020-04-28 07:07] LABS: ALT/SGPT 6 U/l (0-40); AST/SGOT 8 U/l (0-37); Albumin 3.2 gm/dL (3.2-5.2); Albumin/Globulin Ratio 1.2 (1.0-2.3); Alkaline Phosphatase 57 U/L (39-117); Bilirubin,Direct < 0.2 mg/dL (0.0-0.3); Bilirubin,Total 0.4 mg/dL (0.0-1.0); Blood Urea Nitrogen 9 mg/dl (8-23); Calcium 8.4 mg/dl (8.6-10.4); Carbon Dioxide 22 mmol/L (22-30); Chloride 104 mmol/L (96-108); Globulin 2.7 gm/dL (2.2-3.7); Glomerular Filtration Rate 74; Glucose 99 mg/dL (70-105); Lactate Dehydrogenase 99 U/L (94-250); Phosphorous 3.2 mg/dL (2.7-4.5); Triglycerides 141 mg/dl (<150); Uric Acid 4.1 mg/dL (2.5-8.0)
[2020-04-28] MEDS: AMOXICILLIN/POTASSIUM CLAV 875 MG TABLET PO SCH (07:16)
[2020-04-28] MEDS: CARVEDILOL 6.25 MG TABLET PO SCH (07:16)
[2020-04-28] MEDS: 0.9 % SODIUM CHLORIDE 1,000 ML IV SCH (07:16)
[2020-04-28 08:40] LABS: Eosinophils % (Manual) 3 % (0-7); Lymphocytes % 12 % (15-49); Monocytes % (Manual) 12 % (1-12); Platelet Estimate NORMAL (NORMAL); RBC Morphology NORMAL (NORMAL); Segmented Neutrophils % 73 % (38-78)
--- NOTE | 2020-04-28 09:29 | Discharge Summary ---
Discharge Provider Provider Patient information: Note initiated : 04/28/20 at 9:27 am Service Date, if different from initiated Date: [] Patient: Jacquelin Red a 74 y/o M admitted on 04/25/20 for abdominal pain. Chief Complaint: Discharge diagnosis * Acute sigmoid diverticulitis. Clinical improvement noted on antibiotic coverage. Continue additional 11 days oral Augmentin per surgery. Follow-up with surgery as outpatient for evaluation of elective surgery. Continue diet per senior java engineer. * Sepsis clinically resolved. * History of NYHA class III systolic heart failure with EF under 40%. Well compensated * Hypertension continue home dose antihypertensives * GERD continue PPI Brief hospital course Mr. Red is a 74 year old M with a history of diverticulitis/hypertension who was in his baseline state of health until roughly 3 weeks palpitation started noticing increasing weakness, malaise, lower abdominal discomfort without major changes in bowel habit. Patient started experiencing chills and fever 12 hours prior to presentation along with increasing abdominal pain 6 out of 10 to 8 out of 10 associated cramping. Patient endorses to trying ice cream to help relieve his symptoms but only made worse. With above symptoms he presents to the ER. Initial work-up was consistent with acute diverticulitis, white count 12,000. Cultures were drawn and patient was started on antibiotics. Surgery was consulted and requested hospitalization and hospitalist service was consulted At the time of evaluation patient is alert and oriented. He was able to answer most of the questions. He denies recent weight loss. His last hospitalization was in September for choledocholithiasis with successfully underwent ERCP and resolution of symptoms. He has been otherwise fairly healthy. His last episode of diverticulitis was 2018 and was treated with almost 8 weeks of ciprofloxacin and Flagyl under care of Dr. Livingston surgery. He denies chest pain, bloody stool, dysuria, lightheadedness dizziness. 04/26-patient doing a lot better. Denies abdominal discomfort or pain. On clears. Continuing IV antibiotics. Surgery on board. No fever chills. Clinical improvement noted. White count downtrending from 12.1-10.3.Stable labs and hemodynamics. 04/27-patient doing well. No overnight events. Tolerating clears and advancing diet as per surgery recommendations. Transitioning to oral antibiotic as per surgery. Denies abdominal pain, fever, bloody stool or diarrhea. Will likely discharge in 24 hours pending clinical improvement/if able to tolerate diet with outpatient follow-up with surgery 04/28-patient doing well. No overnight events. No concerns per staff. Tolerating diet. Denies abdominal discomfort, fever, chills. On diet per senior java engineer. We will follow-up with surgery as outpatient. Continue additional 11 days oral Augmentin as per surgery recommendations. Date of admission: 04/25/20 16:09 Discharge date: 04/28/20 Primary care physician: Jeana Livingston Consults: 04/25/20 Consult to Physician [CONS] Stat Comment: Consulting Provider: Ham Canas Reason For Exam: Physician to Consult 04/25/20 13:51 Consult to Physician [CONS] Stat Comment: Consulting Provider: Anton Delarosa Reason For Exam: Physician to Consult Discharge Meds Discharge Medications Home Medications carvedilol 6.25 mg tablet 6.25 mg PO BID #180 tab 06/23/18 [Rx Confirmed 04/25/20 Last Taken 10/06/19 0700] omeprazole 20 mg capsule,delayed release 20 mg PO QDAY cap 07/09/18 [History Confirmed 04/25/20 Last Taken 10/06/19 07:00] arginine HCl (L-arginine) 1 tab PO DAILY 12/31/18 [History Confirmed 04/25/20 Last Taken 10/06/19 07:00] sildenafil 100 mg PO PRN PRN 12/31/18 [History Confirmed 04/25/20 Last Taken Unknown] Entresto 1 tab PO BID 04/25/20 [History Confirmed 04/25/20 Last Taken 04/24/20] doxazosin 8 mg PO QHS 04/25/20 [History Confirmed 04/25/20 Last Taken Unknown] amoxicillin-pot clavulanate 1 tab PO BID #22 tab 04/28/20 [Rx Last Taken Unknown] COURSE Hospital Course Hospital course: . Discharge diagnosis: . Time Spent with Patient Time attestation: Total time spent providing and/or coordinating discharge services: EXAM Constitutional Vitals: Temp Pulse Resp BP Pulse Ox 98.6 F 64 18 123/82 95 04/28/20 08:00 04/28/20 08:00 04/28/20 08:00 04/28/20 08:00 04/28/20 08:00 Discharge Data Data Completed and Pending Labs on day of discharge: Labs from last 24 hours 04/28/20 04/28/20 05:40 05:40 WBC 6.9 RBC 4.36 L Hgb 12.5 L Hct 39.6 L MCV 90.8 MCH 28.7 MCHC 31.6 RDW 13.8 Plt Count 267 MPV 8.5 Total Counted 100 Seg Neutrophils % 73 Band Neutrophils % Not Reportable Lymphocytes % 12 L Monocytes % (Manual) 12 Eosinophils % (Manual) 3 Platelet Estimate Normal RBC Morphology Normal Sodium 138 Potassium 3.9 Chloride 104 Carbon Dioxide 22 Anion Gap 12.0 BUN 9 Creatinine 1.0 GFR Calculation 74 Glucose 99 Uric Acid 4.1 Calcium 8.4 L Phosphorus 3.2 Magnesium 2.1 Total Bilirubin 0.4 Direct Bilirubin < 0.2 GGT 20 AST 8 ALT 6 Alkaline Phosphatase 57 Lactate Dehydrogenase 99 Total Protein 5.9 Albumin 3.2 Globulin 2.7 Albumin/Globulin Ratio 1.2 Triglycerides 141 Preliminary micro results at discharge 04/25/20 12:34 Blood Culture - Preliminary Blood 04/25/20 12:28 Blood Culture - Preliminary Blood Discharge Plan Patient/Caregiver Discharge Instructions Activity: increase activity as tolerated Diet: Regular Diet Activity Restrictions/Additional Instructions: Follow-up with surgery in 2 weeks Continue oral Augmentin for 11 days. Diet per senior java engineer Return to ER if worsening dull pain nausea vomiting fever bloody stool Prescriptions: New amoxicillin-pot clavulanate 875-125 mg Tablet 1 tab PO BID Qty: 22 RF: 0 Continued carvedilol 6.25 mg tablet 6.25 mg PO BID Qty: 180 RF: 3 omeprazole 20 mg capsule,delayed release(DR/EC) 20 mg PO QDAY RF: 0 sildenafil 100 MG tablet 100 mg PO PRN PRN (Reason: ED) RF: 0 arginine HCl (L-arginine) 1,000 MG tablet 1 tab PO DAILY RF: 0 Entresto 24-26 mg Tablet 1 tab PO BID RF: 0 doxazosin 8 mg tablet 8 mg PO QHS RF: 0 Discontinued ciprofloxacin HCl 500 MG tablet 500 mg PO BID Qty: 9 RF: 0 Follow Up Plan Follow up with: Jeana Livingston ARNP [Primary Care Provider] - Patient Disposition: Home, Self-Care Rehab Potential: Fair I certify that the patient requires SNF services: No Overall status at discharge: patient is progressing back to baseline Discharge Orders: Discharge Order (Routine); Ordered 04/28/20 Ordered By: Ham Canas
== END 2020-04-28 10:50 | disposition home or self-care (01) | DRG 872 ==
LOC: ED 10:35 → MEDSUR 16:09
PROVIDERS: ADMIT Internal Medicine; ATTEND Internal Medicine

== ENCOUNTER 2020-05-19 04:50 | Inpatient (IN) ==
[2020-05-12 16:07] LABS: Basophils # (Auto) 0.03 K/mcL (0.00-0.30); Basophils % (Auto) 0.3 % (0.0-2.0); Eosinophils # (Auto) 0.11 K/mcL (0.00-0.70); Granulocytes % (Auto) 74.3 % (38.0-78.0); Hematocrit 43.1 % (40.1-51.0); Hemoglobin 13.6 g/dL (13.7-17.5); Lymphocytes # (Auto) 1.41 K/mcL (1.50-4.80); Lymphocytes % (Auto) 13.2 % (15.5-49.0); Mean Cell Volume 90.9 fL (80.0-100.0); Mean Corpuscular HGB Conc 31.6 g/dL (31.0-36.0); Mean Platelet Volume 9.1 fL (7.4-10.4); Monocytes % (Auto) 11.2 % (1.0-12.0); Platelet Count 227 K/mcL (140-440); RBC 4.74 M/mcL (4.63-6.08); Red Cell Distribution Width 14.4 % (11.5-14.5); WBC 10.7 K/mcL (4.50-11.00)
[2020-05-12 16:10] LABS: ALT/SGPT 11 U/l (0-40); AST/SGOT 13 U/l (0-37); Albumin 3.7 gm/dL (3.2-5.2); Albumin/Globulin Ratio 1.3 (1.0-2.3); Alkaline Phosphatase 60 U/L (39-117); Bilirubin,Total 0.2 mg/dL (0.0-1.0); Blood Urea Nitrogen 16 mg/dl (8-23); Calcium 8.6 mg/dl (8.6-10.4); Carbon Dioxide 21 mmol/L (22-30); Chloride 103 mmol/L (96-108); Globulin 2.9 gm/dL (2.2-3.7); Glomerular Filtration Rate 74; Glucose 114 mg/dL (70-105)
[2020-05-12 16:24] LABS: Prothrombin Time 13.7 sec (11.9-14.5)
[2020-05-19] MEDS ORDERED: SCOPOLAMINE 1 PATCH PATCH TOPICAL PRN (05:00)
[2020-05-19] MEDS ORDERED: IPRATROPIUM/ALBUTEROL 3 ML AMPUL.NEB NEB PRN ×2 (05:00→09:01)
[2020-05-19] MEDS ORDERED: metroNIDAZOLE 500 MG/100 ML BAG IV SCH (06:15)
[2020-05-19] MEDS ORDERED: CIPROFLOXACIN 400 MG/200 ML BAG IV SCH (06:15)
[2020-05-19] MEDS ORDERED: MAGNESIUM SULFATE 2 GM/50 ML BAG IV ONE ×2 (07:24→07:35)
[2020-05-19] MEDS ORDERED: KETAMINE 100 MG/ML ML ONE (07:35)
[2020-05-19] MEDS ORDERED: DEXAMETHASONE 10 MG/ML VIAL ONE (07:35)
[2020-05-19] MEDS ORDERED: ROPIVACAINE HCL/PF 20 ML VIAL IJ ONE (07:35)
[2020-05-19] MEDS ORDERED: ROCURONIUM 10 MG/ML ML IV ONE (07:35)
[2020-05-19] MEDS ORDERED: SUGAMMADEX SODIUM 200 MG/2 ML VIAL IV ONE (07:35)
[2020-05-19] MEDS ORDERED: PHENYLEPHRINE 10 MG/ML VIAL ONE (07:35)
[2020-05-19] MEDS ORDERED: fentaNYL 250 MCG/5 ML VIAL IV ONE (07:35)
[2020-05-19] MEDS ORDERED: PROPOFOL 200 MG/20 ML VIAL IV ONE (07:35)
[2020-05-19] MEDS ORDERED: GLYCOPYRROLATE 0.2 MG/ML VIAL IV ONE (07:35)
[2020-05-19] MEDS ORDERED: MIDAZOLAM 2 MG/2 ML VIAL ONE (07:35)
[2020-05-19] MEDS ORDERED: ePHEDrine 50 MG/ML AMPUL IV ONE (07:35)
[2020-05-19] MEDS ORDERED: ONDANSETRON 4 MG/2 ML VIAL ONE (07:35)
[2020-05-19] MEDS ORDERED: SUCCINYLCHOLINE 20 MG/ML ML IV ONE (07:35)
[2020-05-19] MEDS ORDERED: LIDOCAINE HCL/PF 100 MG/5 ML SYRINGE IV ONE (07:35)
[2020-05-19] MEDS ORDERED: BENZOCAINE/MENTHOL 1 LOZENGE PO PRN (09:01)
[2020-05-19] MEDS ORDERED: fentaNYL 100 MCG/2 ML VIAL IV PRN (09:01)
[2020-05-19] MEDS ORDERED: ACETAMINOPHEN 1,000 MG/100 ML BOTTLE IV ONE (09:01)
[2020-05-19] MEDS ORDERED: LABETALOL 5 MG/ML ML IV PRN (09:01)
[2020-05-19] MEDS ORDERED: ONDANSETRON 4 MG/2 ML VIAL IV PRN ×2 (09:01→09:47)
[2020-05-19] MEDS ORDERED: NALOXONE HCL 0.4 MG/ML VIAL IV PRN (09:01)
[2020-05-19] MEDS ORDERED: LACTATED RINGERS 250 ML IV PRN (09:01)
[2020-05-19] MEDS ORDERED: METOPROLOL TARTRATE 5 MG/5 ML VIAL IV PRN (09:01)
[2020-05-19] MEDS ORDERED: METHOCARBAMOL 1,000 MG/10 ML VIAL IV PRN (09:01)
[2020-05-19] MEDS ORDERED: FLUMAZENIL 0.1 MG/ML ML IV PRN (09:01)
[2020-05-19] MEDS ORDERED: LACTATED RINGERS 1,000 ML IV SCH (09:15)
[2020-05-19] MEDS ORDERED: ACETAMINOPHEN 1,000 MG/100 ML BOTTLE IV PRN (09:47)
--- NOTE | 2020-05-19 09:47 | Brief Operative Note ---
Brief Operative Note Date of procedure: 05/19/20 Pre-op diagnosis: diverticulitis with pelvic phlegmon Post-op diagnosis: other (DIVERTICUITIS WITH PELVIC PHLEGMON AND COLO-VESICLE ABSCESS) Procedure: SIGMOID COLECTOMY WITH COLOSTOMY(HARTMANNS PROCEDURE) Grafts/Implants: No (#10 YANA DRAIN X1) Anesthesia: GETA Findings: VERY LARGE PHLEGMON BETWEEN BLADDER AND SIGMOID COLON WITH RESIDUAL ABSCESS Complications: none Surgeon: Nahum Livingston Estimated blood loss (cc): 50 Specimens Removed/Pathology: other (SIGMOID COLON) Condition: stable Disposition: PACU
[2020-05-19] MEDS ORDERED: LORazepam 2 MG/ML VIAL IV PRN (09:54)
[2020-05-19] MEDS ORDERED: PROMETHAZINE 25 MG/ML VIAL IV PRN (09:54)
[2020-05-19] MEDS: 0.9 % SODIUM CHLORIDE 1,000 ML IV SCH ×3 (11:06→22:39)
[2020-05-19] MEDS ORDERED: METOCLOPRAMIDE 5 MG TABLET PO SCH (11:30)
[2020-05-19] MEDS: METOCLOPRAMIDE 10 MG/2 ML VIAL IV SCH ×2 (12:32→17:42)
[2020-05-19] MEDS: metroNIDAZOLE 500 MG/100 ML BAG IV SCH ×2 (12:32→17:43)
[2020-05-19] MEDS: HYDROmorphone 1 MG/ML SYRINGE IV PRN ×2 (13:38→19:37)
[2020-05-19] MEDS: LEVOFLOXACIN 750 MG/150 ML BAG IV SCH (13:43)
[2020-05-19] MEDS: 0.9 % SODIUM CHLORIDE 10 ML SYRINGE IV SCH ×2 (13:54→21:34)
[2020-05-19] MEDS: PANTOPRAZOLE 40 MG VIAL IV SCH (17:42)
[2020-05-19] MEDS: LORazepam 2 MG/ML VIAL IV PRN (21:35)
[2020-05-20] MEDS: metroNIDAZOLE 500 MG/100 ML BAG IV SCH ×2 (00:28→05:50)
[2020-05-20] MEDS: METOCLOPRAMIDE 10 MG/2 ML VIAL IV SCH ×4 (00:28→17:28)
[2020-05-20] MEDS: HYDROmorphone 1 MG/ML SYRINGE IV PRN ×8 (00:28→22:38)
[2020-05-20] MEDS: 0.9 % SODIUM CHLORIDE 1,000 ML IV SCH ×4 (03:58→19:40)
[2020-05-20] MEDS: 0.9 % SODIUM CHLORIDE 10 ML SYRINGE IV SCH ×4 (06:42→22:42)
[2020-05-20 07:15] LABS: Basophils # (Auto) 0.01 K/mcL (0.00-0.20); Basophils % (Auto) 0.1 % (0.0-2.0); Eosinophils # (Auto) 0 K/mcL (0.00-0.70); Eosinophils % (Auto) 0 % (0.0-7.0); Hematocrit 39.6 % (41.0-55.0); Hemoglobin 12.6 g/dL (13.5-16.5); Lymphocytes # (Auto) 0.79 K/mcL (1.50-4.80); Lymphocytes % (Auto) 5.2 % (15.0-49.0); Mean Cell Volume 89.6 fL (80.0-100.0); Mean Corpuscular HGB Conc 31.8 g/dL (31.0-36.0); Monocytes # (Auto) 1.41 K/mcL (0.10-0.90); Monocytes % (Auto) 9.2 % (1.0-12.0); Neutrophils % (Auto) 85.5 % (38.0-78.0); Platelet Count 190 K/mcL (140-440); RBC 4.42 M/mcL (4.50-5.90); Red Cell Distribution Width 14.6 % (11.5-14.5); WBC 15.3 K/mcL (4.5-11.0)
[2020-05-20] MEDS: PANTOPRAZOLE 40 MG VIAL IV SCH ×2 (07:37→17:10)
[2020-05-20 07:58] LABS: ALT/SGPT 8 U/L (<40); AST/SGOT 9 U/L (<40); Albumin/Globulin Ratio 1.1 (1.0-2.3); Alkaline Phosphatase 50 U/L (39-117); Bilirubin,Direct < 0.2 mg/dL (<0.3); Bilirubin,Total 0.4 mg/dL (0.1-1.0); Blood Urea Nitrogen 9 mg/dL (8-23); Calcium 8.3 mg/dL (8.6-10.4); Carbon Dioxide 22 mmol/L (22-30); Chloride 106 mmol/L (96-108); Globulin 2.7 gm/dL (2.2-3.7); Glomerular Filtration Rate 88; Glucose 135 mg/dL (70-105); Lactate Dehydrogenase 123 U/L (135-225); Phosphorous 3.3 mg/dL (2.5-4.5); Triglycerides 52 mg/dL (<150); Uric Acid 5.8 mg/dL (2.5-8.0)
[2020-05-20] MEDS: LEVOFLOXACIN 750 MG/150 ML BAG IV SCH (09:13)
[2020-05-20] MEDS: ACETAMINOPHEN 1,000 MG/100 ML BOTTLE IV SCH ×2 (12:04→17:25)
--- NOTE | 2020-05-20 12:13 | General Surgery Progress Note ---
SUBJECTIVE Subjective Patient information: Note initiated : 05/20/20 at 12:09 pm Service Date, if different from initiated Date: [] Patient: Jacquelin Red 74 y/o M admitted on 05/19/20 for Segmental Sigmoid Colectomy. Chief Complaint: [] Principal diagnosis: sigmoid colon obstruction; diverticulitis Interval history: patient states that he feels well. His pain is controlled. He denies nausea or vomiting. He denies shortness of breath. Potassium 4.3, BUN 9, creatinine 0.8, white blood count 15.3, hemoglobin 12.6, hematocrit 39.6 Constitutional Vitals: Vital Signs Temp Pulse Resp BP Pulse Ox 98.4 F 85 16 128/74 94 05/20/20 07:54 05/20/20 08:00 05/20/20 08:00 05/20/20 07:54 05/20/20 08:00 Period Temp Pulse Resp BP Sys/Shrestha Pulse Ox Last 24 Hr 98.4 F-99.1 F 82-93 - 108-128/68-79 91-96 Intake and Output 05/19/20 05/20/20 05/20/20 21:59 05:59 13:59 Intake Total 5142 535 5200 Output Total 300 1565 Balance 950 -1265 1000 Weight 171 lb 3.2 oz Intake & Output: Intake & Output 05/19/20 05/20/20 05/20/20 21:59 05:59 13:59 Intake Total 1759 043 8927 Output Total 300 1565 Balance 950 -1265 1000 Weight 171 lb 3.2 oz Intake: IV 1861 890 9084 Sodium Chloride 0.9% 1,000 ml @ 1000 1000 125 mls/hr IV .Q8H [facility] Rx#: [id number] Oral 200 Tube Feeding 0 Output: Gastric Drainage 650 Right Nare 650 Drainage 15 Medial Abdomen 15 Urine Catheter Amount 300 900 Other: Urine Appearance Clear Clear Clear Uretheral (Martinez) Clear Clear Urine Color Dark Yellow Dark Yellow Dark Yellow Uretheral (Martinez) Dark Yellow Dark Yellow Urine Odor Normal Normal Head Head exam: Present atraumatic, normal inspection and normocephalic Eye Eye exam: Present EOMI Pupils: Present PERRL ENT ENT exam: Present mucous membranes moist and normal oropharynx Neck Neck exam: Present full ROM; Absent tenderness Respiratory Respiratory exam: Present normal respiratory exam and CTAB; Absent rales, rhonchi and wheezes Cardiovascular Cardiovascular exam: Present RRR, +S1 and +S2; Absent JVD GI/Abdominal GI/Abdominal exam: Present normal bowel sounds and hypoactive bowel sounds; Absent distended Additional comments: incision looks good; stoma is healthy but without drainage Extremities Exam Extremities exam: Present full ROM and normal inspection; Absent pedal edema and tenderness Back Exam Back exam: Present normal inspection; Absent tenderness Neurological Exam Neurological exam: Present alert, CN II-XII intact, normal gait, oriented X3 and reflexes normal Psychiatric Psychiatric exam: Present normal affect and normal mood A/P Assessment and plan (1) Diverticulitis of sigmoid colon: Status: Acute (2) Cardiomyopathy as manifestation of underlying disease: Status: Acute (3) Cardiomyopathy: Status: Chronic Qualifiers: Cardiomyopathy type: ischemic Qualified Code(s): I25.5 - Ischemic cardiomyopathy Narrative A/P Narrative: patient is clinically stable We'll continue to monitor and follow lab work We will continue nasogastric decompression Time Spent With Patient Time: Total time spent is greater than 50% in coordination of care (as documented) at patient's floor/unit and/or counseling patient:
[2020-05-20] MEDS: LORazepam 2 MG/ML VIAL IV PRN (22:37)
[2020-05-21] MEDS: METOCLOPRAMIDE 10 MG/2 ML VIAL IV SCH ×5 (00:01→23:35)
[2020-05-21] MEDS: ACETAMINOPHEN 1,000 MG/100 ML BOTTLE IV SCH ×5 (00:02→23:35)
[2020-05-21] MEDS: 0.9 % SODIUM CHLORIDE 1,000 ML IV SCH ×5 (02:19→23:36)
[2020-05-21] MEDS: HYDROmorphone 1 MG/ML SYRINGE IV PRN ×8 (03:34→23:20)
[2020-05-21] MEDS: 0.9 % SODIUM CHLORIDE 10 ML SYRINGE IV SCH ×3 (05:42→20:04)
[2020-05-21 06:09] LABS: Basophils # (Auto) 0.02 K/mcL (0.00-0.20); Basophils % (Auto) 0.2 % (0.0-2.0); Eosinophils # (Auto) 0.02 K/mcL (0.00-0.70); Eosinophils % (Auto) 0.2 % (0.0-7.0); Hemoglobin 11.5 g/dL (13.5-16.5); Lymphocytes # (Auto) 0.85 K/mcL (1.50-4.80); Lymphocytes % (Auto) 6.6 % (15.0-49.0); Mean Cell Volume 91.6 fL (80.0-100.0); Mean Corpuscular HGB Conc 31.1 g/dL (31.0-36.0); Mean Platelet Volume 9.1 fL (7.4-10.4); Monocytes # (Auto) 1.26 K/mcL (0.10-0.90); Monocytes % (Auto) 9.8 % (1.0-12.0); Neutrophils % (Auto) 83.2 % (38.0-78.0); Platelet Count 180 K/mcL (140-440); RBC 4.04 M/mcL (4.50-5.90); Red Cell Distribution Width 14.9 % (11.5-14.5); WBC 12.8 K/mcL (4.5-11.0)
[2020-05-21 06:42] LABS: ALT/SGPT 7 U/L (<40); AST/SGOT 10 U/L (<40); Albumin 2.8 gm/dL (3.2-5.2); Alkaline Phosphatase 45 U/L (39-117); Bilirubin,Direct < 0.2 mg/dL (<0.3); Bilirubin,Total 0.3 mg/dL (0.1-1.0); Blood Urea Nitrogen 9 mg/dL (8-23); Calcium 8.4 mg/dL (8.6-10.4); Carbon Dioxide 24 mmol/L (22-30); Chloride 108 mmol/L (96-108); Globulin 2.7 gm/dL (2.2-3.7); Glomerular Filtration Rate 84; Glucose 101 mg/dL (70-105); Lactate Dehydrogenase 117 U/L (135-225); Phosphorous 2.1 mg/dL (2.5-4.5); Triglycerides 79 mg/dL (<150); Uric Acid 5.9 mg/dL (2.5-8.0)
[2020-05-21] MEDS: PANTOPRAZOLE 40 MG VIAL IV SCH ×2 (07:45→16:38)
[2020-05-21] MEDS: LEVOFLOXACIN 750 MG/150 ML BAG IV SCH (09:12)
--- NOTE | 2020-05-21 13:21 | General Surgery Progress Note ---
SUBJECTIVE Subjective Patient information: Note initiated : 05/21/20 at 1:18 pm Service Date, if different from initiated Date: [] Patient: Jacquelin Red 74 y/o M admitted on 05/19/20 for Segmental Sigmoid Colectomy. Chief Complaint: [] Principal diagnosis: sigmoid colon obstruction; diverticulitis Interval history: patient is clinically stable. His pain is controlled. He has small amount of output through his stoma. Sodium 141, potassium 3.9, BUN 9, creatinine 0.9, phosphorus 2.1, white blood count 12.8, hematocrit 37, hemoglobin 11.5 Constitutional Vitals: Vital Signs Temp Pulse Resp BP Pulse Ox 98.9 F 91 H 16 144/86 93 05/21/20 12:00 05/21/20 12:00 05/21/20 12:00 05/21/20 12:00 05/21/20 12:00 Period Temp Pulse Resp BP Sys/Shrestha Pulse Ox Last 24 Hr 98.5 F-99.0 F 75-91 14-18 126-144/68-86 93-97 Intake and Output 05/20/20 05/21/20 05/21/20 21:59 05:59 13:59 Intake Total 1200 1440 250 Output Total 2820 900 1015 Balance -1620 540 -765 Weight 169 lb 9.6 oz Intake & Output: Intake & Output 05/20/20 05/21/20 05/21/20 21:59 05:59 13:59 Intake Total 1200 1440 250 Output Total 2820 900 1015 Balance -1620 540 -765 Weight 169 lb 9.6 oz Intake: IV 1100 1200 250 Sodium Chloride 0.9% 1,000 ml @ 1000 1000 125 mls/hr IV .Q8H [facility] Rx#: [id number] Oral 100 240 Tube Feeding 0 Output: Gastric Drainage 800 200 Right Nare 800 200 Drainage 20 15 Medial Abdomen 20 15 Urine Catheter Amount 2000 700 1000 Other: Urine Appearance Clear Clear Clear Uretheral ([place]) Clear Clear Urine Color Dark Yellow Dark Yellow Dark Yellow Uretheral ([place]) Dark Yellow Dark Yellow Urine Odor Normal Normal Head Head exam: Present atraumatic, normal inspection and normocephalic Eye Eye exam: Present EOMI Pupils: Present PERRL ENT ENT exam: Present mucous membranes moist and normal oropharynx Neck Neck exam: Present full ROM; Absent tenderness Respiratory Respiratory exam: Present normal respiratory exam and CTAB; Absent rales, rhonchi and wheezes Cardiovascular Cardiovascular exam: Present RRR, +S1 and +S2; Absent JVD GI/Abdominal GI/Abdominal exam: Present normal bowel sounds and hypoactive bowel sounds; Absent distended Additional comments: incision looks good; stoma is healthy but without drainage Extremities Exam Extremities exam: Present full ROM and normal inspection; Absent pedal edema and tenderness Neurological Exam Neurological exam: Present alert, CN II-XII intact, normal gait, oriented X3 and reflexes normal Psychiatric Psychiatric exam: Present normal affect and normal mood A/P Assessment and plan (1) Diverticulitis large intestine w/o perforation or abscess w/o bleeding: Status: Acute (2) Cardiomyopathy as manifestation of underlying disease: Status: Acute (3) Hypertension, essential: Status: Chronic (4) Cardiomyopathy: Status: Chronic Qualifiers: Cardiomyopathy type: ischemic Qualified Code(s): I25.5 - Ischemic cardiomyopathy Narrative A/P Narrative: discontinue Martinez catheter Follow-up evaluation in the morning Time Spent With Patient Time: Total time spent is greater than 50% in coordination of care (as documented) at patient's floor/unit and/or counseling patient:
[2020-05-21] MEDS: CARVEDILOL 6.25 MG TABLET PO SCH (20:03)
[2020-05-21] MEDS: LORazepam 2 MG/ML VIAL IV PRN (21:31)
[2020-05-22] MEDS: HYDROmorphone 1 MG/ML SYRINGE IV PRN ×6 (01:19→20:50)
[2020-05-22] MEDS: 0.9 % SODIUM CHLORIDE 1,000 ML IV SCH ×3 (03:37→17:29)
[2020-05-22] MEDS: ACETAMINOPHEN 1,000 MG/100 ML BOTTLE IV SCH ×3 (05:22→20:51)
[2020-05-22] MEDS: METOCLOPRAMIDE 10 MG/2 ML VIAL IV SCH ×3 (05:22→18:04)
[2020-05-22] MEDS: 0.9 % SODIUM CHLORIDE 10 ML SYRINGE IV SCH ×3 (05:25→20:52)
[2020-05-22 06:49] LABS: Basophils # (Auto) 0.02 K/mcL (0.00-0.20); Basophils % (Auto) 0.2 % (0.0-2.0); Eosinophils # (Auto) 0.11 K/mcL (0.00-0.70); Eosinophils % (Auto) 0.9 % (0.0-7.0); Hemoglobin 11.5 g/dL (13.5-16.5); Lymphocytes # (Auto) 1.04 K/mcL (1.50-4.80); Lymphocytes % (Auto) 8.8 % (15.0-49.0); Mean Corpuscular HGB Conc 31.1 g/dL (31.0-36.0); Mean Platelet Volume 9.2 fL (7.4-10.4); Monocytes # (Auto) 1.01 K/mcL (0.10-0.90); Monocytes % (Auto) 8.6 % (1.0-12.0); Neutrophils % (Auto) 81.5 % (38.0-78.0); Platelet Count 178 K/mcL (140-440); RBC 3.98 M/mcL (4.50-5.90); WBC 11.8 K/mcL (4.5-11.0)
[2020-05-22] MEDS: PANTOPRAZOLE 40 MG VIAL IV SCH ×2 (07:11→17:16)
[2020-05-22 07:30] LABS: ALT/SGPT 6 U/L (<40); AST/SGOT 9 U/L (<40); Albumin 2.8 gm/dL (3.2-5.2); Alkaline Phosphatase 43 U/L (39-117); Bilirubin,Direct < 0.2 mg/dL (<0.3); Bilirubin,Total 0.3 mg/dL (0.1-1.0); Blood Urea Nitrogen 7 mg/dL (8-23); Carbon Dioxide 21 mmol/L (22-30); Chloride 107 mmol/L (96-108); Globulin 2.7 gm/dL (2.2-3.7); Glomerular Filtration Rate 99; Glucose 68 mg/dL (70-105); Lactate Dehydrogenase 122 U/L (135-225); Phosphorous 1.8 mg/dL (2.5-4.5); Triglycerides 89 mg/dL (<150); Uric Acid 5.7 mg/dL (2.5-8.0)
[2020-05-22] MEDS: CARVEDILOL 6.25 MG TABLET PO SCH ×2 (08:36→17:16)
[2020-05-22] MEDS: LEVOFLOXACIN 750 MG/150 ML BAG IV SCH (09:28)
--- NOTE | 2020-05-22 12:31 | General Surgery Progress Note ---
SUBJECTIVE Subjective Patient information: Note initiated : 05/22/20 at 12:26 pm Service Date, if different from initiated Date: [] Patient: Jacquelin Red 74 y/o M admitted on 05/19/20 for Segmental Sigmoid Colectomy. Chief Complaint: [] Principal diagnosis: sigmoid colon obstruction; diverticulitis Interval history: patient is feeling better. He is having more flatus via his stoma. He has mild depression because of his stoma but is tolerating it well. Stoma teaching is in progress. Potassium 3.5, BUN 7, creatinine 0.6, phosphorus 1.8, white blood count 9.8, hemoglobin 11.5, hematocrit 37. Constitutional Vitals: Vital Signs Temp Pulse Resp BP Pulse Ox 98.6 F 84 16 135/77 92 05/22/20 11:50 05/22/20 11:50 05/22/20 11:50 05/22/20 11:50 05/22/20 11:50 Period Temp Pulse Resp BP Sys/Shrestha Pulse Ox Last 24 Hr 97.4 F-99.5 F 84-107 16-24 135-158/77-88 92-96 Intake and Output 05/21/20 05/22/20 05/22/20 21:59 05:59 13:59 Intake Total 7321 365 9542 Output Total 545 810 570 Balance 605 -660 1130 Weight 177 lb Intake & Output: Intake & Output 05/21/20 05/22/20 05/22/20 21:59 05:59 13:59 Intake Total 6240 306 6035 Output Total 545 810 570 Balance 605 -660 1130 Weight 177 lb Intake: IV 7192 726 0788 Sodium Chloride 0.9% 1,000 ml @ 1000 1000 125 mls/hr IV .Q8H [facility] Rx#: [id number] Oral 50 50 IV - Manual Only 600 Output: Gastric Drainage 450 100 Right Nare 450 100 Drainage 20 10 Medial Abdomen 20 10 Urine Catheter Amount 700 570 Void Amount 50 Stool 25 Other: Urine Appearance Clear Clear Uretheral (Martinez) Clear Urine Color Straw Dark Yellow Bright Yellow Uretheral (Martinez) Bright Yellow Urine Odor Normal Normal Uretheral (Martinez) Normal Stool Color Bright Red Blood Stool Consistency Liquid Head Head exam: Present atraumatic, normal inspection and normocephalic Eye Eye exam: Present EOMI Pupils: Present PERRL ENT ENT exam: Present mucous membranes moist and normal oropharynx Neck Neck exam: Present full ROM; Absent tenderness Respiratory Respiratory exam: Present normal respiratory exam and CTAB; Absent rales, rhonchi and wheezes Cardiovascular Cardiovascular exam: Present RRR, +S1 and +S2; Absent JVD GI/Abdominal GI/Abdominal exam: Present normal bowel sounds and hypoactive bowel sounds; Absent distended Additional comments: incision looks good; stoma is healthy but without drainage Extremities Exam Extremities exam: Present full ROM and normal inspection; Absent pedal edema and tenderness Neurological Exam Neurological exam: Present alert, CN II-XII intact, normal gait, oriented X3 and reflexes normal Psychiatric Psychiatric exam: Present normal affect and normal mood Skin Skin exam: Present intact A/P Assessment and plan (1) Diverticulitis large intestine w/o perforation or abscess w/o bleeding: Status: Acute (2) Cardiomyopathy as manifestation of underlying disease: Status: Acute (3) CAD (coronary artery disease): Status: Chronic Qualifiers: Coronary Disease-Associated Artery/Lesion type: bypass graft [place] vs. transplanted heart: [place] heart Associated angina: without angina Qualified Code(s): I25.810 - Atherosclerosis of coronary artery bypass graft(s) without angina pectoris Narrative A/P Narrative: potassium phosphate rider 2 Discontinue nasogastric tube Clear liquids Doxazosin by mouth Time Spent With Patient Time: Total time spent is greater than 50% in coordination of care (as documented) at patient's floor/unit and/or counseling patient:
[2020-05-22] MEDS: DOXAZOSIN 4 MG TABLET PO SCH (13:05)
[2020-05-22] MEDS: POTASSIUM PHOSPHATE 40 MEQ in DEXTROSE 5% IN WATER 500 ML IV SCH ×2 (13:05→17:23)
--- NOTE | 2020-05-22 14:54 | Surgical Pathology Report ---
Histology Microscopic Diagnosis Specimen A- COLON, SIGMOID, SEGMENTAL RESECTION: -- ACUTE DIVERTICULITIS AND ASSOCIATED PERICOLONIC ABSCESS. -- MARGINS VIABLE. -- MULTIPLE MESENTERIC LYMPH NODES WITH REACTIVE LYMPHOID HYPERPLASIA. (DMT:sln) Procedural Impression Diverticulitis. Gross Description Received in formalin designated sigmoid per requisition, is a segment of colon received with both margins stapled. It is 13 cm in length and is 2.7 cm in diameter. The mucosa is arvizu-elizabeth with elizabeth attached fat. Approximately 4.3 cm from one margin there is a arvizu rough surfaced area with a 1.2 cm area of perforation. The external surface on the area of perforation is inked black. This margin is inked black. The wall is up to 0.9 cm thick. The mucosa is elizabeth and plicated. The specimen is opened to reveal two lumens. Corresponding to the previously mentioned area of perforation is a 4 x 3.5 cm dusky arvizu-elizabeth sunken area. This is grossly necrotic. The mucosal surface is absent within this area. The wall surrounding this area is thickened and is up to 2.9 cm thick. There are rodrick of possible diverticula identified. There are seven candidate lymph nodes identified from 0.2 to 0.5 cm. Day Habilitation Supervisor sections are submitted in eight cassettes: A1 - margins; A2 - civil rights representative sections of possible diverticula; A3 - random sections; A4 - civil rights representative section of thickened wall near the area of perforation; A5-A6 - transition from normal mucosa to the sunken possibly necrotic area on the mucosal surface; A7 - civil rights representative section of area of perforation; A8 - civil rights representative sections of candidate lymph nodes. Electronically Signed Saravanan Solis MD, FCAP Electronically Signed 05/22/2020 2:54 PM
[2020-05-22] MEDS: LORazepam 2 MG/ML VIAL IV PRN (21:59)
[2020-05-23] MEDS: HYDROmorphone 1 MG/ML SYRINGE IV PRN ×3 (00:31→08:02)
[2020-05-23] MEDS: ACETAMINOPHEN 1,000 MG/100 ML BOTTLE IV SCH ×5 (00:31→23:43)
[2020-05-23] MEDS: METOCLOPRAMIDE 10 MG/2 ML VIAL IV SCH ×5 (00:31→23:43)
[2020-05-23] MEDS: 0.9 % SODIUM CHLORIDE 1,000 ML IV SCH ×3 (03:02→10:17)
[2020-05-23] MEDS: 0.9 % SODIUM CHLORIDE 10 ML SYRINGE IV SCH ×3 (05:34→21:51)
[2020-05-23] MEDS: CARVEDILOL 6.25 MG TABLET PO SCH ×2 (07:26→17:15)
[2020-05-23] MEDS: PANTOPRAZOLE 40 MG VIAL IV SCH ×2 (07:26→16:59)
[2020-05-23 07:46] LABS: ALT/SGPT 5 U/L (<40); AST/SGOT 10 U/L (<40); Albumin 2.4 gm/dL (3.2-5.2); Albumin/Globulin Ratio 0.9 (1.0-2.3); Alkaline Phosphatase 37 U/L (39-117); Bilirubin,Direct < 0.2 mg/dL (<0.3); Bilirubin,Total 0.4 mg/dL (0.1-1.0); Blood Urea Nitrogen 4 mg/dL (8-23); Calcium 7.9 mg/dL (8.6-10.4); Carbon Dioxide 23 mmol/L (22-30); Chloride 104 mmol/L (96-108); Globulin 2.8 gm/dL (2.2-3.7); Glomerular Filtration Rate 99; Glucose 89 mg/dL (70-105); Lactate Dehydrogenase 142 U/L (135-225); Phosphorous 2.3 mg/dL (2.5-4.5); Triglycerides 112 mg/dL (<150); Uric Acid 5.2 mg/dL (2.5-8.0)
[2020-05-23 08:11] LABS: Basophils # (Auto) 0.02 K/mcL (0.00-0.20); Basophils % (Auto) 0.2 % (0.0-2.0); Eosinophils # (Auto) 0.23 K/mcL (0.00-0.70); Eosinophils % (Auto) 2.7 % (0.0-7.0); Hematocrit 33.6 % (41.0-55.0); Hemoglobin 10.9 g/dL (13.5-16.5); Lymphocytes # (Auto) 0.97 K/mcL (1.50-4.80); Lymphocytes % (Auto) 11.2 % (15.0-49.0); Mean Cell Volume 88.9 fL (80.0-100.0); Mean Corpuscular HGB Conc 32.4 g/dL (31.0-36.0); Mean Platelet Volume 8.8 fL (7.4-10.4); Monocytes % (Auto) 9.3 % (1.0-12.0); Neutrophils % (Auto) 76.6 % (38.0-78.0); Platelet Count 185 K/mcL (140-440); RBC 3.78 M/mcL (4.50-5.90); Red Cell Distribution Width 14.6 % (11.5-14.5); WBC 8.6 K/mcL (4.5-11.0)
[2020-05-23] MEDS: LEVOFLOXACIN 750 MG/150 ML BAG IV SCH (08:49)
[2020-05-23] MEDS: DOXAZOSIN 4 MG TABLET PO SCH (09:00)
--- NOTE | 2020-05-23 13:37 | General Surgery Progress Note ---
SUBJECTIVE Subjective Patient information: Note initiated : 05/23/20 at 1:34 pm Service Date, if different from initiated Date: [] Patient: Jacquelin Red 74 y/o M admitted on 05/19/20 for Segmental Sigmoid Colectomy. Chief Complaint: [] Principal diagnosis: sigmoid colon obstruction; diverticulitis Interval history: patient continues to improve. He's tolerated full liquids without difficulty. His pain is controlled. White blood count 8.6, hemoglobin 10.9, hematocrit 33.6, potassium 3.3, BUN 4, creatinine 0.6, phosphorus 2.3, magnesium 1.7 Constitutional Vitals: Vital Signs Temp Pulse Resp BP Pulse Ox 97.5 F 84 12 162/98 95 05/23/20 12:40 05/23/20 12:40 05/23/20 12:00 05/23/20 12:40 05/23/20 12:40 Period Temp Pulse Resp BP Sys/Shrestha Pulse Ox Last 24 Hr 97.4 F-98.3 F 76-94 12-16 137-171/61-98 94-97 Intake and Output 05/22/20 05/23/20 05/23/20 21:59 05:59 13:59 Intake Total 2392.0909 1009.0909 350 Output Total 360 1275 20 Balance 2032.0909 -265.9091 330 Weight 178 lb 9.6 oz 178 lb 9.6 oz Patient Weight 05/24/20 05:59 Weight 178 lb 9.6 oz Intake & Output: Intake & Output 05/22/20 05/23/20 05/23/20 21:59 05:59 13:59 Intake Total 2392.0909 1009.0909 350 Output Total 360 1275 20 Balance 2032.0909 -265.9091 330 Weight 178 lb 9.6 oz 178 lb 9.6 oz Intake: IV 1859.0909 609.0909 350 Sodium Chloride 0.9% 1,000 ml @ 1000 125 mls/hr IV .Q8H ENEIDA Rx#: [id number] Potassium Phosphate 40 Meq In 509.0909 509.0909 Dextrose 5% in Water 500 ml @ 127.273 mls/hr IV Q4H ENEIDA Rx#: [id number] Oral 183 400 IV - Manual Only 350 Output: Drainage 10 Medial Abdomen 10 Urine Catheter Amount 350 1275 Stool 0 20 Other: Urine Appearance Clear Clear Clear Urine Color Bright Yellow Bright Yellow Bright Yellow Uretheral (Martinez) Bright Yellow Urine Odor Normal Normal Stool Size Smear Stool Color Dark Red Blood Stool Consistency Liquid Head Head exam: Present atraumatic, normal inspection and normocephalic Eye Eye exam: Present EOMI Pupils: Present PERRL ENT ENT exam: Present mucous membranes moist and normal oropharynx Respiratory Respiratory exam: Present normal respiratory exam and CTAB; Absent rales, rhonchi and wheezes Cardiovascular Cardiovascular exam: Present RRR, +S1 and +S2; Absent JVD GI/Abdominal GI/Abdominal exam: Present normal bowel sounds and hypoactive bowel sounds; Absent distended Additional comments: incision looks good; stoma is healthy but without drainage Extremities Exam Extremities exam: Present full ROM and normal inspection; Absent pedal edema and tenderness Neurological Exam Neurological exam: Present alert, CN II-XII intact, normal gait, oriented X3 and reflexes normal Skin Skin exam: Present intact A/P Assessment and plan (1) Diverticulitis large intestine w/o perforation or abscess w/o bleeding: Status: Acute (2) Cardiomyopathy as manifestation of underlying disease: Status: Acute (3) Hypertension, essential: Status: Chronic Narrative A/P Narrative: switch to oral pain meds Full liquid diet Saline lock IV Discontinue Martinez catheter Replace potassium phosphate Replace magnesium Time Spent With Patient Time: Total time spent is greater than 50% in coordination of care (as documented) at patient's floor/unit and/or counseling patient:
[2020-05-23] MEDS: oxyCODONE HCL 5 MG TABLET PO PRN ×3 (13:46→21:51)
[2020-05-23] MEDS: LORazepam 2 MG/ML VIAL IV PRN (21:51)
[2020-05-24] MEDS: oxyCODONE HCL 5 MG TABLET PO PRN ×4 (04:13→21:18)
[2020-05-24] MEDS: ACETAMINOPHEN 1,000 MG/100 ML BOTTLE IV SCH ×4 (05:39→23:51)
[2020-05-24] MEDS: 0.9 % SODIUM CHLORIDE 10 ML SYRINGE IV SCH ×4 (05:39→23:52)
[2020-05-24] MEDS: METOCLOPRAMIDE 10 MG/2 ML VIAL IV SCH ×4 (05:39→23:51)
[2020-05-24 06:50] LABS: Basophils # (Auto) 0.03 K/mcL (0.00-0.20); Basophils % (Auto) 0.3 % (0.0-2.0); Eosinophils # (Auto) 0.28 K/mcL (0.00-0.70); Eosinophils % (Auto) 3.2 % (0.0-7.0); Hematocrit 36.5 % (41.0-55.0); Hemoglobin 11.5 g/dL (13.5-16.5); Lymphocytes # (Auto) 0.83 K/mcL (1.50-4.80); Lymphocytes % (Auto) 9.3 % (15.0-49.0); Mean Corpuscular HGB Conc 31.5 g/dL (31.0-36.0); Mean Platelet Volume 8.8 fL (7.4-10.4); Monocytes # (Auto) 0.75 K/mcL (0.10-0.90); Monocytes % (Auto) 8.4 % (1.0-12.0); Neutrophils % (Auto) 78.8 % (38.0-78.0); Platelet Count 208 K/mcL (140-440); Red Cell Distribution Width 14.2 % (11.5-14.5); WBC 8.9 K/mcL (4.5-11.0)
[2020-05-24 07:14] LABS: ALT/SGPT 6 U/L (<40); AST/SGOT 9 U/L (<40); Albumin 2.8 gm/dL (3.2-5.2); Alkaline Phosphatase 44 U/L (39-117); Bilirubin,Direct < 0.2 mg/dL (<0.3); Bilirubin,Total 0.3 mg/dL (0.1-1.0); Blood Urea Nitrogen 4 mg/dL (8-23); Calcium 8.2 mg/dL (8.6-10.4); Carbon Dioxide 27 mmol/L (22-30); Chloride 103 mmol/L (96-108); Globulin 2.7 gm/dL (2.2-3.7); Glomerular Filtration Rate 107; Glucose 98 mg/dL (70-105); Lactate Dehydrogenase 120 U/L (135-225); Phosphorous 2.3 mg/dL (2.5-4.5); Triglycerides 138 mg/dL (<150); Uric Acid 4.6 mg/dL (2.5-8.0)
[2020-05-24] MEDS ORDERED: POTASSIUM PHOSPHATE 40 MEQ in DEXTROSE 5% IN WATER 500 ML IV ONE (07:37)
[2020-05-24] MEDS: CARVEDILOL 6.25 MG TABLET PO SCH ×2 (07:43→16:59)
[2020-05-24] MEDS: PANTOPRAZOLE 40 MG VIAL IV SCH ×2 (07:43→17:00)
[2020-05-24] MEDS: DOXAZOSIN 4 MG TABLET PO SCH (09:25)
[2020-05-24] MEDS: LEVOFLOXACIN 750 MG/150 ML BAG IV SCH ×2 (10:12→14:47)
[2020-05-24] MEDS: HYDROmorphone 1 MG/ML SYRINGE IV PRN (12:01)
[2020-05-24] MEDS ORDERED: diphenhydrAMINE 25 MG CAPSULE PO PRN (15:03)
--- NOTE | 2020-05-24 15:12 | General Surgery Progress Note ---
SUBJECTIVE Subjective Patient information: Note initiated : 05/24/20 at 3:08 pm Service Date, if different from initiated Date: [] Patient: Jacquelin Red 74 y/o M admitted on 05/19/20 for Segmental Sigmoid Colectomy. Chief Complaint: [] Principal diagnosis: sigmoid colon obstruction; diverticulitis Interval history: patient continues to do well. He is tolerating liquid diet without difficulty. He is working well with his stoma. He does complain of insomnia. Potassium 3.2, BUN 4, creatinine 0.5, phosphorus 2.3, white blood count 8.9, hemoglobin 11.5, hematocrit 36.5. Constitutional Vitals: Vital Signs Temp Pulse Resp BP Pulse Ox 97.6 F 77 20 150/92 94 05/24/20 12:00 05/24/20 12:00 05/24/20 12:00 05/24/20 12:00 05/24/20 12:00 Period Temp Pulse Resp BP Sys/Shrestha Pulse Ox Last 24 Hr 97.4 F-98.7 F 74-78 18-20 132-165/74-94 94-95 Intake and Output 05/24/20 05/24/20 05/24/20 05:59 13:59 21:59 Intake Total 675 340 250 Output Total 703 50 Balance -28 290 250 Intake & Output: Intake & Output 05/24/20 05/24/20 05/24/20 05:59 13:59 21:59 Intake Total 675 340 250 Output Total 703 50 Balance -28 290 250 Intake: IV 100 100 250 Oral 575 240 Output: Drainage 3 Medial Abdomen 3 Void Amount 700 50 Stool 0 Other: Meal Breakfast Percent of Meal Consumed 100% Feeding Ability Assist with Tray Set Up Urine Appearance Clear Clear Urine Color Bright Yellow Bright Yellow Urine Odor Normal Stool Color Brown Green Stool Consistency Liquid Head Head exam: Present atraumatic, normal inspection and normocephalic Eye Eye exam: Present EOMI Pupils: Present PERRL ENT ENT exam: Present mucous membranes moist and normal oropharynx Neck Neck exam: Present full ROM; Absent tenderness Respiratory Respiratory exam: Present normal respiratory exam and CTAB; Absent rales, rhonchi and wheezes Cardiovascular Cardiovascular exam: Present RRR, +S1 and +S2; Absent JVD GI/Abdominal GI/Abdominal exam: Present normal bowel sounds and hypoactive bowel sounds; Absent distended Additional comments: incision looks good; stoma is healthy but without drainage Extremities Exam Extremities exam: Present full ROM and normal inspection; Absent pedal edema and tenderness Neurological Exam Neurological exam: Present alert, CN II-XII intact, normal gait, oriented X3 and reflexes normal Psychiatric Psychiatric exam: Present normal affect and normal mood Skin Skin exam: Present intact A/P Assessment and plan (1) Diverticulitis large intestine w/o perforation or abscess w/o bleeding: Status: Acute (2) Hypertension, essential: Status: Chronic (3) Cardiomyopathy: Status: Chronic Qualifiers: Cardiomyopathy type: ischemic Qualified Code(s): I25.5 - Ischemic cardiomyopathy Narrative A/P Narrative: advance to GI soft diet Discontinue IV Dilaudid Start oral potassium chloride Possible discharge tomorrow Time Spent With Patient Time: Total time spent is greater than 50% in coordination of care (as documented) at patient's floor/unit and/or counseling patient:
[2020-05-24] MEDS: POTASSIUM CHLORIDE 20 MEQ TABLET PO SCH (16:59)
[2020-05-24] MEDS: LORazepam 2 MG/ML VIAL IV PRN (21:15)
[2020-05-25] MEDS: oxyCODONE HCL 5 MG TABLET PO PRN ×2 (02:35→18:46)
[2020-05-25] MEDS: ACETAMINOPHEN 1,000 MG/100 ML BOTTLE IV SCH ×3 (05:37→19:06)
[2020-05-25] MEDS: METOCLOPRAMIDE 10 MG/2 ML VIAL IV SCH ×3 (05:37→19:06)
[2020-05-25] MEDS: 0.9 % SODIUM CHLORIDE 10 ML SYRINGE IV SCH ×2 (05:38→15:32)
[2020-05-25] MEDS: POTASSIUM CHLORIDE 20 MEQ TABLET PO SCH ×2 (08:03→16:41)
[2020-05-25] MEDS: CARVEDILOL 6.25 MG TABLET PO SCH ×2 (08:04→16:41)
[2020-05-25] MEDS: PANTOPRAZOLE 40 MG VIAL IV SCH ×2 (08:04→16:40)
[2020-05-25] MEDS: DOXAZOSIN 4 MG TABLET PO SCH (08:30)
[2020-05-25] MEDS: LEVOFLOXACIN 750 MG/150 ML BAG IV SCH (08:30)
[2020-05-25 09:31] LABS: ALT/SGPT 7 U/L (<40); AST/SGOT 11 U/L (<40); Albumin/Globulin Ratio 1.1 (1.0-2.3); Alkaline Phosphatase 47 U/L (39-117); Basophils # (Auto) 0.02 K/mcL (0.00-0.20); Basophils % (Auto) 0.3 % (0.0-2.0); Bilirubin,Direct < 0.2 mg/dL (<0.3); Bilirubin,Total 0.3 mg/dL (0.1-1.0); Blood Urea Nitrogen 5 mg/dL (8-23); Calcium 8.5 mg/dL (8.6-10.4); Carbon Dioxide 27 mmol/L (22-30); Chloride 104 mmol/L (96-108); Eosinophils % (Auto) 2.6 % (0.0-7.0); Globulin 2.8 gm/dL (2.2-3.7); Glomerular Filtration Rate 99; Glucose 100 mg/dL (70-105); Hematocrit 35.5 % (41.0-55.0); Hemoglobin 11.5 g/dL (13.5-16.5); Lactate Dehydrogenase 137 U/L (135-225); Lymphocytes # (Auto) 0.89 K/mcL (1.50-4.80); Lymphocytes % (Auto) 11.4 % (15.0-49.0); Mean Corpuscular HGB Conc 32.4 g/dL (31.0-36.0); Mean Platelet Volume 9.1 fL (7.4-10.4); Monocytes # (Auto) 0.65 K/mcL (0.10-0.90); Monocytes % (Auto) 8.3 % (1.0-12.0); Neutrophils % (Auto) 77.4 % (38.0-78.0); Phosphorous 3.1 mg/dL (2.5-4.5); Platelet Count 217 K/mcL (140-440); RBC 3.99 M/mcL (4.50-5.90); Red Cell Distribution Width 14.5 % (11.5-14.5); Triglycerides 161 mg/dL (<150); Uric Acid 4.1 mg/dL (2.5-8.0); WBC 7.8 K/mcL (4.5-11.0)
--- NOTE | 2020-05-25 17:30 | Discharge Summary ---
Discharge Provider Provider Patient information: Note initiated : 05/25/20 at 5:19 pm Service Date, if different from initiated Date: [] Patient: Jacquelin Red 74 y/o M admitted on 05/19/20 for Segmental Sigmoid Colectomy. Chief Complaint: [] Date of admission: 05/19/20 04:50 Discharge date: 05/25/20 Primary care physician: Jeana Livingston Admitting clinician: Nahum Livingston Attending physician on admission: Nahum Livingston Attending physician on discharge: Nahum Livingston Discharging clinician: Nahum Livingston COURSE Hospital Course Hospital course: 74-year-old male with known history of diverticulitis with pelvic phlegmon. He was explored on 19 May and was found to have severe diverticulitis with pelvic phlegmon and colovesical abscess. Sigmoid colectomy with colostomy was carried out and the area was thoroughly debrided and drained. The patient has done very well. He is presently afebrile and has a normal white count. He is tolerating diet without difficulty. He has started to work with his stoma. He is clinically stable for discharge home Discharge diagnosis: .diverticulitis with phlegmon colovesical abscess Reason for admission: postoperative sigmoid colectomy with colostomy Procedures: sigmoid colectomy with colostomy and drainage of pelvic abscess Complications: none Time Spent with Patient Time attestation: Total time spent providing and/or coordinating discharge services: Physical Examination Vital Signs Vital signs: Temp Pulse Resp BP Pulse Ox 98.0 F 85 14 107/72 92 05/25/20 16:00 05/25/20 16:00 05/25/20 16:00 05/25/20 16:00 05/25/20 16:00 General physical appearance General physical exam: no distress and moderate pain Eyes Eye exam: PERRL, normal ocular movement and other (non icteric, not injected) ENT ENT exam: normal pinna, normal nares and no hearing loss Head Head exam IM: Present atraumatic, normal inspection and normocephalic Neck Neck exam: trachea midline and no lymphadenopathy Cardiovascular Cardiovascular exam IM: Present normal rate and rhythm, RRR, +S1 and +S2; Absent JVD Respiratory Respiratory exam: normal expansion, normal respiratory effort and clear to auscultation Abdomen Abdomen: Present tender (moderate incisional tenderness), bowel sounds and surgical scars (stoma in left lower quadrant is functioning normally) Integumentary Integumentary: Present no rash and no growths Neurologic Neurologic: Present normal coordination and normal sensation Musculoskeletal Musculoskeletal: Present normal gait, normal posture and other Psychiatric Psychiatric: Present oriented to time, oriented to person, oriented to place, speech is normal, memory intact and other (mild situational depression) Discharge Plan Patient/Caregiver Discharge Instructions Activity: increase activity as tolerated Diet: Regular Diet Prescriptions: New ciprofloxacin HCl [ciprofloxacin HCl] 500 MG tablet 500 mg PO BID Qty: 40 RF: 0 oxycodone-acetaminophen [Endocet] 10-325 mg Tablet 1 tab PO Q4H PRN (Reason: Pain) Qty: 60 RF: 0 metronidazole 500 mg tablet 500 mg PO TID Qty: 60 RF: 0 Continued carvedilol 6.25 mg tablet 6.25 mg PO BID Qty: 180 RF: 3 omeprazole 20 mg capsule,delayed release(DR/EC) 20 mg PO QDAY RF: 0 ciprofloxacin HCl 500 mg tablet 500 mg PO BID Qty: 40 RF: 0 metronidazole 500 mg tablet 500 mg PO Q8H Qty: 30 RF: 0 peg 3350-electrolytes [Golytely] 236-22.74-6.74 -5.86 gram recon soln 240 ml PO Q10M Qty: 4000 RF: 0 sildenafil 100 MG tablet 100 mg PO PRN PRN (Reason: ED) RF: 0 arginine HCl (L-arginine) 1,000 MG tablet 1 tab PO DAILY RF: 0 Entresto 24-26 mg Tablet 1 tab PO BID RF: 0 doxazosin 8 mg tablet 8 mg PO QHS RF: 0 rosuvastatin 10 mg Tablet 10 mg PO QDAY RF: 0 Follow Up Plan Follow up with: Nahum Livingston MD [Physician] - 06/06/20 (contact office to verify appointment time) Patient Disposition: Home Health Service Rehab Potential: Good I certify that the patient requires SNF services: No Overall status at discharge: patient is not back to baseline Discharge Orders: Discharge Order (Routine); Ordered 05/25/20 Ordered By: Nahum Livingston Pending Pending Pending: Resuscitation Status Full Code Diet GI Soft/Transitional Start FriMay 24 1508 Carvedilol (Coreg) 6.25 mg PO BIDCC FOR[facility], 1928–1983 Last Admin: 05/25/20 16:41 Dose: 6.25 mg Documented by: Admin: 05/25/20 08:04 Dose: 6.25 mg Documented by: Admin: 05/24/20 16:59 Dose: 6.25 mg Documented by: Admin: 05/24/20 07:43 Dose: 6.25 mg Documented by: Admin: 05/23/20 17:15 Dose: 6.25 mg Documented by: Admin: 05/23/20 07:26 Dose: 6.25 mg Documented by: Admin: 05/22/20 17:16 Dose: 6.25 mg Documented by: Admin: 05/22/20 08:36 Dose: 6.25 mg Documented by: Admin: 05/21/20 20:03 Dose: 6.25 mg Documented by: DONNY Doxazosin Mesylate (Cardura) 4 mg PO DAILY [facility], [facility] Last Admin: 05/25/20 08:30 Dose: 4 mg Documented by: Admin: 05/24/20 09:25 Dose: 4 mg Documented by: Admin: 05/23/20 09:00 Dose: 4 mg Documented by: Admin: 05/22/20 13:05 Dose: 4 mg Documented by: GILES Acetaminophen (Ofirmev) 1,000 mg in 100 mls @ 200 mls/hr IV Q6H [facility]; Protocol Last Infusion: 05/25/20 13:01 Dose: 0 mls/hr Documented by: Admin: 05/25/20 12:26 Dose: 200 mls/hr Documented by: Infusion: 05/25/20 06:15 Dose: 0 mls/hr Documented by: Admin: 05/25/20 05:37 Dose: 200 mls/hr Documented by: Infusion: 05/25/20 00:53 Dose: 0 mls/hr Documented by: Admin: 05/24/20 23:51 Dose: 200 mls/hr Documented by: Infusion: 05/24/20 18:30 Dose: 0 mls/hr Documented by: Admin: 05/24/20 17:47 Dose: 200 mls/hr Documented by: Infusion: 05/24/20 14:14 Dose: 0 mls/hr Documented by: Admin: 05/24/20 12:46 Dose: 200 mls/hr Documented by: Infusion: 05/24/20 09:19 Dose: 0 mls/hr Documented by: Admin: 05/24/20 05:39 Dose: 200 mls/hr Documented by: Infusion: 05/24/20 00:13 Dose: 200 mls/hr Documented by: Admin: 05/23/20 23:43 Dose: 200 mls/hr Documented by: Infusion: 05/23/20 18:56 Dose: 0 mls/hr Documented by: Admin: 05/23/20 17:59 Dose: 200 mls/hr Documented by: Infusion: 05/23/20 12:55 Dose: 0 mls/hr Documented by: Admin: 05/23/20 11:33 Dose: 200 mls/hr Documented by: Infusion: 05/23/20 06:42 Dose: 0 mls/hr Documented by: Admin: 05/23/20 05:33 Dose: 200 mls/hr Documented by: Infusion: 05/23/20 01:17 Dose: 0 mls/hr Documented by: Admin: 05/23/20 00:31 Dose: 200 mls/hr Documented by: Infusion: 05/22/20 21:37 Dose: 0 mls/hr Documented by: Admin: 05/22/20 20:51 Dose: 200 mls/hr Documented by: Infusion: 05/22/20 15:40 Dose: 0 mls/hr Documented by: Admin: 05/22/20 12:24 Dose: 200 mls/hr Documented by: Infusion: 05/22/20 07:49 Dose: 0 mls/hr Documented by: Admin: 05/22/20 05:22 Dose: 200 mls/hr Documented by: Infusion: 05/22/20 00:46 Dose: 0 mls/hr Documented by: [email or web address] Admin: 05/21/20 23:35 Dose: 200 mls/hr Documented by: Infusion: 05/21/20 18:08 Dose: 0 mls/hr Documented by: Admin: 05/21/20 17:09 Dose: 200 mls/hr Documented by: Infusion: 05/21/20 12:29 Dose: 0 mls/hr Documented by: Admin: 05/21/20 11:59 Dose: 200 mls/hr Documented by: Infusion: 05/21/20 05:49 Dose: 0 mls/hr Documented by: Admin: 05/21/20 05:19 Dose: 200 mls/hr Documented by: Infusion: 05/21/20 01:02 Dose: 0 mls/hr Documented by: Admin: 05/21/20 00:02 Dose: 100 mls/hr Documented by: Infusion: 05/20/20 17:55 Dose: 0 mls/hr Documented by: Admin: 05/20/20 17:25 Dose: 200 mls/hr Documented by: Infusion: 05/20/20 12:34 Dose: 0 mls/hr Documented by: Admin: 05/20/20 12:04 Dose: 200 mls/hr Documented by: EDIL Levofloxacin (Levaquin) 750 mg in 150 mls @ 100 mls/hr IV Q24H ENEIDA; Protocol Last Infusion: 05/25/20 10:05 Dose: 0 mls/hr Documented by: [email or web address] Admin: 05/25/20 08:30 Dose: 100 mls/hr Documented by: Infusion: 05/24/20 14:25 Dose: 0 mls/hr Documented by: Admin: 05/24/20 10:12 Dose: 100 mls/hr Documented by: LAMBERT Lorazepam (Ativan) 0.5 mg IV Q4HP PRN PRN Reason: ANXIETY/SEDATION Last Admin: 05/23/20 11:43 Dose: 0.5 mg Documented by: GILES Lorazepam (Ativan) 1 mg IV HS PRN PRN Reason: ANXIETY/SEDATION Last Admin: 05/24/20 21:15 Dose: 1 mg Documented by: Admin: 05/23/20 21:51 Dose: 1 mg Documented by: Admin: 05/22/20 21:59 Dose: 1 mg Documented by: Admin: 05/21/20 21:31 Dose: 1 mg Documented by: Admin: 05/20/20 22:37 Dose: 1 mg Documented by: Admin: 05/19/20 21:35 Dose: 1 mg Documented by: CORY Metoclopramide HCl (Reglan) 10 mg IV Q6 ENEIDA Last Admin: 05/25/20 12:27 Dose: 10 mg Documented by: [email or web address] Admin: 05/25/20 05:37 Dose: 10 mg Documented by: Admin: 05/24/20 23:51 Dose: 10 mg Documented by: Admin: 05/24/20 17:48 Dose: 10 mg Documented by: Admin: 05/24/20 12:47 Dose: 10 mg Documented by: Admin: 05/24/20 05:39 Dose: 10 mg Documented by: Admin: 05/23/20 23:43 Dose: 10 mg Documented by: Admin: 05/23/20 17:16 Dose: 10 mg Documented by: Admin: 05/23/20 11:45 Dose: 10 mg Documented by: Admin: 05/23/20 05:34 Dose: 10 mg Documented by: Admin: 05/23/20 00:31 Dose: 10 mg Documented by: Admin: 05/22/20 18:04 Dose: 10 mg Documented by: Admin: 05/22/20 12:24 Dose: 10 mg Documented by: Admin: 05/22/20 05:22 Dose: 10 mg Documented by: Admin: 05/21/20 23:35 Dose: 10 mg Documented by: Admin: 05/21/20 17:09 Dose: 10 mg Documented by: Admin: 05/21/20 12:00 Dose: 10 mg Documented by: Admin: 05/21/20 05:18 Dose: 10 mg Documented by: Admin: 05/21/20 00:01 Dose: 10 mg Documented by: Admin: 05/20/20 17:28 Dose: 10 mg Documented by: Admin: 05/20/20 12:05 Dose: 10 mg Documented by: Admin: 05/20/20 05:50 Dose: 10 mg Documented by: Admin: 05/20/20 00:28 Dose: 10 mg Documented by: Admin: 05/19/20 17:42 Dose: 10 mg Documented by: Admin: 05/19/20 12:32 Dose: 10 mg Documented by: EDIL Oxycodone HCl (Roxicodone) 10 mg PO Q4HP PRN; Protocol PRN Reason: Per Pain Protocol Last Admin: 05/25/20 02:35 Dose: 10 mg Documented by: Admin: 05/24/20 21:18 Dose: 10 mg Documented by: Admin: 05/24/20 17:06 Dose: 10 mg Documented by: Admin: 05/24/20 09:25 Dose: 10 mg Documented by: Admin: 05/24/20 04:13 Dose: 10 mg Documented by: Admin: 05/23/20 21:51 Dose: 10 mg Documented by: Admin: 05/23/20 17:37 Dose: 10 mg Documented by: Admin: 05/23/20 13:46 Dose: 10 mg Documented by: [email or web address] Pantoprazole Sodium (Protonix) 40 mg IV BIDAC [facility] Admin: 05/25/20 16:40 Dose: 40 mg Documented by: Admin: 05/25/20 08:04 Dose: 40 mg Documented by: Admin: 05/24/20 17:00 Dose: 40 mg Documented by: Admin: 05/24/20 07:43 Dose: 40 mg Documented by: Admin: 05/23/20 16:59 Dose: 40 mg Documented by: Admin: 05/23/20 07:26 Dose: 40 mg Documented by: Admin: 05/22/20 17:16 Dose: 40 mg Documented by: Admin: 05/22/20 07:11 Dose: 40 mg Documented by: Admin: 05/21/20 16:38 Dose: 40 mg Documented by: Admin: 05/21/20 07:45 Dose: 40 mg Documented by: Admin: 05/20/20 17:10 Dose: 40 mg Documented by: Admin: 05/20/20 07:37 Dose: 40 mg Documented by: Admin: 05/19/20 17:42 Dose: 40 mg Documented by: EDIL Potassium Chloride (Kdur) 40 meq PO BIDCC [facility], 1928–1983 Last Admin: 05/25/20 16:41 Dose: 40 meq Documented by: [email or web address] Admin: 05/25/20 08:03 Dose: 40 meq Documented by: Admin: 05/24/20 16:59 Dose: 40 meq Documented by: LAMBERT Sodium Chloride (Saline Flush) 10 ml IV Q8 [facility] Last Admin: 05/25/20 15:32 Dose: 10 ml Documented by: Admin: 05/25/20 05:38 Dose: 10 ml Documented by: Admin: 05/24/20 23:52 Dose: 10 ml Documented by: Admin: 05/24/20 21:19 Dose: 10 ml Documented by: Admin: 05/24/20 14:15 Dose: Not Given Documented by: Admin: 05/24/20 05:39 Dose: 10 ml Documented by: Admin: 05/23/20 21:51 Dose: 10 ml Documented by: Admin: 05/23/20 13:48 Dose: 10 ml Documented by: [email or web address] Admin: 05/23/20 05:34 Dose: Not Given Documented by: Admin: 05/22/20 20:52 Dose: 10 ml Documented by: Admin: 05/22/20 15:40 Dose: Not Given Documented by: Admin: 05/22/20 05:25 Dose: Not Given Documented by: Admin: 05/21/20 20:04 Dose: Not Given Documented by: Admin: 05/21/20 12:03 Dose: Not Given Documented by: Admin: 05/21/20 05:42 Dose: Not Given Documented by: Admin: 05/20/20 22:42 Dose: 10 ml Documented by: Admin: 05/20/20 19:56 Dose: 10 ml Documented by: Admin: 05/20/20 13:01 Dose: Not Given Documented by: Admin: 05/20/20 06:42 Dose: Not Given Documented by: Admin: 05/19/20 21:34 Dose: 10 ml Documented by: Admin: 05/19/20 13:54 Dose: Not Given Documented by: RHINAORGAN Shift Summary 05/25/20 04:33 Shift Summary by Trish Mejía Pt is A&Ox4 and calls appropriately. Pt has ambulated in the halls twice and tolerated well. Roxicodone 10mg PO given x2. Midline incision to abdomen closed with asiya, covered with gauze and tegaderm, has some shadow drainage. Flatus out of colostomy bag and small amount of serosanguineous drainage out of FLAVIA drain. VSS on RA. Pt expected to discharge today. Will update at bedside. Initialized on 05/25/20 04:33 - END OF NOTE
[2020-05-25] MEDS ORDERED: oxyCODONE (PP) 5MG TABLET (#4) PO ONE (19:02)
--- NOTE | 2020-05-29 08:19 | Operative Note ---
PREOPERATIVE DIAGNOSIS: Diverticulitis with pelvic phlegmon. POSTOPERATIVE DIAGNOSIS: Diverticulitis with pelvic phlegmon and colovesical abscess. PROCEDURE: Sigmoid colectomy with colostomy and drainage of pelvic abscess. SURGEON: Nahum Livingston M.D. FINDINGS: Very large phlegmon between bladder and sigmoid colon with residual abscess cavity. DESCRIPTION OF PROCEDURE: Under general anesthesia, the patient's abdomen was prepped and draped in a sterile field. A midline incision was made. Bookwalter retractor was placed. Inspection of the bowel revealed a very large inflammatory mass involving the sigmoid colon, bladder, and small bowel. The bowel was densely adherent to the posterior wall of the bladder. Using electrocautery, the dense adhesive tissue between the two structures was incised. There was a small residual abscess cavity that was entered. This was cultured. The rest of the separation was carried out uneventfully. Once this was done, I was able to mobilize the rest of the distal sigmoid. Once I was below the area of the major infection, I divided the colon using a contour stapler. I divided the colon proximal to the inflammatory mass using a contour stapler. Mesocolon was divided using the [employer] electrical device. Specimen was passed off. Irrigation was carried out. It was felt that there was too much infection to consider reanastomosis at this time. The rectal stump was identified with two sutures of 2-0 Prolene. Opening for the stoma was made in the left lower quadrant and the end of the sigmoid was brought through this. On the peritoneal side, the sigmoid colon was sutured to the peritoneum using interrupted 3-0 silk. A #10 Maksim drain was placed and brought out in the right lower quadrant. Fascia and peritoneum were closed with running #1 Prolene. The subcutaneous tissue was irrigated and closed with 2-0 Monocryl. Skin was closed with asiya. The stoma was matured by suturing the wall of the colon to the anterior rectus fascia with interrupted 3-0 silk. The end of the bowel was sutured to the dermis circumferentially using running locking 3-0 Vicryl. The abdominal wall was cleaned and Tegaderm dressing was placed. Stoma appliance was placed. The drain was secured with 2-0 nylon. The patient tolerated the procedure well. He was awakened and transferred to a bed and taken to the postanesthetic care unit in a stable satisfactory condition. LCS:glen Job ID: [id number] Doc ID: [id number] Nahum Livingston M.D.
== END 2020-05-25 19:30 | disposition home health service (06) | DRG 329 ==
LOC: MEDSUR 04:50
PROVIDERS: ADMIT Family Medicine Adult Medicine; ATTEND Family Medicine Adult Medicine